=== PATIENT | male | born 1955 | race Caucasian/White ===

== ENCOUNTER 2023-01-03 06:44 | Outpatient (OUT) | payer MEDICARE, OTHER, SELFPAY ==
[2023-01-03 07:14] LABS: Basophils Percent Auto 0.4 % (0.2-2.0); Eosinophils Absolute Auto 0.2 10^3/uL (0.0-0.7); Eosinophils Percent Auto 2.5 % (0.9-7.0); Hematocrit 42.1 % (42.0-54.0); Hemoglobin 14.2 g/dL (14.0-18.0); Immature Granulocytes Abs Auto 0.03 10^3/uL (0.00-0.03); Immature Granulocytes Pct Auto 0.4 % (0.0-0.5); Lymphocytes Absolute Auto 2.2 10^3/uL (1.2-3.8); Lymphocytes Percent Auto 31.9 % (20.5-60.0); Mean Corpuscular HGB Conc 33.7 g/dL (29.9-35.2); Mean Corpuscular Hemoglobin 32.6 pg (25.9-34.0); Mean Corpuscular Volume 96.8 fL (80.0-94.0); Mean Platelet Volume 9.8 fL (9.5-13.5); Monocytes Absolute Auto 0.5 10^3/uL (0.3-0.8); Monocytes Percent Auto 6.9 % (1.7-12.0); Neutrophils Percent Auto 57.9 % (43.0-75.0); Platelet Count 189 10^3/uL (150-450); Red Blood Count 4.35 10^6/uL (4.70-6.10); Red Cell Distribution Width 12.9 % (11.0-15.0); White Blood Count 6.8 10^3/uL (4.0-11.0)
[2023-01-03 08:07] LABS: Estimated Average Glucose 105 mg/dL; Glycohemoglobin A1C 5.3 % (4.5-6.2)
[2023-01-03 08:17] LABS: Alanine Aminotransferase 24 U/L (16-63); Albumin Globulin Ratio 1.1; Albumin Level 3.6 g/dL (3.4-5.0); Alkaline Phosphatase 52 U/L (46-116); Anion Gap 13.4; Aspartate Amino Transferase 17 U/L (15-37); BUN Creatinine Ratio 15.2; Bilirubin Total 0.6 mg/dL (0.2-1.0); Calcium 8.6 mg/dL (8.5-10.1); Carbon Dioxide 26.3 mmol/L (21.0-32.0); Chloride 100 mmol/L (98-107); Chol HDL Ratio 4.8; Cholesterol 209 mg/dL (<=200); Estimated GFR (African America >60 (>=60); Estimated GFR (Non-African Ame >60 (>=60); Free T3 2.67 pg/mL (2.18-3.98); Globulin 3.2 g/dL; Glucose 101 mg/dL (74-106); HDL Cholesterol 44 mg/dL (40-60); Potassium 3.7 mmol/L (3.5-5.1); Sodium 136 mmol/L (136-145); Thyroid Stimulating Hormone 1.158 uIU/mL (0.358-3.740); Total Protein 6.8 g/dL (6.4-8.2); Triglycerides 129 mg/dL (<=150); Uric Acid 4.9 mg/dL (3.5-7.2); VLDL CHOLESTEROL 25.8 mg/dL
[2023-01-03 08:25] LABS: Prostate Specific Antigen Dx 0.53 ng/mL (<=4.00)
[2023-01-03 15:24] LABS: Occult Blood Positive
[2023-01-04 11:19] LABS: Insulin 12.9 uIU/mL (2.6-24.9)
== END 2023-01-03 06:45 | disposition home or self-care (01) ==
LOC: LAB 06:44
PROVIDERS: PCP Nurse Practitioner Family; Visit Provider Nurse Practitioner Family
DX: Z00.00 Encounter for general adult medical examination without abnormal findings (principal); E78.5 Hyperlipidemia, unspecified; R73.09 Other abnormal glucose; Z12.5 Encounter for screening for malignant neoplasm of prostate; Z12.12 Encounter for screening for malignant neoplasm of rectum
CPT/HCPCS: 36415; 80053; 80061; 83036; 83525; 84153; 84436; 84443; 84481; 84550; 85025; G0328

== ENCOUNTER 2023-02-08 13:46 | Outpatient (OUT) | payer MEDICARE, OTHER, SELFPAY | END 2023-02-08 13:47 | disposition home or self-care (01) | LOC: PST 13:52 | PROVIDERS: PCP Nurse Practitioner Family; Visit Provider Surgery | DX: Z01.818 Encounter for other preprocedural examination (principal); R19.5 Other fecal abnormalities ==

== ENCOUNTER 2023-02-15 07:12 | Day surgery (SDC) | payer MEDICARE, OTHER, SELFPAY ==
--- NOTE | 2023-02-15 07:10 | P.GSPRC_ITS ---
Date of procedure: 02/15/23 Indications for Procedure: Hemoccult-positive stool Pre-op diagnosis: Hemoccult positive stool Post-op diagnosis: other (superficial gastritis without hemorrhage; diverticulosis descending and sigmoid colon;5 millimeter colon polyp mid ascending colon) Procedure: EGD with biopsy antrum Colonoscopyhot snare polyp mid ascending colon 5 mm Findings: diverticulosis Gastritis without hemorrhage Ascending colon polyp unspecified 5 mm may or may not have been retrieved Anesthesia: [facility] [place] Surgeon: Semaj Adames Procedure Summary: PROCEDURE: The patient was taken to the Endoscopy Suite, placed in the left lateral recumbent position, given IV sedation as above. Olympus EGD scope was advanced under direct visualization into the pharynx esophagus stomach through the pylorus into the 1st 2nd 3rd and 4th portions of the duodenum which were completely normal. The scope was returned to the stomach retroflexed on itself looking the GE junction which was normal. No polyps tumors or ulcers were seen but he did have superficial gastritis without hemorrhage and biopsies were taken in the antrum to rule out H. pylori. The scope was withdrawn to the esophagus which was completely normal including the GE junction. A rectal digital exam was performed. The sphincter tone was found to be normal. No rectal masses were appreciated. The Olympus video colonoscope was advanced under direct visualization to the rectum, sigmoid colon, descending colon, transverse colon and ascending colon to the ileocecal valve. The underside of the valve was seen. the cecal lumen was visualized.The scope was slowly withdrawn with air being desufflated as it was withdrawn. No gross tumors were seen. theree was a small 5 mm polyp in the mid ascending colon which was snared but unsure if it was retrieved or not. It appeared benign. If it was retrieved it was sent to pathology. He had numerous diverticuli in the sigmoid and descending colon. No other pathology was found. The scope was removed from the rectum. Prostate was smooth slightly enlarged without nodules. The patient tolerated the procedure well and went to the Recovery Area in satisfactory condition. I recommend he should follow high-fiber diet for the rest of his life and have surveillance colonoscopy in five years due to the polyp. Will await biopsies for ruling out gastritis or H. pylori.bowel preparation was excellent. Estimated blood loss (mL): 1 Specimens: antral biopsy Colon polyp was retrieved ascending colon Complications: No Pathology: other (antral biopsies and colon polyp if sent) Condition: stable Disposition: PACU
[2023-02-15 07:25] VITALS: BP 122/64; PULSE 66; RESP 16; TEMP 35.9; O2SAT 99; BMI 21.9
[2023-02-15] MEDS: LACTATED RINGER'S SOLUTION 1,000 ML 50 ML IV (07:30)
[2023-02-15 09:22] VITALS: BP 124/76; PULSE 64; RESP 14; TEMP 36.4; O2SAT 99
[2023-02-15 09:37] VITALS: BP 123/74; PULSE 64; RESP 16; O2SAT 97
[2023-02-15 09:50] VITALS: BP 118/73; PULSE 64; RESP 16; O2SAT 98
[2023-02-16 15:31] LABS: H Pylori Tissue, Urease Negative
== END 2023-02-15 09:57 | disposition home or self-care (01) ==
PROVIDERS: PCP Nurse Practitioner Family; Visit Provider Surgery
PROC: (CPT 43239; principal; 2023-02-15 08:10)
DX: R19.5 Other fecal abnormalities (principal); D12.2 Benign neoplasm of ascending colon; K29.30 Chronic superficial gastritis without bleeding; F41.9 Anxiety disorder, unspecified; F32.A Depression, unspecified; E78.5 Hyperlipidemia, unspecified; Z87.891 Personal history of nicotine dependence; K57.30 Diverticulosis of large intestine without perforation or abscess without bleeding
CPT/HCPCS: 43239; 45385; 87077; 88305; 88342; 99999; J2704

== ENCOUNTER 2023-04-13 07:55 | Outpatient (OUT) | payer MEDICARE, OTHER, SELFPAY ==
--- NOTE | 2023-04-13 08:15 | CT_ITS ---
[address] [address] Patient Name: ARMANDO BROOKS MRN: [id number] date: 1955 Sex: M Assigned Patient Location: CT Current Patient Location: Accession/Order Number: [id number] Exam Date: 04/13/2023 08:06 Report Date: 04/14/2023 07:42 At the request of: DON KATZ Procedure: CT lung screening low-dose EXAMINATION: CT lung screening low-dose HISTORY: Former Smoker Z87.891, Multiple Pulmonary Nodules R91.8 COMPARISON: CT LUNG CANCER SCREENING 04/12/2022 TECHNIQUE: Axial, Coronal, and Sagittal images were created without the administration of IV contrast material. Dose reduction techniques were achieved by using automated exposure control and/or adjustment of mA and/or kV according to patient size and/or use of iterative reconstruction technique. FINDINGS: LUNGS: Stable biapical pleural scarring. Minimal emphysematous changes. No suspicious nodules or acute infiltrates. PLEURA: No mass, effusion, or pneumothorax. VASCULATURE: No abnormality. AUDREY: No mass or pathologic adenopathy. MEDIASTINUM: No mass or pathologic adenopathy. CARDIAC: No enlargement, pericardial thickening, or significant calcification. AORTA: No aneurysm or dissection. CHEST WALL: No mass or axillary adenopathy BONES: No bone lesion or fracture. LIMITED ABDOMEN: No suspicious findings. Limited images of the upper abdomen. OTHER: Negative. CT/CT lung screening low-dose IMPRESSION: 1. Lung-RADS Category 1 Negative. No nodules and definitely benign nodules. Continue annual screening with LDCT in 12 months. Electronically authenticated by: BRAVO KHAN Date: 04/14/2023 07:42
== END 2023-04-13 07:56 | disposition home or self-care (01) ==
LOC: CT 07:55
PROVIDERS: PCP Nurse Practitioner Family; Visit Provider Nurse Practitioner Family
DX: R91.8 Other nonspecific abnormal finding of lung field (principal); Z87.891 Personal history of nicotine dependence
CPT/HCPCS: 71271

== ENCOUNTER 2023-06-28 11:01 | Outpatient (OUT) | payer MEDICARE, OTHER, SELFPAY ==
--- NOTE | 2023-06-28 11:03 | ECG_ITS ---
[facility] [place] Test Date: 2023-06-28 Pat Name: ARMANDO BROOKS Department: Room: - Gender: Male [employer]: : 1955 Requested By: EHSAN LUNA Order Number: [id number] Reading MD: KAREN ALFONSO Measurements Intervals [place] Rate: 48 P: 52 MI: 200 QRS: -47 QRSD: 80 T: 78 QT: 447 QTc: 402 Interpretive Statements SINUS BRADYCARDIA LEFT ANTERIOR FASCICULAR BLOCK [QRS AXIS <= -45, QR IN I, RS IN II] No previous ECG available for comparison Electronically Signed On 06-28-2023 22:25:46 EST by KAREN ALFONSO
--- OUTSIDE RECORDS SUMMARY | 2023-06-28 11:07 | XMS_ITS | CCD ---
Author Name Unknown Address [address] [facility] [address] [place] [address] Organization [facility] Care Team Providers Care Certified Physician'S Assistant Name Role Phone DON KATZ Primary Care Physician Kurt Cooper Unavailable DON KATZ Admitting Unavailable DON KATZ Attending Unavailable OSMANI, DR KURT Hairston Consulting Unavailable STERLING, DON Primary Care Unavailable STERLING, DON Consulting Unavailable ODELL, DR DAVIS Consulting Unavailable ODELL, DR DAVIS Admitting Unavailable ODELL, DR DAVIS Attending Unavailable STERLING, DON Primary Care Unavailable ERIN, DR BRAVO Ford Consulting Unavailable STERLING, DON Admitting Unavailable STERLING, DON Attending Unavailable STERLING, DON Consulting Unavailable STERLING, DON Primary Care Unavailable STERLING, DON Admitting Unavailable STERLING, DON Attending Unavailable STERLING, DON Primary Care Unavailable TWILA FALLON Admitting Unavailable TWILA FALLON Attending Unavailable TWILA FALLON Consulting Unavailable STERLING, DON Primary Care Unavailable RHYS THAO Consulting Unavailable STERLING, DON Admitting Unavailable STERLING, DON Attending Unavailable STERLING, DON Primary Care Unavailable Semaj LUNA Attending Unavailable DON KATZ S Referring Unavailable Medications Current Medications Medication Drug Class(es) Dates Sig (Normalized) Sig (Original) ALPRAZolam 0.5 mg oral tablet (6 sources) Benzodiazepine Start: 01-29-2021 take 1 tablet by mouth once daily alprazolam 0.5 mg Tab 0.5 mg = 1 tab(s), Oral, Daily, Refills(s) 0 Start Date: 01/29/21 Status: Ordered amylase [id number] unt / lipase 61737 unt / protease [id number] unt delayed release oral capsule (4 sources) take 1 capsule by mouth three to four times daily Zenpep [id number] UNIT 1 CAPSULE Orally 3-4 TIMES A DAY Active chlordiazePOXIDE hydrochloride 5 mg / clidinium bromide 2.5 mg oral capsule (3 sources) Anticholinergic, Benzodiazepine Start: 10-28-2021 take 1 capsule by mouth every eight hours Librax 5-2.5 MG 1 CAPSULE Orally Three times a day for 30 day(s) Oct, Active escitalopram 20 mg oral tablet (6 sources) Serotonin Reuptake Inhibitor Start: 11-26-2020 take 1 mg by mouth once daily escitalopram 20 mg Tab mg tab(s), Oral, Daily, Refills(s) 0 Start Date: 11/26/20 Status: Ordered 12 hr hyoscyamine sulfate 0.375 mg extended release oral tablet (2 sources) Start: 11-09-2021 take 1 tablet by mouth every twelve hours Hyoscyamine Sulfate ER 0.375 MG 1 tablet Orally every 12 hrs for 30 days Oct, Active lovastatin 20 mg oral tablet (6 sources) HMG-CoA Reductase Inhibitor Start: 11-26-2020 take 1 mg by mouth once daily lovastatin 20 mg Tab mg tab(s), Oral, Daily, Refills(s) 0 Start Date: 11/26/20 Status: Ordered meloxicam 15 mg oral tablet (2 sources) Nonsteroidal Anti-inflammatory Drug Start: 11-26-2020 take 1 mg by mouth once daily meloxicam 15 mg oral tablet mg tab(s), Oral, Daily, Refills(s) 0 Start Date: 11/26/20 Status: Ordered omeprazole 40 mg delayed release oral capsule (5 sources) Proton Pump Inhibitor Start: 01-29-2021 take 1 capsule by mouth once daily omeprazole 40 mg Cap-DR 40 mg = 1 cap(s), Oral, Daily, Refills(s) 0 Start Date: 01/29/21 Status: Ordered omeprazole 40 mg Cap-DR (1 source) Start: 01-29-2021 take 1 capsule by mouth once daily omeprazole 40 mg Cap-DR 40 mg = 1 cap(s), Oral, Daily, Refills(s) 0 Start Date: 01/29/21 Status: Ordered pantoprazole 40 mg delayed release oral tablet (3 sources) Proton Pump Inhibitor Start: 10-28-2021 take 1 tablet by mouth every twenty-four hours Pantoprazole Sodium 40 MG 1 tablet Orally Once a day for 30 days Oct, Active sucralfate 1000 mg oral tablet (4 sources) Aluminum Complex Start: 10-13-2021 take 1 tablet by mouth every eight hours Sucralfate 1 GM 1 TABLET Orally THREE TIMES A DAY for 30 day(s) Oct, Active traZODone hydrochloride 50 mg oral tablet (6 sources) Serotonin Reuptake Inhibitor Start: 11-26-2020 take 1 mg by mouth twice daily traZODONE 50 mg Tab mg tab(s), Oral, BID, Refills(s) 0 Start Date: 11/26/20 Status: Ordered take [facility] every twenty-four hours traZODone HCl 50 MG 1 tablet at bedtime as needed Orally Once a day Active 24 hr venlafaxine 75 mg extended release oral capsule (2 sources) Serotonin and Norepinephrine Reuptake Inhibitor Start: 01-29-2021 take 1 capsule by mouth once daily venlafaxine 75 mg Cap-ER 75 mg = 1 cap(s), Oral, Daily, Refills(s) 0 Start Date: 01/29/21 Status: Ordered Start: 01-29-2021 take 1 capsule by mo [facility] once daily venlafaxine 75 mg Cap-ER 75 mg = 1 cap(s), Oral, Daily, Refills(s) 0 Start Date: 01/29/21 Status: Ordered Problems Active Problems Problem Classification Problem Date Documented Da te Episodic/Chronic Abdominal pain (3 sources) Epigastric pain; Translations: [Upper abdominal pain, unspecified] Onset: 10-13-2021 Resolved: 10-13-2021 01-29-2021 Episodic Anxiety disorders (2 sources) Mixed anxiety and depressive disorder 11-26-2020 Chronic Diabetes mellitus without complication (1 source) Type 2 diabetes mellitus without complications; Translations: [TYPE 2 DM WITHOUT COMPLICATIONS] Onset: 01-10-2022 Chronic Disorders of lipid metabolism (6 sources) Hyperlipidemia; Translations: [Hyperlipidemia, unspecified] Onset: 01-08-2022 11-26-2020 Chronic Gastritis and duodenitis (2 sources) Chronic superficial gastritis 02-25-2021 Chronic Other gastrointestinal disorders (4 sources) Irritable bowel syndrome with diarrhea; Translations: [Irritable bowel syndrome with diarrhea] Chronic Other gastrointestinal disorders (1 source) Irritable bowel syndrome with diarrhea Onset: 10-13-2021 Resolved: 10-13-2021 Chronic Other gastrointestinal disorders (2 sources) Disorder of intestine; Translations: [Other specified diseases of intestine] Onset: 10-07-2021 Episodic Other gastrointestinal disorders (2 sources) Borborygmi 01-29-2021 Episodic Other nutritional; endocrine; and metabolic disorders (2 sources) Decrease in appetite 01-28-2021 Episodic Other nutritional; endocrine; and metabolic disorders (2 sources) Loss of appetite 01-29-2021 Episodic Other skin disorders (2 sources) Epidermoid cyst of skin of neck 11-26-2020 Episodic Other skin disorders (2 sources) Infection of sebaceous cyst 2020 Episodic Other skin disorders (2 sources) Night sweats 01-29-2021 Episodic Pancreatic disorders (not diabetes) (3 sources) Disorder of pancreas; Translations: [Other specified diseases of pancreas] Onset: 10-07-2021 Resolved: 10-13-2021 Episodic Residual codes; unclassified (2 sources) Early satiety 01-29-2021 Episodic Residual codes; unclassified (2 sources) Insomnia 11-26-2020 Episodic Screening and history of mental health and substance abuse codes (5 sources) Personal history of nicotine dependence; Translations: [PERSONAL HISTORY OF NICOTINE DEPEND] Onset: 10-18-2021 Episodic Spondylosis; intervertebral disc disorders; other back problems (5 sources) Spondylosis without myelopathy or radiculopathy, cervical region; Translations: [Spondylosis without myelopathy or radiculopathy, thoracic region] Onset: 07-29-2021 Chronic Unclassified (2 sources) Body mass index 20-24 - normal 01-29-2021 Past or Other Problems Problem Classification Problem Date Documented Da te Episodic/Chronic E Codes: Other specified and classifiable (1 source) Caught, crushed, jammed, or pinched between moving objects, initial encounter; Translations: [CAUGHT CRUSH/PINCH BTWN MOV OBJ INT] Onset: 10-18-2021 Episodic Malaise and fatigue (1 source) Other fatigue; Translations: [OTHER FATIGUE] Onset: 01-10-2022 Episodic Other aftercare (1 source) Other nursing home (current) drug therapy; Translations: [OTH SENIOR CARE CURRENT DRUG THERAPY] Onset: 10-18-2021 Episodic Other connective tissue disease (3 sources) Pain in right finger(s); Translations: [PAIN IN RIGHT FINGERS] Onset: 10-10-2021 Episodic Other connective tissue disease (1 source) Abnormal posture; Translations: [ABNORMAL POSTURE] Onset: 08-03-2021 Episodic Spondylosis; intervertebral disc disorders; other back problems (5 sources) Cervicalgia; Translations: [CERVICALGIA] Onset: 07-26-2021 Episodic Sprains and strains (1 source) Unspecified sprain of right middle finger, initial encounter; Translations: [UNS SPRAIN RT MIDDLE FINGER INITIAL] Onset: 10-18-2021 Episodic Results Test Name Value Interpretation Reference Range Facility Consent for Procedure/Surger yon 06-22-2023 Consent for Procedure/Surgery [id number] Normal [facility] Ambulatory Visit Summaryon 0 06-20-2023 Ambulatory Visit Summary ARMANDO ZHU Liliana :1955 Visit Date:06/20/2023 Ambulatory Visit Instructions Your Care Team Attending Physician - Semaj LUNA MD Primary Care Physician - DON KATZ CNP Referring Physician - DON KATZ CNP This Is Your Medications List Contact prescribing physician if questions or concerns alprazolam (alprazolam 0.5 mg Tab) escitalopram (escitalopram 20 mg Tab) hyoscyamine (Levsin 0.125 mg SL Tab) lovastatin (lovastatin 40 mg Tab) trazodone (traZODONE 50 mg Tab) Procedures Performed EGD - Esophagogastroduodenoscopy (02/17/2021), Colonoscopy (11/12/2019), Tonsillectomy and adenoidectomy. Discharge Vitals Heart Rate (Peripheral) 60 Respiratory Rate 16 Blood Pressure 100/66 Height 177.8 cm Height 70 in Weight 70.7 kg Weight 155.54 lb BMI 22.36 Medications What How Much When Instructions Unchanged alprazolam (alprazolam 0.5 mg Tab) 1 Tablets By Mouth Every day Contact prescribing physician if questions or concerns Unchanged escitalopram (escitalopram 20 mg Tab) By Mouth Every day Contact prescribing physician if questions or concerns Unchanged hyoscyamine (Levsin 0.125 mg SL Tab) 1 Tablets By Mouth 2 times a day Contact prescribing physician if questions or concerns Unchanged lovastatin (lovastatin 40 mg Tab) 1 Tablets By Mouth Every day Contact prescribing physician if questions or concerns Unchanged trazodone (traZODONE 50 mg Tab) By Mouth 2 times a day Contact prescribing physician if questions or concerns Allergies No Known Allergies Problems Ongoing - Any problem that you are currently receiving treatment for. BMI 22.0-22.9, adult Borborygmus Depression with anxiety Diverticular disease of colon Early satiety Emphysema lung Epidermoid cyst of neck Epigastric pain Gastritis Hyperlipidemia Infected sebaceous cyst Insomnia Irritable bowel syndrome with diarrhea Multiple nodules of lung Night sweats Historical - Any problem that you are no longer receiving treatment for. Decreased appetite Loss of appetite for more than 2 weeks Patient Survey You may receive a survey via text or e-mail asking about your office visit. Please share your experience with us by completing your survey. We appreciate your feedback and thank you for choosing us for your care. Normal [facility] Facesheeton 06-20-2023 Facesheet [id number] Normal [facility] Physician Referralon 024 Physician Referral [id number] Normal [facility] CT LUNG CANCER SCREENINGon 06-13-2021 CT LUNG CANCER SCREENING EXAMINATION: CT LUNG CANCER SCREENING HISTORY: Nicotine dependence COMPARISON: CT chest 03/26/2021 TECHNIQUE: Axial, Coronal, and Sagittal images were created without the administration of IV contrast material. Dose reduction techniques were achieved by using automated exposure control and/or adjustment of mA and/or kV according to patient size and/or use of iterative reconstruction technique. FINDINGS: LUNGS: Mild emphysematous changes and stable 5 mm nodule versus scarring within left lung base adjacent diaphragm. PLEURA: Biapical pleural scarring. No pleural effusion or pneumothorax. VASCULATURE: No abnormality. AUDREY: No mass or pathologic adenopathy. MEDIASTINUM: No mass or pathologic adenopathy. CARDIAC: No enlargement, pericardial thickening, or significant calcification. AORTA: No aneurysm or dissection. CHEST WALL: No mass or axillary adenopathy BONES: No bone lesion or fracture. LIMITED ABDOMEN: No suspicious findings. Limited images of the upper abdomen. OTHER: Negative. IMPRESSION: 1. Lung-RADS Category 1 Negative. No nodules and definitely benign nodules. Continue annual screening with LDCT in 12 months. 2. Stable mild emphysematous changes and biapical pleural scarring. Electronically authenticated by: BRAVO KHAN Date: 2022-04-13 06:42 Normal [facility] INSULINon 01-10-2022 Insulin 15.8 uIU/mL Normal 2.6-24.9 [facility] Comment on above: Performed By: #### I NSULIN #### [facility] [address] [address] [address] Yarelis Peñaloza CBC AUTO DIFFon 01-08-2022 BASO # 0.0 103/ul Normal 0.0-0.1 [facility] Comment on above: Performed By: #### C BC ####[facility] [address] [address]DrSotero Peñaloza Basophils/100 WBC (Bld) 0.5 % Normal 0.2-2.0 [facility] Comment on above: Performed By: #### C BC ####[facility] [address] [address]Dr. Yarelis Peñaloza EO # 0.1 103/ul Normal 0.0-0.7 [facility] Comment on above: Performed By: #### C BC ####[facility] [address] [address]Dr. Yarelis Peñaloza Eosinophils/100 WBC (Bld) 1.0 % Normal 0.9-7.0 [facility] Comment on above: Performed By: #### C BC ####[facility] [address] [address]DrSotero Peñaloza Erythrocyte distribution width (RBC) [Ratio] 11.9 % Normal 11.0-15.0 [facility] Comment on above: Performed By: #### C BC ####[facility] [address] [address]DrSotero Peñaloza Hematocrit (Bld) [Volume fraction] 42.5 % Normal 42.0-54.0 [facility] Comment on above: Performed By: #### C BC ####[facility] [address] [address]Dr. Yarelis Peñaloza Hemoglobin (Bld) [Mass/Vol] 14.5 g/dL Normal 14.0-18.0 [facility] Comment on above: Performed By: #### C BC ####[facility] [address] [address]Dr. Yarelis Peñaloza IG # 0.04 10e3/ul Critically high 0.00-0.03 [facility] Comment on above: Performed By: #### C BC ####[facility] [address] [address]Dr. Yarelis Peñaloza IG % 0.5 % Normal 0.0-0.5 [facility] Comment on above: Performed By: #### C BC ####[facility] [address] [place], [place] [address]DrSotero Peñaloza LYMPH # 1.8 103/ul Normal 1.2-3.8 [facility] Comment on above: Performed By: #### C BC ####[facility] [address] [place], [place] [address]Dr. Yarelis Peñaloza Lymphocytes/100 WBC (Bld) 20.7 % Normal 20.5-60.0 [facility] Comment on above: Performed By: #### C BC ####[facility] [address] [address]DrSotero Peñaloza MANUAL DIFF REQ NO Normal [facility] Comment on above: Performed By: #### C BC ####[facility] [address] [place], [place] [address]DrSotero Peñaloza MCH (RBC) [Entitic mass] 32.5 pg Normal 25.9-34.0 [facility] Comment on above: Performed By: #### C BC ####[facility] [address] [place], [place] [address]DrSotero Peñaloza MCHC (RBC) [Mass/Vol] 34.1 g/dL Normal 29.9-35.2 [facility] Comment on above: Performed By: #### C BC ####[facility] [address] [place], [place] [address]DrSotero Santoyo Peñaloza MCV (RBC) [Entitic vol] 95.3 fL Critically high 80.0-94.0 [facility] Comment on above: Performed By: #### C BC ####[facility] [address] [address]Dr. Yarelis Peñaloza MONO # 0.6 103/ul Normal 0.3-0.8 [facility] Comment on above: Performed By: #### C BC ####[facility] [address] [place], [place] [address]Dr. Yarelis Jh Monocytes/100 WBC (Bld) 7.1 % Normal 1.7-12.0 [facility] Comment on above: Performed By: #### C BC ####[facility] [address] [place], [place] [address]Dr. Yarelis Peñaloza NEUT # 6.1 103/ul Normal 1.4-6.5 [facility] Comment on above: Performed By: #### C BC ####[facility] [address] [place], [place] [address]Dr. Yarelis Jh Neutrophils/100 WBC (Bld) 70.2 % Normal 43.0-75.0 [facility] Comment on above: Performed By: #### C BC ####[facility] [address] [place], [place] [address]Dr. Yarelis Peñaloza Platelet mean volume (Bld) [Entitic vol] 9.8 fL Normal 9.5-13.5 [facility] Comment on above: Performed By: #### C BC ####[facility] [address] [place], [place] [address]Dr. Yarelis Jh PLT 241 103/ul Normal 150-450 [facility] Comment on above: Performed By: #### C BC ####[facility] [address] [place], [place] [address]DrSotero Yarelis Jh RBC 4.46 106/ul Critically low 4.70-6.10 [facility] Comment on above: Performed By: #### C BC ####[facility] [address] [place], [place] [address]Dr. Yarelis Peñaloza WBC 8.7 103/ul Normal 4.0-11.0 [facility] Comment on above: Performed By: #### C BC ####[facility] [address] [place], [place] [address]DxDr. Yarelis Peñaloza GLYCOHEMOGLOBIN A1Con 2021 ADA RECOMMENDATION SEE BELOW Normal [facility] Comment on above: Result Comment: ADA RECOMMENDED LIMIT 4.0 - 6.0 ADA THERAPEUTIC TARGET < 7.0 ACTION SUGGESTED > 7.0 Performed By: #### A 1C #### [facility] [address] [address] [address] Yarelis Peñaloza Glucose [Mass/Vol] 108 mg/dL Normal [facility] Comment on above: Performed By: #### A 1C #### [facility] [address] [address] [address] Yarelis Peñaloza HbA1c (Bld) [Mass fraction] 5.4 % Normal 4.5-6.2 [facility] Comment on above: Performed By: #### A 1C #### [facility] [address] [address] [address] Yarelis Peñaloza LIPID PROFILEon 01-08-2022 CHOL-HDL RATIO NORM SEE BELOW Normal [facility] Comment on above: Result Comment: 3.3 - 4.4 LOW RISK 4.4 - 7.1 AVERAGE RISK 7.1 - 11.0 MODERATE RISK >11.0 HIGH RISK Performed By: #### L IPID, CMP, URIC #### [facility] [address] [address] [address] Yarelis Peñaloza Cholesterol [Mass/Vol] 174 mg/dL Normal <=200 [facility] Comment on above: Performed By: #### L IPID, CMP, URIC #### [facility] [address] [address] [address] Yarelis Peñaloza Cholesterol in HDL [Mass/Vol] 38 mg/dL Critically low 40-60 [facility] Comment on above: Performed By: #### L IPID, CMP, URIC #### [facility] [address] [address] [address] Yarelis Peñaloza Cholesterol in LDL [Mass/Vol] 111.4 mg/dL Normal [facility] Comment on above: Performed By: #### L IPID, CMP, URIC #### [facility] [address] [place] [address] Dr. Yarelis Peñaloza Cholesterol.total/ Cholesterol in HDL [Mass ratio] 4.6 {ratio} Normal [facility] Comment on above: Performed By: #### L IPID, CMP, URIC #### [facility] [address] [address] [address] Yarelis Peñaloza HDL NORMAL > or = 60 mg/dl - LO W CARDIOVASCULAR RISK <40 mg/dl - HIGH CARDIOVASCULAR RISK Normal [facility] Comment on above: Performed By: #### L IPID, CMP, URIC #### [facility] [address] [place] [address] Dr. Yarelis Peñaloza LDL CALC NORMAL SEE BELOW Normal [facility] Comment on above: Result Comment: <100 mg/dl OPTIMAL 100 - 129 mg/dl NEAR OR ABOVE OPTIMAL 130 - 159 mg/dl BORDERLINE HIGH 160 - 189 mg/dl HIGH >190 mg/dl VERY HIGH Performed By: #### L IPID, CMP, URIC #### [facility] [address] [address] [address] Yarelis Peñaloza Triglyceride [Mass/Vol] 123 mg/dL Normal <=150 [facility] Comment on above: Performed By: #### L IPID, CMP, URIC #### [facility] [address] [place] [address] Dr. Yarelis Peñaloza VLDL CALC 24.6 mg/dL Normal [facility] Comment on above: Performed By: #### L IPID, CMP, URIC #### [facility] [address] [place] [address] Dr. Yarelis Peñaloza PROF 14(COMP METB)on 022 Albumin [Mass/Vol] 3.8 g/dL Normal 3.4-5.0 [facility] Comment on above: Performed By: #### L IPID, CMP, URIC #### [facility] [address] [place] [address] Dr. Yarelis Peñaloza Albumin/Globulin [Mass ratio] 1.2 {ratio} Normal [facility] Comment on above: Performed By: #### L IPID, CMP, URIC #### [facility] [address] [address] [address] Yarelis Peñaloza ALP [Catalytic activity/Vol] 67 U/L Normal 46-116 [facility] Comment on above: Performed By: #### L IPID, CMP, URIC #### [facility] [address] [place] [address] Dr. Yarelis Peñaloza ALT [Catalytic activity/Vol] 14 U/L Critically low 16-63 [facility] Comment on above: Performed By: #### L IPID, CMP, URIC #### [facility] [address] [place] [address] Dr. Yarelis Peñaloza Anion gap [Moles/Vol] 12.7 mmol/L Normal [facility] Comment on above: Performed By: #### L IPID, CMP, URIC #### [facility] [address] [place] [address] Dr. Yarelis Peñaloza AST [Catalytic activity/Vol] 11 U/L Critically low 15-37 [facility] Comment on above: Performed By: #### L IPID, CMP, URIC #### [facility] [address] [place] [address] Dr. Yarelis Peñaloza Bilirubin [Mass/Vol] 0.7 mg/dL Normal 0.2-1.0 [facility] Comment on above: Performed By: #### L IPID, CMP, URIC #### [facility] [address] [place] [address] Dr. Yarelis Peñaloza Calcium [Mass/Vol] 8.6 mg/dL Normal 8.5-10.1 [facility] Comment on above: Performed By: #### L IPID, CMP, URIC #### [facility] [address] [place] [address] Dr. Yarelis Peñaloza Chloride [Moles/Vol] 103 mmol/L Normal 98-107 [facility] Comment on above: Performed By: #### L IPID, CMP, URIC #### [facility] [address] [place] [address] Dr. Yarelis Peñaloza CO2 [Moles/Vol] 26.9 mmol/L Normal 21.0-32.0 [facility] Comment on above: Performed By: #### L IPID, CMP, URIC #### [facility] [address] [address] [address] Yarelis Peñaloza Creatinine [Mass/Vol] 0.97 mg/dL Normal 0.70-1.30 [facility] Comment on above: Performed By: #### L IPID, CMP, URIC #### [facility] [address] [address] [address] Yarelis Peñaloza EGFR-AF WALLISIAN >60 Normal >=60 [facility] Comment on above: Performed By: #### L IPID, CMP, URIC #### [facility] [address] [address] [address] Yarelis Peñaloza EGFR-NON AF WALLISIAN >60 Normal >=60 [facility] Comment on above: Performed By: #### L IPID, CMP, URIC #### [facility] [address] [address] [address] Yarelis Peñaloza Globulin (S) [Mass/Vol] 3.2 g/dL Normal [facility] Comment on above: Performed By: #### L IPID, CMP, URIC #### [facility] [address] [place] [address] Dr. Yarelis Peñaloza Glucose [Mass/Vol] 102 mg/dL Normal 74-106 [facility] Comment on above: Performed By: #### L IPID, CMP, URIC #### [facility] [address] [address] [address] Yarelis Peñaloza Potassium [Moles/Vol] 3.6 mmol/L Normal 3.5-5.1 [facility] Comment on above: Performed By: #### L IPID, CMP, URIC #### [facility] [address] [address] [address] Yarelis Peñaloza Protein [Mass/Vol] 7.0 g/dL Normal 6.4-8.2 [facility] Comment on above: Performed By: #### L IPID, CMP, URIC #### [facility] [address] [address] [address] Yarelis Peñaloza Sodium [Moles/Vol] 139 mmol/L Normal 136-145 [facility] Comment on above: Performed By: #### L IPID, CMP, URIC #### [facility] [address] [address] [address] Yarelis Peñaloza Urea nitrogen [Mass/Vol] 17.0 mg/dL Normal 7.0-18.0 [facility] Comment on above: Performed By: #### L IPID, CMP, URIC #### [facility] [address] [address] [address] Yarelis Peñaloza Urea nitrogen/Creatinin e [Mass ratio] 17.5 mg/mg Normal [facility] Comment on above: Performed By: #### L IPID, CMP, URIC #### [facility] [address] [place] [address] Dr. Yarelis Peñaloza URIC ACID SERUMon 01-08-2022 Urate [Mass/Vol] 4.8 mg/dL Normal 3.5-7.2 [facility] Comment on above: Performed By: #### L IPID, CMP, URIC #### [facility] [address] [address] [address] Yarelis Peñaloza [place] hepatobiliary w pharmon 0 10-21-2021 [place] hepatobiliary w pharm [facility] [place] [address] Nuclear Medicine Report Signed Patient: Armando Zhu MR#: [id number] 4 : 1955 Acct:[id number] Age/Sex: 65 / M ADM Date: 10/21/21 Loc: [place] Room: Type: [facility] Attending Dr: Kurt Cooper DO Ordering Provider: Kurt Cooper Jr, DO Date of Service: 10/21/21 NM/NM hepatobiliary w pharm: Upper abdominal pain Copies to: DO Marlo Hollis Jr, II, MD Pamela Sue Cramer, [employer] [place] hepatobiliary w pharm 10/21/2021 8:45 AM SIGN AND SYMPTOMS: Nausea, vomiting, bloating, abdominal pain PROTOCOL: Following IV administration of Tc-99m mebrofenin 1 hour of dynamic imaging of gallbladder and liver. Following the visualization of the gall bladder one static right lateral image was obtained. Following IV administration of CCK, 30 minutes of dynamic imaging obtained. RADIOPHARMACEUTICAL: 6.5 mCi of intravenous technetium 99m MDP COMPARISON: None. FINDINGS: Normal hepatic transit time. Prompt excretion into the small bowel. Prompt excretion into the gallbladder. Gallbladder ejection fraction is calculated at 58.8%. NM/NM hepatobiliary w pharm IMPRESSION: No evidence of acute cholecystitis. There is a normal gallbladder ejection fraction. Impression dictated by: Marlo Payton M.D.10/21/2021 2:05 PM Dictation Location: [place] [address] Transcribed By: [facility] 10/21/211404 Dictated By: Marlo Payton II, MD 10/21/211401 Signed By: 10/21/21 140 [facility] XR HAND RT MIN 3Von 10-11-19 XR HAND RT MIN 3V EXAM: XR HAND RT MIN 3V DATE: 10/10/2021 12:54 PM EDT INDICATION: Swelling COMPARISON: None. TECHNIQUE: 3 views right hand FINDINGS: No acute fracture. Normal osseous alignment. Mild soft tissue swelling of the dorsal hand. No retained radiopaque foreign body. IMPRESSION: 1. No acute osseous abnormality. 2. Mild soft tissue swelling of the hand. Electronically authenticated by: RHYS THAO Date: 2021-10-10 13:44 Normal [facility] XR CSPINE MIN 4 VIEWSon 07-13 XR CSPINE MIN 4 VIEWS EXAMINATION: XR CSPINE MIN 4 VIEWS, XR TSPINE 3 VIEWS HISTORY: Neck pain COMPARISON: No relevant comparison available. FINDINGS: BONES: Normal alignment of the cervical and thoracic spine on the lateral projections. 9 degrees of thoracic dextrocurvature measured from T1 to T11. Moderate degenerative changes C5-C6. Mild degenerative changes throughout the remainder of the spine DISC SPACES: Moderate disc space narrowing C5-C6 PARASPINOUS: Negative. No paraspinous abnormality is seen. OTHER: Negative. IMPRESSION: Moderate degenerative changes C5-C6 Dextrocurvature of the thoracic spine Electronically authenticated by: KURT KEEN Date: 2021-07-26 14:30 Normal [facility] Vital Signs Date Time Vital Sign Value Performing Clinician Dina william 10-13-2021 14:30-0400 Body height 177.8 cm Kurt Cooper Other [employer] Other 10-13-2021 14:30-0400 Body mass index (BMI) [Ratio] 24.1 kg/m2 Kurt Cooper Other [employer] Other 10-13-2021 14:30-0400 Body weight 76.2 kg Kurt Cooper Other [employer] Other 10-13-2021 14:30-0400 Diastolic blood pressure 74 mm[Hg] Kurt Cooper Other [employer] Other 10-13-2021 14:30-0400 Systolic blood pressure 136 mm[Hg] Kurt Cooper Other [employer] Other 10-07-2021 13:26-0400 Diastolic blood pressure 67 mm[Hg] [place]Exactly [facility] 10-07-2021 13:26-0400 Systolic blood pressure 113 mm[Hg] [place]Exactly [facility] Encounters Encounter Date Encounter Type Care Provider Facility Start: 06-20-2023 End: 06-21-2023 ambulatory Semaj LUNA Facility:[facility] Start: 04-12-2022 End: 04-13-[address] SUSAN BAIN Facility: Start: 01-08-2022 End: 01-09-2022 ambulatory DON KATZ Facility:[facility] Start: 12-29-2021 End: 12-29-2021 Patient encounter procedure Thing5 [facility] Start: 12-01-2021 End: 12-01-2021 ambulatory Kurt Cooper Other [employer] Other Start: 12-01-2021 Telephone encounter Kurt Cooper [facility] Start: 11-09-2021 End: 11-09-2021 ambulatory Kurt Cooper Other [employer] Other Start: 11-09-2021 Telephone encounter Kurt Cooper [facility] Start: 10-28-2021 End: 10-28-2021 ambulatory Kurt Cooper Other [facility] Other Start: 10-28-2021 Telephone encounter Kurt Cooper [facility] Start: 10-13-2021 End: 10-13-2021 ambulatory Kurt Cooper Other [employer] Other Start: 10-13-2021 Office outpatient ne w 45 minutes Kurt Cooper [facility] Start: 10-10-2021 End: 10-10-2021 ambulatory TWILA FALLON Facility:[facility] Start: 10-07-2021 End: 10-07-2021 Patient encounter procedure Hue ALMONTE [facility] Start: 10-06-2021 ambulatory DON KATZ Facility: [facility] Start: 07-29-2021 End: 08-18-2021 ambulatory DON KATZ Facility:[facility] Start: 07-26-2021 End: 07-27-2021 ambulatory DON KATZ Facility:[facility] Procedures Date Procedure Procedure Detail Performing Clinician Start: 01-08-2022 PSA screening DON DAVID Comment on above: Performed By: #### P [facility] #### [facility] [address] [place] [address] Dr. Yarelis Peñaloza Start: 02-17-2021 Esophagogastroduodenoscopy Hue Asencio Start: 11-12-2019 Colonoscopy Hue Asencio Tonsillectomy and adenoidectomy Hue ALMONTE Immunizations Immunization Date Immunization Notes Care Provider Fa efrainty 03-15-2021 influenza virus vaccine, unspecified formulation Hue ALMONTE [facility] Payers Date Payer Category Payer Medicare [id number] 2023 Unknown [id number] 1957 Self-pay 1959 Unknown [id number] 2. [id number] 1957 Unknown [id number] 2.16.84 [id number] 1957 Unknown [id number] 2.16.84 [id number] 1957 Unknown [id number] 2.16.84 [id number] 1957 Unknown [id number] 2.16.84 [id number] 1957 Unknown [id number] 2.16.84 [id number] 1957 Unknown [id number] 2.16.84 [id number] 1957 Unknown [id number] 2.16.8 [id number] Social History Date Type Detail Facility Start: 10-07-2021 Tobacco smoking status Ex-smoker (fi nding) [facility] Tobacco smoking status Never [facility] Sex Assigned At Male [facility] Clinical Note 06-20-2023 Note Date & Type Note Facility 06-20-2023 Note Chief Complaint consultation for left inguinal hernia HPI Staff 67 year old male presents on consultation from Pennie Kazt for left inguinal hernia. Reports he noted bulge March 2023. Denies not believe this has changed in size since first noted. He is able to reduce bulge without difficulty. Bulge has never been red. Denies nausea or vomiting. Verbalized he struggles with difficulty moving bowels and pain near area of bulge if he does not take daily fiber supplement. No imaging completed. History of Present Illness 67 yo male with h/o hyperlipidemia, depression with anxiety, referred for Left inguinal hernia; patient noted left groin bulge in March, slight increase in size since then, occasional discomfort; no skin changes, no N/V or bowel changes; reduces spontaneously when he lies down; no previous abd operations; no asa or NSAID use; no tobacco use. Review of Systems PHQ Score Initial Depression Screen Score: 0 SCORE ROS - Provider Constitutional: no fever, no sweats, no weight loss. Eyes: no glasses, no blurred vision, no visual loss. ENMT: no dentures, no hoarseness, no swallowing difficulties, no hearing loss, no ear infection(s), no nose bleeds. Cardiovascular: normal blood pressure, no chest pain, regular heartbeat, no heart murmur. Respiratory: no shortness of breath, no cough, no asthma, no wheezing. Gastrointestinal: no nausea, no vomiting, no diarrhea, no constipation, no blood in stool, no change in bowel habits, no abdominal pain, no hepatitis. Genitourinary: no kidney stones, no urine infection, no dysuria. Musculoskeletal: no pain, no weakness. Skin: no changing moles, no rash, no skin lumps. Neurologic: no seizures, no epilepsy, no headache. Psychiatric: no emotional or psychiatric problem. Heme/Lymph: no bleeding problems, no anemia, no blood clots, no transfusions. Allergy/Immunologic: no swollen lymph nodes/glands, no IV drug abuse. Other: Additional ROS info: Except as noted in the above Review of Systems and in the History of Present Illness, all other systems have been reviewed and are negative or noncontributory. Physical Exam Vitals & Measurements HR: 60(Peripheral) RR: 16 BP: 100/66 HT: 70 in HT: 177.8 cm WT: 70.7 kg WT: 155.54 lb BMI: 22.36 HEENT: normal conjunctiva, sclera clear, no scleral icterus, EOM intact, PERRLA, oral mucosa moist without lesions. Neck: trachea midline, no mass, symmetric, no thyromegaly or nodules, no adenopathy Respiratory: lungs CTA, respirations non labored. Cardiovascular: regular rate and rhythm, no murmur, no pedal edema or varicosities. Gastrointestinal: soft, non distended, no tenderness, no masses, reducible left inguinal hernia, no skin changes, diastasis recti no, no hepatosplenomegaly; normal bs Lymphatic: no cervical adenopathy, no supraclavicular adenopathy, no inguinal adenopathy. Musculoskeletal: normal gait, digits and nails without infection, nodes, cyanosis, clubbing. Skin: no rashes, no lesions, no ulcers, no subcutaneous nodules, induration. Psychiatric/Neuro: oriented to time, place, person, judgement normal, affect appropriate for age, insight intact, no focal deficits. Tests: , review of old records completed , Discussed surgical options, risks, and possible complications with patient. Assessment/Plan 1. Reducible left inguinal hernia (K40.90: Unilateral inguinal hernia, without obstruction or gangrene, not specified as recurrent) plan left inguinal herniorrhaphy with mesh insertion, informed consent obtained. signs/symptoms of incarceration/strangulation of hernia explained in detail, and patient understands that he should seek prompt medical evaluation if they were to occur. Ancef 2 gms IV prior to OR TAP block per anesthesia SCDs Follow-up No qualifying data available Problem List/Past Medical History Ongoing BMI 22.0-22.9, adult Borborygmus Depression with anxiety Diverticular disease of colon Early satiety Emphysema lung Epidermoid cyst of neck Epigastric pain Gastritis Hyperlipidemia Infected sebaceous cyst Insomnia Irritable bowel syndrome with diarrhea Multiple nodules of lung Night sweats Reducible left inguinal hernia Historical Decreased appetite Loss of appetite for more than 2 weeks Procedure/Surgical History EGD - Esophagogastroduodenoscopy (02/17/2021), Colonoscopy (11/12/2019), Tonsillectomy and adenoidectomy. Medications alprazolam 0.5 mg Tab, 0.5 mg= 1 tab(s), Oral, Daily escitalopram 20 mg Tab, Oral, Daily Levsin 0.125 mg SL Tab, 0.125 mg= 1 tab(s), Oral, BID lovastatin 40 mg Tab, 40 mg= 1 tab(s), Oral, Daily traZODONE 50 mg Tab, Oral, BID Allergies No Known Allergies Social History Alcohol - Denies Alcohol Use, 06/20/2023 Substance Abuse - Denies Substance Abuse, 06/20/2023 Tobacco Former smoker, quit more than 30 days ago Tobacco Use:. Never Smokeless Tobacco Use:. Cigarettes, 0.5 per day. Started age 18.0 Years. Stopped age 57 Years. [facility] (more content not included)... [facility] Comment on above: Result Comment: Elec tronically Signed By: JEREMY PATEL, Semaj Ford\cherise\Date and Time Signed: 06/20/23 19:14 EST Evaluation note 10-13-2021 Note Date & Type Note Facility 10-13-2021 Evaluation note Encounter Date Diagnosis Assessment Notes Oct, Exocrine pancreatic insufficiency (ICD-10 - K86.81) [facility]TAIN [facility] RECORDS FROM [facility] Oct, Upper abdominal pain (ICD-10 - R10.10) Oct, Irritable bowel syndrome with diarrhea (ICD-10 - K58.0) Oct, Other STOP OMEPRAZOLE [employer] Other Hospital Discharge instructions 07-08-2021 Note Date & Type Note Facility 07-08-2021 Hospital Discharg e instructions Follow Up Care 07/08/2021 15:18:35 With:GAGE PATEL, PATRICIO Swann, [facility] Address: [facility] [address] [place] [address]- When:4 weeks [facility] Evaluation + Plan note 05-21-2021 Laboratory Note Date & Type Note Facility 05-21-2021 Evaluation + Plan note Future Scheduled TestsPancreatic Elastase, Fecal 05/21/21Vitamin D 25 Hydroxy 07/08/21 [facility] Evaluation + Plan note Laboratory Note Date & Type Note Facility Evaluation + Plan note Future Appointments Appointment Date:12/29/2021 08:30:00 AM Scheduled Provider:Hue ALMONTE MD [facility] Appointment Type:[facility] Follow Up Future Scheduled TestsPancreatic Elastase, Fecal 05/21/21Vitamin D 25 Hydroxy 07/08/21 [facility] Evaluation note Note Date & Type Note Facility Evaluation note No Information [facility] [employer] Other History general Narrative - Reported Note Date & Type Note Facility History general Narrative - Reported Type Medical History stating Medical History GERD Medical History anxiety/depression Surgical History tonsillectomy Surgical History finger surgery-wood removed [facility] [employer] Other Hospital course Narrative Note Date & Type Note Facility Hospital course Narrative No data available for this section [facility] Hospital Discharge instructions Note Date & Type Note Facility Hospital Discharge instructions No data available for this section [facility] Progress note Note Date & Type Note Facility Progress note No data available for this section [facility] Summary Purpose Family History No Family History Records FoundNo Family History Records FoundNo Family History Records Found Advance Directives No Advanced Directives Records FoundNo Advanced Directives Records FoundNo Advanced Directives Records Found Additional Source Comments (unrecognized sect ion and content) No Status Records FoundNo Status Records FoundNo Status Records Found INFORMATION SOURCE (unrecogn ized section and content) DATE CREATED AUTHOR 10/24/2021 [facility] DATE CREATED AUTHOR AUTHOR'S ORGANIZ ATION 04/16/2022 [facility] DATE CREATED AUTHOR AUTHOR'S ORGANIZ ATION 06/23/2023 [facility] REASON FOR VISIT (unrecogniz ed section and content) [employer] denialPATIENT HERE AT THE REQUEST OF DR BAIN FOR EXOCRINE PANCREATIC INSUFFICIENCYClinical Acute IllnessREFILL Care Team (unrecognized sect ion and content) Personnel Name: DON KATZ CNP Address: [address] [place] [address] FOR RECORDS PERTAINING TO PATIENTS WHO ARE OR HAVE BEEN ENROLLED IN A CHEMICAL DEPENDENCY/SUBSTANCEABUSE PROGRAM, SOME INFORMATION MAY BE OMITTED. This clinical summary was aggregated from multiple sources. Caution should be exercised in using it in the provision of clinical care. This summary normalizes information from multiple sources, and as a consequence, information in this document may materially change the coding, format and clinical context of patient data. In addition, data may be omitted in some cases. CLINICAL DECISIONS SHOULD BE BASED ON THE PRIMARY CLINICAL RECORDS. [facility] [employer] [facility]. provides no warranty or guarantee of the accuracy or completeness of information in this document.
== END 2023-06-28 11:02 | disposition home or self-care (01) ==
LOC: PST 11:01
PROVIDERS: PCP Nurse Practitioner Family; Visit Provider Surgery
DX: Z01.810 Encounter for preprocedural cardiovascular examination (principal); K40.90 Unilateral inguinal hernia, without obstruction or gangrene, not specified as recurrent
CPT/HCPCS: 93005

== ENCOUNTER 2023-07-03 07:49 | Outpatient (OUT) | payer MEDICARE, OTHER, SELFPAY ==
--- OUTSIDE RECORDS SUMMARY | 2023-07-03 07:52 | XMS_ITS | CCD ---
Author Name Unknown Address [address] [place] [address] Organization [facility] Care Team Providers Care Mule Spinner Name Role Phone DON KATZ Primary Care Physician [phone] Kurt Cooper Unavailable DON KATZ Admitting Unavailable [...] Primary Care Unavailable Semaj LUNA Attending Unavailable STERLING, DAKOTAH OCHOA S Referring Unavailable Medications Current Medications Medication Drug Class(es) Dates Sig (Normalized) Sig (Original) ALPRAZolam 0.5 mg oral tablet (6 sources) Benzodiazepine Start: 01-29-2021 take 1 tablet by mouth once daily alprazolam 0.5 mg Tab 0.5 mg = 1 tab(s), Oral, Daily, Refills(s) 0 Start Date: 01/29/21 Status: Ordered amylase 312793 unt / lipase 31273 unt / protease 336158 unt delayed release oral capsule (4 sources) take 1 capsule by mouth three to four times daily Zenpep [id number] UNIT 1 CAPSULE Orally 3-4 TIMES A [...] 11/26/20 Status: [facility]four [facility] traZODone HCl 50 MG [...] Start: 01-29-2021 take 1 capsule by mo [facility] once daily venlafaxine 75 mg Cap-ER 75 [...] 01-10-2022 Episodic Other aftercare (1 source) Other intermediate manager (current) drug therapy; Translations: [OTH ASSISTED CURRENT DRUG THERAPY] Onset: 10-18-2021 Episodic Other [...] Test Name Value Interpretation Reference Range Facility ECG 12-Leadon 06-29-2023 ECG 12-Lead [id number]#1.00TIFF Normal [facility] ECG 12-Leadon 06-28-2023 ECG 12-Lead [id number]#1.00TIFF Normal [facility] Consent for Procedure/Surger yon 06-22-2023 Consent for Procedure/Surgery [id number]#1.00TIFF Normal [facility] Ambulatory Visit Summaryon 0 06-20-2023 Ambulatory Visit [...] for choosing us for your care. Normal [facility] Facesheeton 06-20-2023 Facesheet [id number]#1.00TIFF [facility] Physician Referralon 024 Physician Referral [id number]#1.00TIFF Normal [facility] CT LUNG CANCER SCREENINGon 06-13-2021 CT LUNG [...] BRAVO KHAN Date: 2022-04-13 06:42 Normal [facility] INSULINon 01-10-2022 Insulin 15.8 uIU/mL Normal 2.6-24.9 [facility] Comment on above: Performed By: #### I NSULIN #### [facility] [address] [place], [place] [address] Dr. Yarelis Peñaloza CBC AUTO DIFFon 01-08-2022 BASO # 0.0 103/ul Normal 0.0-0.1 [facility] Comment on above: Performed By: #### C BC ####[facility] [address] [place] [id number] Peñaloza Basophils/100 WBC (Bld) 0.5 % Normal 0.2-2.0 [facility] Comment on above: Performed By: #### C BC ####[facility] [address] [place] [id number] Peñaloza EO # 0.1 103/ul Normal 0.0-0.7 [facility] Comment on above: Performed By: #### C BC ####[facility] [address] [place], [place] [address]IwSotero Peñaloza Eosinophils/100 WBC (Bld) 1.0 % Normal 0.9-7.0 [facility] Comment on above: Performed By: #### C BC ####[facility] [address] [place] [id number] Peñaloza Erythrocyte distribution width (RBC) [Ratio] 11.9 % Normal 11.0-15.0 [facility] Comment on above: Performed By: #### C BC ####[facility] [address] [place] [address]Dr. Yarelis Peñaloza Hematocrit (Bld) [Volume fraction] 42.5 % Normal 42.0-54.0 [facility] Comment on above: Performed By: #### C BC ####[facility] [address] [place] [address]Dr. Staceyandrew Peñaloza Hemoglobin (Bld) [Mass/Vol] 14.5 g/dL Normal 14.0-18.0 [facility] Comment on above: Performed By: #### C BC ####[facility] [address] [place], [place] [address]Dr. Yarelis Peñaloza IG # 0.04 10e3/ul Critically high 0.00-0.03 [facility] Comment on above: Performed By: #### C BC ####[facility] [address] [place], [place] [address]Dr. Yarelis Peñaloza IG % 0.5 % Normal 0.0-0.5 [facility] Comment on above: Performed By: #### C BC ####[facility] [address] [place], [place] [address]Dr. Yarelis Peñaloza LYMPH # 1.8 103/ul Normal 1.2-3.8 [facility] Comment on above: Performed By: #### C BC ####[facility] [address] [place], [place] [address]DrSotero Peñaloza Lymphocytes/100 WBC (Bld) 20.7 % Normal 20.5-60.0 [facility] Comment on above: Performed By: #### C BC ####[facility] [address] [place], [place] [address]DrSotero Peñaloza MANUAL DIFF REQ NO Normal [facility] Comment on above: Performed By: #### C BC ####[facility] [address] [place], [place] [address]DrSotero Peñaloza MCH (RBC) [Entitic mass] 32.5 pg Normal 25.9-34.0 [facility] Comment on above: Performed By: #### C BC ####[facility] [address] [place] [id number]. Yarelis Jh MCHC (RBC) [Mass/Vol] 34.1 g/dL Normal 29.9-35.2 [facility] Comment on above: Performed By: #### C BC ####[facility] [address] [place] [id number]. Staceyandrew Peñaloza MCV (RBC) [Entitic vol] 95.3 fL Critically high 80.0-94.0 [facility] Comment on above: Performed By: #### C BC ####[facility] [address] [place], [place] [address]Dr. Yarelis Peñaloza MONO # 0.6 103/ul Normal 0.3-0.8 [facility] Comment on above: Performed By: #### C BC ####[facility] [address] [place], [place] [address]Dr. Yarelis Peñaloza Monocytes/100 WBC (Bld) 7.1 % Normal 1.7-12.0 [facility] Comment on above: Performed By: #### C BC ####[facility] [address] [place], [place] [address]Dr. Yarelis Jh NEUT # 6.1 103/ul Normal 1.4-6.5 [facility] Comment on above: Performed By: #### C BC ####[facility] [address] [place], [place] [address]Dr. Yarelsi Peñaloza Neutrophils/100 WBC (Bld) 70.2 % Normal 43.0-75.0 [facility] Comment on above: Performed By: #### C BC ####[facility] [address] [place], [place] [address]Dr. Yarelis Peñaloza Platelet mean volume (Bld) [Entitic vol] 9.8 fL Normal 9.5-13.5 [facility] Comment on above: Performed By: #### C BC ####[facility] [address] [place], [place] [address]Dr. Yarelis Peñaloza PLT 241 103/ul Normal 150-450 [facility] Comment on above: Performed By: #### C BC ####[facility] [address] [place], [place] [address]AlSotero Peñaloza RBC 4.46 106/ul Critically low 4.70-6.10 [facility] Comment on above: Performed By: #### C BC ####[facility] [address] [place], [place] [address]OzSotero Peñaloza WBC 8.7 103/ul Normal 4.0-11.0 [facility] Comment on above: Performed By: #### C BC ####[facility] [address] [place], [place] [address]AwSotero Peñaloza GLYCOHEMOGLOBIN A1Con 2021 ADA RECOMMENDATION SEE BELOW Normal [facility] Comment on above: Result Comment: ADA RECOMMENDED LIMIT 4.0 - 6.0 ADA THERAPEUTIC TARGET < 7.0 ACTION SUGGESTED > 7.0 Performed By: #### A 1C #### [facility] [address] [place] [address] [address] Yarelis Peñaloza Glucose [Mass/Vol] 108 mg/dL Normal [facility] Comment on above: Performed By: #### A 1C #### [facility] [address] [place] [address] [address] Yarelis Peñaloza HbA1c (Bld) [Mass fraction] 5.4 % Normal 4.5-6.2 [facility] Comment on above: Performed By: #### A 1C #### [facility] [address] [place] [address] [address] Yarelis Peñaloza LIPID PROFILEon 01-08-2022 CHOL-HDL RATIO NORM SEE BELOW Normal [facility] Comment on above: Result Comment: 3.3 - 4.4 LOW RISK 4.4 - 7.1 AVERAGE RISK 7.1 - 11.0 MODERATE RISK >11.0 HIGH RISK Performed By: #### L IPID, CMP, URIC #### [facility] [address] [place] [address] [address] Yarelis Peñaloza Cholesterol [Mass/Vol] 174 mg/dL Normal <=200 [facility] Comment on above: Performed By: #### L IPID, CMP, URIC #### [facility] [address] [place] [address] [address] Yarelis Peñaloza Cholesterol in HDL [Mass/Vol] 38 mg/dL Critically low 40-60 [facility] Comment on above: Performed By: #### L IPID, CMP, URIC #### [facility] [address] [place] [address] [address] Yarelis Peñaloza Cholesterol in LDL [Mass/Vol] 111.4 mg/dL Normal [facility] Comment on above: Performed By: #### L IPID, CMP, URIC #### [facility] [address] [place] [address] [address] Yarelis Peñaloza Cholesterol.total/ Cholesterol in HDL [Mass ratio] 4.6 {ratio} Normal [facility] Comment on above: Performed By: #### L IPID, CMP, URIC #### [facility] [address] [place] [address] [address] Yarelis Peñaloza HDL NORMAL > or = 60 mg/dl - LO W CARDIOVASCULAR RISK <40 mg/dl - HIGH CARDIOVASCULAR RISK Normal [facility] Comment on above: Performed By: #### L IPID, CMP, URIC #### [facility] [address] [place] [address] [address] Yarelis Peñaloza LDL CALC NORMAL SEE BELOW Normal [facility] Comment on above: Result Comment: <100 mg/dl OPTIMAL 100 - 129 mg/dl NEAR OR ABOVE OPTIMAL 130 - 159 mg/dl BORDERLINE HIGH 160 - 189 mg/dl HIGH >190 mg/dl VERY HIGH Performed By: #### L IPID, CMP, URIC #### [facility] [address] [place] [address] [address] Yarelis Peñaloza Triglyceride [Mass/Vol] 123 mg/dL Normal <=150 [facility] Comment on above: Performed By: #### L IPID, CMP, URIC #### [facility] [address] [address] [address] Yarelis Peñaloza VLDL CALC 24.6 mg/dL Normal [facility] Comment on above: Performed By: #### L IPID, CMP, URIC #### [facility] [address] [address] [address] Yarelis Peñaloza PROF 14(COMP METB)on 022 Albumin [Mass/Vol] 3.8 g/dL Normal 3.4-5.0 [facility] Comment on above: Performed By: #### L IPID, CMP, URIC #### [facility] [address] [address] [address] Yarelis Peñaloza Albumin/Globulin [Mass ratio] 1.2 {ratio} Normal [facility] Comment on above: Performed By: #### L IPID, CMP, URIC #### [facility] [address] [place] [address] [address] Yarelis Peñaloza ALP [Catalytic activity/Vol] 67 U/L Normal 46-116 [facility] Comment on above: Performed By: #### L IPID, CMP, URIC #### [facility] [address] [address] [address] Yarelis Peñaloza ALT [Catalytic activity/Vol] 14 U/L Critically low 16-63 [facility] Comment on above: Performed By: #### L IPID, CMP, URIC #### [facility] [address] [address] [address] Yarelis Peñaloza Anion gap [Moles/Vol] 12.7 mmol/L Normal [facility] Comment on above: Performed By: #### L IPID, CMP, URIC #### [facility] [address] [address] [address] Yarelis Peñaloza AST [Catalytic activity/Vol] 11 U/L Critically low 15-37 [facility] Comment on above: Performed By: #### L IPID, CMP, URIC #### [facility] [address] [address] [address] Yarelis Peñaloza Bilirubin [Mass/Vol] 0.7 mg/dL Normal 0.2-1.0 [facility] Comment on above: Performed By: #### L IPID, CMP, URIC #### [facility] [address] [place] [address] [address] Yarelis Peñaloza Calcium [Mass/Vol] 8.6 mg/dL Normal 8.5-10.1 [facility] Comment on above: Performed By: #### L IPID, CMP, URIC #### [facility] [address] [address] [address] Yarelis Peñaloza Chloride [Moles/Vol] 103 mmol/L Normal 98-107 [facility] Comment on above: Performed By: #### L IPID, CMP, URIC #### [facility] [address] [place] [address] [address] Yarelis Peñaloza CO2 [Moles/Vol] 26.9 mmol/L Normal 21.0-32.0 [facility] Comment on above: Performed By: #### L IPID, CMP, URIC #### [facility] [address] [place] [address] [address] Yarelis Peñaloza Creatinine [Mass/Vol] 0.97 mg/dL Normal 0.70-1.30 [facility] Comment on above: Performed By: #### L IPID, CMP, URIC #### [facility] [address] [place] [address] Dr. Yarelis Peñaloza EGFR-AF GIBRALTARIAN >60 Normal >=60 [facility] Comment on above: Performed By: #### L IPID, CMP, URIC #### [facility] [address] [place] [address] Dr. Yarelis Peñaloza EGFR-NON AF GIBRALTARIAN >60 Normal >=60 [facility] Comment on above: Performed By: #### L IPID, CMP, URIC #### [facility] [address] [place] [address] [address] Yarelis Peñaloza Globulin (S) [Mass/Vol] 3.2 g/dL Normal [facility] Comment on above: Performed By: #### L IPID, CMP, URIC #### [facility] [address] [place] [address] [address] Yarelis Peñaloza Glucose [Mass/Vol] 102 mg/dL Normal 74-106 [facility] Comment on above: Performed By: #### L IPID, CMP, URIC #### [facility] [address] [place] [address] Dr. Yarelis Peñaloza Potassium [Moles/Vol] 3.6 mmol/L Normal 3.5-5.1 [facility] Comment on above: Performed By: #### L IPID, CMP, URIC #### [facility] [address] [place] [address] [address] Yarelis Peñaloza Protein [Mass/Vol] 7.0 g/dL Normal 6.4-8.2 [facility] Comment on above: Performed By: #### L IPID, CMP, URIC #### [facility] [address] [place] [address] [address] Yarelis Peñaloza Sodium [Moles/Vol] 139 mmol/L Normal 136-145 [facility] Comment on above: Performed By: #### L IPID, CMP, URIC #### [facility] [address] [place] [address] Dr. Yarelis Peñaloza Urea nitrogen [Mass/Vol] 17.0 mg/dL Normal 7.0-18.0 [facility] Comment on above: Performed By: #### L IPID, CMP, URIC #### [facility] [address] [place] [address] Dr. Yarelis Peñaloza Urea nitrogen/Creatinin e [Mass ratio] 17.5 mg/mg Normal [facility] Comment on above: Performed By: #### L IPID, CMP, URIC #### [facility] [address] [place] [address] Dr. Yarelis Peñaloza URIC ACID SERUMon 01-08-2022 Urate [Mass/Vol] 4.8 mg/dL Normal 3.5-7.2 [facility] Comment on above: Performed By: #### L IPID, CMP, URIC #### [facility] [address] [place] [address] Dr. Yarelis Peñaloza [place] hepatobiliary w pharmon 0 10-21-2021 [place] [address] Nuclear Medicine Report Signed Patient: Armando Zhu MR#: [id number] 4 : 1955 Acct:[id number] Age/Sex: 65 / M ADM Date: 10/21/21 Loc: [place] Room: Type: [facility] Attending Dr: Kurt Cooper DO Ordering Provider: Kurt Cooper Jr, DO Date of Service: 10/21/21 NM/NM hepatobiliary w pharm: Upper abdominal pain Copies to: DO Marlo Hollis Jr, II, MD Pamela Sue Cramer, [facility] hepatobiliary w pharm 10/21/2021 8:45 AM SIGN [...] Marlo Payton M.D.10/21/2021 2:05 PM Dictation Location: [place] [address] Transcribed By: [facility] 10/21/21 140 Dictated By: Marlo Payton II, MD 10/21/211401 Signed By: 10/21/21 140 [facility] XR HAND RT MIN 3Von 10-11-19 XR [...] by: RHYS THAO Date: 2021-10-10 13:44 Normal [facility] XR CSPINE MIN 4 VIEWSon 07-13 [...] by: KURT KEEN Date: 2021-07-26 14:30 Normal [facility] Vital Signs Date Time Vital Sign Value Performing Clinician Dina william 10-13-2021 14:30-0400 Body height 177.8 cm Kurt Cooper Other adjust Other 10-13-2021 14:30-0400 Body mass index (BMI) [Ratio] 24.1 kg/m2 Kurt Cooper Other adjust Other 10-13-2021 14:30-0400 Body weight 76.2 kg Kurt Cooper Other adjust Other 10-13-2021 14:30-0400 Diastolic blood pressure 74 mm[Hg] Kurt Cooper Other adjust Other 10-13-2021 14:30-0400 Systolic blood pressure 136 mm[Hg] Kurt Cooper Other adjust Other 10-07-2021 13:26-0400 Diastolic blood pressure 67 mm[Hg] Merku [facility] 10-07-2021 13:26-0400 Systolic blood pressure 113 mm[Hg] Merku [facility] Encounters Encounter Date Encounter Type Care Provider Facility Start: 06-20-2023 End: 06-21-2023 ambulatory Semaj LUNA Facility:[facility] Start: 04-12-2022 End: 04-13-[address] SUSAN BAIN Facility:[facility] Start: 01-08-2022 End: 01-09-2022 ambulatory DON KATZ Facility:[facility] Start: 12-29-2021 End: 12-29-2021 Patient encounter procedure Swann SALAM [facility] Start: 12-01-2021 End: 12-01-2021 ambulatory Kurt Cooper Other adjust Other Start: 12-01-2021 Telephone encounter Kurt Cooper [facility] Start: 11-09-2021 End: 11-09-2021 ambulatory Kurt Cooper Other adjust Other Start: 11-09-2021 Telephone encounter Kurt Cooper [facility] Start: 10-28-2021 End: 10-28-2021 ambulatory Kurt Cooper Other adjust Other Start: 10-28-2021 Telephone encounter Kurt Cooper [facility] Start: 10-13-2021 End: 10-13-2021 ambulatory Kurt Kenneth Other adjust Other Start: 10-13-2021 Office outpatient ne w 45 minutes Kurt Cooper [facility] Start: 10-10-2021 End: 10-10-2021 ambulatory TWILA FALLON Facility:[facility] Start: 10-07-2021 End: 10-07-2021 Patient encounter procedure Swann SALAM [facility] Start: 10-06-2021 ambulatory DON KATZ Facility: [facility] Start: 07-29-2021 End: 08-18-2021 ambulatory DON KATZ Facility:[facility] Start: 07-26-2021 End: 07-27-2021 ambulatory DON KATZ Facility:[facility] Procedures Date Procedure Procedure Detail Performing Clinician Start: 01-08-2022 PSA screening DON DAVID Comment on above: Performed By: #### P [facility] #### [facility] [address] [place] [address] Dr. Yarelis Peñaloza Start: 02-17-2021 Esophagogastroduodenoscopy Hue ALMONTE Start: 11-12-2019 Colonoscopy Swanneli Camilo Tonsillectomy and adenoidectomy Hue HERNANDEZAM Immunizations Immunization Date Immunization Notes Care Provider Fa cility 03-15-2021 influenza virus vaccine, unspecified formulation Swanneli ALMONTE [facility] Payers Date Payer Category Payer Medicare [id number] 2023 Unknown [id number] 1957 Self-pay 1957 Unknown [id number] 2. [id number] 1955 Unknown [id number] 2.16.84 [id number] 1955 Unknown [id number] 2.16.84 [id number] 1955 Unknown [id number] 2.16.84 [id number] 1957 Unknown [id number] 2.16.84 [id number] 1955 Unknown [id number] 2.16.84 [id number] 1955 Unknown [id number] 2.16.84 [id number] 1955 Unknown [id number] 2.16.8 [id number] Social History Date Type Detail Facility Start: 10-07-2021 Tobacco smoking status Ex-smoker (leonora ndjared) [facility] Tobacco smoking status Never Mitzi [facility] Sex Assigned At Male [facility] Clinical Note 06-20-2023 Note Date & Type Note Facility 06-20-2023 Note Chief Complaint consultation for left inguinal hernia HPI Staff 67 year old male presents on consultation from Pennie Katz for left inguinal hernia. Reports he noted [...] age 18.0 Years. Stopped age 57 Years[address] [facility] (more content not included)... [facility] Comment on above: Result Comment: Elec tronically Signed By: JEREMY PATEL, Semaj Ford\cherise\Date and Time Signed: 06/20/23 19:14 EST Evaluation note 10-13-2021 Note Date & Type Note Facility 10-13-2021 Evaluation note Encounter Date Diagnosis Assessment Notes Oct, Exocrine pancreatic insufficiency (ICD-10 - K86.81) OBTAIN ALL RECORDS FROM [facility] Oct, Upper abdominal pain (ICD-10 - R10.10) Oct, Irritable bowel syndrome with diarrhea (ICD-10 - K58.0) Oct, Other STOP OMEPRAZOLE adjust Other Hospital Discharge instructions 07-08-2021 Note Date & Type Note Facility 07-08-2021 Hospital Discharg e instructions Follow Up Care 07/08/2021 15:18:35 With:GAGE PATEL, PATRICIO Swann, [facility] Address: [facility] [place] [address]- When:4 weeks [facility] Evaluation + Plan note 05-21-2021 Laboratory Note Date & Type Note Facility 05-21-2021 Evaluation + Plan note Future Scheduled TestsPancreatic Elastase, Fecal 05/21/21Vitamin D 25 Hydroxy 07/08/21 [facility] Evaluation + Plan note Laboratory Note Date & Type Note Facility Evaluation + Plan note Future Appointments Appointment Date:12/29/2021 08:30:00 AM Scheduled Provider:Hue ALMONTE MD Location:[facility] Appointment Type:[facility] Follow Up Future Scheduled TestsPancreatic Elastase, Fecal 05/21/21Vitamin D 25 Hydroxy 07/08/21 [facility] Evaluation note Note Date & Type Note Facility Evaluation note No Information [facility] [employer] Other History general Narrative - Reported Note Date & Type Note Facility History general Narrative - Reported Type Medical History stating Medical History GERD Medical History anxiety/depression Surgical History tonsillectomy Surgical History finger surgery-wood removed [facility] [employer] Other Hospital course Narrative Note Date & Type Note Facility Hospital course Narrative No data available for this section [facility] Hospital Discharge instructions Note Date & Type Note Facility Hospital Discharge instructions No data available for this section [facility] Progress note Note Date & Type Note Facility Progress note No data available for this section [facility] Summary Purpose Family History No [...] and content) DATE CREATED AUTHOR 10/24/2021 [facility] DATE CREATED AUTHOR AUTHOR'S ORGANIZ ATION 04/16/2022 [facility] DATE CREATED AUTHOR AUTHOR'S ORGANIZ ATION 06/30/2023 [facility] REASON FOR VISIT (unrecogniz ed section and content) [employer] denialPATIENT HERE AT THE REQUEST OF DR BAIN FOR EXOCRINE PANCREATIC INSUFFICIENCYClinical Acute IllnessREFUNIVERSITY [facility] Care Team (unrecognized sect ion and content) Personnel Name: STERLING CLAIRE DON Divine Address[facility] [address] [facility] [place], [address] FOR RECORDS PERTAINING TO PATIENTS WHO ARE [...] BE BASED ON THE PRIMARY CLINICAL RECORDS. [employer] provides no warranty or guarantee of the accuracy or completeness of information in this document.
--- NOTE | 2023-07-03 08:17 | CA_ITS ---
[facility] Test Date: 2023-07-13 Pat Name: ARMANDO BROOKS Department: Room: - Gender: Male [employer]: : 1955 Requested By: ODN KATZ Order Number: [id number] Reading MD: KAREN ALFONSO Interpretive Statements Predominant rhythm is sinus with average rate of 56 bpm Tachycardia - max rate of 172 bpm (PSVT) - 5 episodes of PSVT w/ longest duration of 12 beats Bradycardia - min rate of 38 bpm, occurring during sleep - longest episode of 1h 33min 9sec with rates between 45-50 bpm Ventricular ectopy - 13 PVC 1 Blocked PAC Patient triggered eevents:none Impression: Predominant rhythm is sinus with average rate of 56 bpm Fastest rate of 172 bpm (PSVT) and slowest rate of 38 bpm 13 PVC 1 blocked PAC No atrial fibrillation No blocks or pauses Electronically Signed On 07-14-2023 6:57:07 EST by KAREN ALFONSO
== END 2023-07-03 07:50 | disposition home or self-care (01) ==
LOC: CARD 07:49
PROVIDERS: PCP Nurse Practitioner Family; Visit Provider Nurse Practitioner Family
DX: R94.31 Abnormal electrocardiogram [ECG] [EKG] (principal)
CPT/HCPCS: 93242

== ENCOUNTER 2023-07-06 08:08 | Outpatient (OUT) | payer MEDICARE, OTHER, SELFPAY ==
--- OUTSIDE RECORDS SUMMARY | 2023-07-06 08:11 | XMS_ITS | CCD ---
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 Phone DON KATZ Primary Care [...] Unavailable Semaj LUNA Attending Unavailable STERLING, DAKOTAH OCHAO S Referring Unavailable Medications Current Medications Medication Drug Class(es) Dates Sig (Normalized) Sig (Original) ALPRAZolam 0.5 mg oral tablet (6 sources) Benzodiazepine Start: 01-29-2021 take 1 tablet by mouth once daily alprazolam 0.5 mg Tab 0.5 mg = 1 tab(s), Oral, Daily, Refills(s) 0 Start Date: 01/29/21 Status: Ordered amylase 523882 unt / lipase 13336 unt / protease 295794 unt delayed release oral capsule (4 sources) take 1 capsule by mouth three to four times daily Zenpep [id number] UNIT 1 CAPSULE Orally 3-4 TIMES A [...] 11/26/20 Status: [facility]-four [facility] traZODone HCl [...] Start: 01-29-2021 take 1 capsule by mo [facility] once daily venlafaxine 75 mg Cap-ER 75 [...] 01-10-2022 Episodic Other aftercare (1 source) 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 Normal [facility] Facesheeton 06-20-2023 Facesheet [id number]#1.00TIFF [facility] Physician Referralon 024 Physician Referral [id number]#1.00TIFF Normal [facility] CT LUNG CANCER SCREENINGon 06-13-2021 CT [...] BRAVO KHAN Date: 2022-04-13 06:42 Normal [facility] INSULINon 01-10-2022 Insulin 15.8 uIU/mL Normal 2.6-24.9 [facility] Comment on above: Performed By: #### I NSULIN #### [facility] Laboratory [address] [place], [place] [address] Dr. Yarelis Peñaloza CBC AUTO DIFFon 01-08-2022 BASO # 0.0 103/ul Normal 0.0-0.1 [facility] Comment on above: Performed By: #### C BC ####[facility] [address] [place] [address]DrSotero Peñaloza Basophils/100 WBC (Bld) 0.5 % Normal 0.2-2.0 [facility] Comment on above: Performed By: #### C BC ####[facility] [address] [place] [address]DrSotero Peñaloza EO # 0.1 103/ul Normal 0.0-0.7 [facility] Comment on above: Performed By: #### C BC ####[facility] [address] [place], [place] [address]DqSotero Peñaloza Eosinophils/100 WBC (Bld) 1.0 % Normal 0.9-7.0 [facility] Comment on above: Performed By: #### C BC ####[facility] [address] [place] [id number] Peñaloza Erythrocyte distribution width (RBC) [Ratio] 11.9 % Normal 11.0-15.0 [facility] Comment on above: Performed By: #### C BC ####[facility] [address] [place] [address]Dr. Yarelis Peñaloza Hematocrit (Bld) [Volume fraction] 42.5 % Normal 42.0-54.0 [facility] Comment on above: Performed By: #### C BC ####[facility] [address] [place] [address]Dr. Staceyandrew Peñaloza Hemoglobin (Bld) [Mass/Vol] 14.5 g/dL Normal 14.0-18.0 [facility] Comment on above: Performed By: #### C BC ####[facility] [address] [place], [place] [address]Dr. Yarelis Peñaloza IG # 0.04 10e3/ul Critically high 0.00-0.03 [facility] Comment on above: Performed By: #### C BC ####[facility] [address] [place], [place] [address]Dr. Yarelis Peñaloza IG % 0.5 % Normal 0.0-0.5 [facility] Comment on above: Performed By: #### C BC ####[facility] [address] [place], [place] [address]Dr. Yarelis Peñaloza LYMPH # 1.8 103/ul Normal 1.2-3.8 [facility] Comment on above: Performed By: #### C BC ####[facility] [address] [place], [place] [address]DrSotero Peñaloza Lymphocytes/100 WBC (Bld) 20.7 % Normal 20.5-60.0 [facility] Comment on above: Performed By: #### C BC ####[facility] [address] [place], [place] [address]DrSotero Peñaloza MANUAL DIFF REQ NO Normal [facility] Comment on above: Performed By: #### C BC ####[facility] [address] [place], [place] [address]DrStoero Peñaloza MCH (RBC) [Entitic mass] 32.5 pg Normal 25.9-34.0 [facility] Comment on above: Performed By: #### C BC ####[facility] [address] [place] [address]Dr. Yarelis Jh MCHC (RBC) [Mass/Vol] 34.1 g/dL Normal 29.9-35.2 [facility] Comment on above: Performed By: #### C BC ####[facility] [address] [place] [address]Dr. Staceyandrew Peñaloza MCV (RBC) [Entitic vol] 95.3 fL Critically high 80.0-94.0 [facility] Comment on above: Performed By: #### C BC ####[facility] [address] [place], [place] [address]Dr. Yarelis Peñaloza MONO # 0.6 103/ul Normal 0.3-0.8 [facility] Comment on above: Performed By: #### C BC ####[facility] [address] [place], [place] [address]Dr. Yarelis Peñaloza Monocytes/100 WBC (Bld) 7.1 % Normal 1.7-12.0 [facility] Comment on above: Performed By: #### C BC ####[facility] [address] [place], [place] [address]Dr. Yarelis Jh NEUT # 6.1 103/ul Normal 1.4-6.5 [facility] Comment on above: Performed By: #### C BC ####[facility] [address] [place], [place] [address]Dr. Yarelis Peñaloza Neutrophils/100 WBC (Bld) 70.2 % Normal 43.0-75.0 [facility] Comment on above: Performed By: #### C BC ####[facility] [address] [place], [place] [address]Dr. Yarelis Peñaloza Platelet mean volume (Bld) [Entitic vol] 9.8 fL Normal 9.5-13.5 [facility] Comment on above: Performed By: #### C BC ####[facility] [address] [place], [place] [address]Dr. Yarelis Peñaloza PLT 241 103/ul Normal 150-450 [facility] Comment on above: Performed By: #### C BC ####[facility] [address] [place], [place] [address]DpSotero Peñaloza RBC 4.46 106/ul Critically low 4.70-6.10 [facility] Comment on above: Performed By: #### C BC ####[facility] [address] [place], [place] [address]WnSotero Peñaloza WBC 8.7 103/ul Normal 4.0-11.0 [facility] Comment on above: Performed By: #### C BC ####[facility] [address] [place], [place] [address]DrSotero Peñaloza GLYCOHEMOGLOBIN A1Con 2021 ADA RECOMMENDATION SEE BELOW Normal [facility] Comment on above: Result Comment: ADA RECOMMENDED LIMIT 4.0 - 6.0 ADA THERAPEUTIC TARGET < 7.0 ACTION SUGGESTED > 7.0 Performed By: #### A 1C #### [facility] [address] [place] [address] [address] Yarelis Peñaloza Glucose [Mass/Vol] 108 mg/dL Normal [facility] Comment on above: Performed By: #### A 1C #### [facility] [address] [place] [address] [address] Yarelis Peñaloza HbA1c (Bld) [Mass fraction] 5.4 % Normal 4.5-6.2 [facility] Comment on above: Performed By: #### A 1C #### [facility] [address] [place] [address] [address] Yarelis Peñaloza LIPID PROFILEon 01-08-2022 CHOL-HDL RATIO NORM SEE BELOW Normal [facility] Comment on above: Result Comment: 3.3 - 4.4 LOW RISK 4.4 - 7.1 AVERAGE RISK 7.1 - 11.0 MODERATE RISK >11.0 HIGH RISK Performed By: #### L IPID, CMP, URIC #### [facility] [address] [place] [address] [address] Yarelis Peñaloza Cholesterol [Mass/Vol] 174 mg/dL Normal <=200 [facility] Comment on above: Performed By: #### L IPID, CMP, URIC #### [facility] [address] [place] [address] [address] Yarelis Peñaloza Cholesterol in HDL [Mass/Vol] 38 mg/dL Critically low 40-60 [facility] Comment on above: Performed By: #### L IPID, CMP, URIC #### [facility] [address] [place] [address] [address] Yarelis Peñaloza Cholesterol in LDL [Mass/Vol] 111.4 mg/dL Normal [facility] Comment on above: Performed By: #### L IPID, CMP, URIC #### [facility] [address] [address] [address] Yarelis Peñaloza Cholesterol.total/ Cholesterol in HDL [Mass ratio] 4.6 {ratio} Normal [facility] Comment on above: Performed By: #### L IPID, CMP, URIC #### [facility] [address] [address] [address] Yarelis Peñaloza HDL NORMAL > or = 60 mg/dl - LO W CARDIOVASCULAR RISK <40 mg/dl - HIGH CARDIOVASCULAR RISK Normal [facility] Comment on above: Performed By: #### L IPID, CMP, URIC #### [facility] [address] [address] [address] Yarelis Peñaloza LDL CALC NORMAL SEE BELOW Normal [facility] Comment on above: Result Comment: <100 mg/dl OPTIMAL 100 - 129 mg/dl NEAR OR ABOVE OPTIMAL 130 - 159 mg/dl BORDERLINE HIGH 160 - 189 mg/dl HIGH >190 mg/dl VERY HIGH Performed By: #### L IPID, CMP, URIC #### [facility] [address] [address] [address] Yarelis Peñaloza Triglyceride [Mass/Vol] 123 mg/dL Normal <=150 [facility] Comment on above: Performed By: #### L IPID, CMP, URIC #### [facility] [address] [address] [address] Yarelis Peñaloza VLDL CALC 24.6 mg/dL Normal [facility] Comment on above: Performed By: #### L IPID, CMP, URIC #### [facility] [address] [address] [address] Yarelis Peñaloza PROF 14(COMP METB)on 022 Albumin [Mass/Vol] 3.8 g/dL Normal 3.4-5.0 [facility] Comment on above: Performed By: #### L IPID, CMP, URIC #### [facility] [address] [address] [address] Yarelis Peñaloza Albumin/Globulin [Mass ratio] 1.2 {ratio} Normal [facility] Comment on above: Performed By: #### L IPID, CMP, URIC #### [facility] [address] [address] [address] Yarelis Peñaloza ALP [Catalytic activity/Vol] 67 U/L Normal 46-116 [facility] Comment on above: Performed By: #### L IPID, CMP, URIC #### [facility] [address] [address] [address] Yarelis Peñaloza ALT [Catalytic activity/Vol] 14 U/L Critically low 16-63 [facility] Comment on above: Performed By: #### L IPID, CMP, URIC #### [facility] [address] [address] [address] Yarelis Peñaloza Anion gap [Moles/Vol] 12.7 mmol/L Normal [facility] Comment on above: Performed By: #### L IPID, CMP, URIC #### [facility] [address] [address] [address] Yarelis Peñaloza AST [Catalytic activity/Vol] 11 U/L Critically low 15-37 [facility] Comment on above: Performed By: #### L IPID, CMP, URIC #### [facility] [address] [address] [address] Yarelis Peñaloza Bilirubin [Mass/Vol] 0.7 mg/dL Normal 0.2-1.0 [facility] Comment on above: Performed By: #### L IPID, CMP, URIC #### [facility] [address] [address] [address] Yarelis Peñaloza Calcium [Mass/Vol] 8.6 mg/dL Normal 8.5-10.1 [facility] Comment on above: Performed By: #### L IPID, CMP, URIC #### [facility] [address] [place] [address] [address] Yarelis Peñaloza Chloride [Moles/Vol] 103 mmol/L Normal 98-107 [facility] Comment on above: Performed By: #### L IPID, CMP, URIC #### [facility] [address] [address] [address] Yarelis Peñaloza CO2 [Moles/Vol] 26.9 mmol/L Normal 21.0-32.0 [facility] Comment on above: Performed By: #### L IPID, CMP, URIC #### [facility] [address] [address] [address] Yarelis Peñaloza Creatinine [Mass/Vol] 0.97 mg/dL Normal 0.70-1.30 [facility] Comment on above: Performed By: #### L IPID, CMP, URIC #### [facility] [address] [place] [address] Dr. Yarelis Peñaloza EGFR-AF TOGOLESE >60 Normal >=60 [facility] Comment on above: Performed By: #### L IPID, CMP, URIC #### [facility] [address] [place] [address] Dr. Yarelis Peñaloza EGFR-NON AF TOGOLESE >60 Normal >=60 [facility] Comment on above: Performed By: #### L IPID, CMP, URIC #### [facility] [address] [address] [address] Yarelis Peñaloza Globulin (S) [Mass/Vol] 3.2 g/dL Normal [facility] Comment on above: Performed By: #### L IPID, CMP, URIC #### [facility] [address] [address] [address] Yarelis Peñaloza Glucose [Mass/Vol] 102 mg/dL Normal 74-106 [facility] Comment on above: Performed By: #### L IPID, CMP, URIC #### [facility] [address] [place] [address] Dr. Yarelis Peñaloza Potassium [Moles/Vol] 3.6 mmol/L Normal 3.5-5.1 [facility] Comment on above: Performed By: #### L IPID, CMP, URIC #### [facility] [address] [place] [address] [address] Yarelis Peñaloza Protein [Mass/Vol] 7.0 g/dL Normal 6.4-8.2 [facility] Comment on above: Performed By: #### L IPID, CMP, URIC #### [facility] [address] [address] [address] Yarelis Peñaloza Sodium [Moles/Vol] 139 mmol/L Normal 136-145 [facility] Comment on above: Performed By: #### L IPID, CMP, URIC #### [facility] [address] [place] [address] Dr. Yarelis Peñaloza Urea nitrogen [Mass/Vol] 17.0 mg/dL Normal 7.0-18.0 [facility] Comment on above: Performed By: #### L IPID, CMP, URIC #### [facility] [address] [place] [address] Dr. Yarelis Peñaloza Urea nitrogen/Creatinin e [Mass ratio] 17.5 mg/mg Normal [facility] Comment on above: Performed By: #### L IPID, CMP, URIC #### [facility] [address] [place] [address] Dr. Yarelis Peñaloza URIC ACID SERUMon 01-08-2022 Urate [Mass/Vol] 4.8 mg/dL Normal 3.5-7.2 [facility] Comment on above: Performed By: #### L IPID, CMP, URIC #### [facility] [address] [place] [address] Dr. Yarelis Peñaloza [place] hepatobiliary w pharmon 0 10-21-2021 [place] [address] Nuclear Medicine Report Signed Patient: Armando Zhu MR#: [id number] 4 : 1955 Acct:[id number] Age/Sex: 65 / M ADM Date: 10/21/21 Loc: [place] Room: Type: [facility] Attending Dr: Kurt Cooper DO Ordering Provider: Kurt Cooper Jr, DO Date of Service: 10/21/21 [place] hepatobiliary w pharm: Upper abdominal pain Copies to: DO Marlo Hollis Jr, II, MD Pamela Sue Cramer, [facility] hepatobiliary w pharm 10/21/2021 8:45 AM [...] Marlo Payton M.D.10/21/2021 2:05 PM Dictation Location: [place] [address] Transcribed By: [facility] 10/21/21 140 Dictated By: Marlo Payton II, MD 10/21/211401 Signed By: 10/21/21 140 [facility] XR HAND RT MIN 3Von 10-11-19 [...] by: RHYS THAO Date: 2021-10-10 13:44 Normal [facility] XR CSPINE MIN 4 VIEWSon 07-13 [...] by: KURT KEEN Date: 2021-07-26 14:30 Normal [facility] Vital Signs Date Time Vital Sign Value Performing Clinician Dina william 10-13-2021 14:30-0400 Body height 177.8 cm Kurt Cooper Other [employer] Other 10-13-2021 14:30-0400 Body mass index (BMI) [Ratio] 24.1 kg/m2 Kurt Cooper Other [employer] Other 10-13-2021 14:30-0400 Body weight 76.2 kg Kurt Cooper Other [employer] Other 10-13-2021 14:30-0400 Diastolic blood pressure 74 mm[Hg] Kurt Cooper Other [employer] Other 10-13-2021 14:30-0400 Systolic blood pressure 136 mm[Hg] Kurt Cooper Other [employer] Other 10-07-2021 13:26-0400 Diastolic blood pressure 67 mm[Hg] [employer] [facility] 10-07-2021 13:26-0400 Systolic blood pressure 113 mm[Hg] [employer] [facility] Encounters Encounter Date Encounter Type Care Provider Facility Start: 06-20-2023 End: 06-21-2023 ambulatory Semaj LUNA Facility:[facility] Start: 04-12-2022 End: 04-13-[address] SUSAN BAIN Facility:[facility] Start: 01-08-2022 End: 01-09-2022 ambulatory DON KATZ Facility:[facility] Start: 12-29-2021 End: 12-29-2021 Patient encounter procedure Swann SALAM [facility] Start: 12-01-2021 End: 12-01-2021 ambulatory Kurt Cooper Other [employer] Other Start: 12-01-2021 Telephone encounter Kurt Cooper [facility] Start: 11-09-2021 End: 11-09-2021 ambulatory Kurt Cooper Other [employer] Other Start: 11-09-2021 Telephone encounter Kurt Cooper [facility] Start: 10-28-2021 End: 10-28-2021 ambulatory Kurt Cooper Other [employer] Other Start: 10-28-2021 Telephone encounter Kurt Cooper [facility] Start: 10-13-2021 End: 10-13-2021 ambulatory Kurt Kenneth Other [employer] Other Start: 10-13-2021 Office outpatient ne w 45 minutes Kurt Cooper [facility] Start: 10-10-2021 End: 10-10-2021 ambulatory TWILA FALLON Facility:[facility] Start: 10-07-2021 End: 10-07-2021 Patient encounter procedure Swann SALAM [facility] Start: 10-06-2021 ambulatory DON KATZ Facility: [facility] Start: 07-29-2021 End: 08-18-2021 ambulatory DON KATZ Facility:[facility] Start: 07-26-2021 End: 07-27-2021 ambulatory DON KATZ Facility:[facility] Procedures Date Procedure Procedure Detail Performing Clinician Start: 01-08-2022 PSA screening DON DAVID Comment on above: Performed By: #### [facility] #### [facility] [address] [place] [address] Dr. Yarelis Peñaloza Start: 02-17-2021 Esophagogastroduodenoscopy Hue ALMONTE Start: 11-12-2019 Colonoscopy Swannlei Camilo Tonsillectomy and adenoidectomy Hue HERNANDEZAM Immunizations Immunization Date Immunization Notes Care Provider Fa cility 03-15-2021 influenza virus vaccine, unspecified formulation Swanneli ALMONTE [facility] Payers Date Payer Category Payer Medicare [id number] 2023 Unknown [id number] 1957 Self-pay 1957 Unknown [id number] 2. [id number] 1955 Unknown [id number] 2.16.84 [id number] 1955 Unknown [id number] 2.16.84 [id number] 1955 Unknown [id number] 2.16.84 [id number] 1955 Unknown [id number] 2.16.84 [id number] 1955 Unknown [id number] 2.16.84 [id number] 1955 Unknown [id number] 2.16.84 [id number] 1955 Unknown [id number] 2.16.8 [id number] Social History Date Type Detail Facility Start: 10-07-2021 Tobacco smoking status Ex-smoker (leonora ndjared) [facility] Tobacco smoking status Never Mitzi [facility] Assigned At [facility] Clinical Note 06-20-2023 Note [...] age 18.0 Years. Stopped age 57 Years. [facility] (more content not included)... 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 [place] [address]- When:4 weeks [facility] Evaluation + Plan note 05-21-2021 Laboratory Note Date & Type Note Facility 05-21-2021 Evaluation + Plan note Future Scheduled TestsPancreatic Elastase, Fecal 05/21/21Vitamin D 25 Hydroxy 07/08/21 [facility] Evaluation + Plan note Laboratory Note Date & Type Note Facility Evaluation + Plan note Future Appointments Appointment Date:12/29/2021 08:30:00 AM Scheduled Provider:Hue ALMONTE MD Location:[facility] [place] [facility] Appointment Type:[facility] Follow Up Future Scheduled TestsPancreatic Elastase, Fecal 05/21/21Vitamin D 25 Hydroxy 07/08/21 [facility] Evaluation note Note Date & Type Note Facility Evaluation note No Information [facility] [employer] [facility] Other History general Narrative - Reported Note Date & Type Note Facility History general Narrative - Reported Type Medical History stating Medical History GERD Medical History anxiety/depression Surgical History tonsillectomy Surgical History finger surgery-wood removed [facility] [email or web address] Other Hospital course Narrative Note Date & Type Note Facility Hospital course Narrative No data available for this section [facility] Hospital Discharge instructions Note Date & Type Note Facility Hospital Discharge instructions No data available for this section [facility] Progress note Note Date & Type Note Facility Progress note No data available for this section [facility] Summary Purpose Family History [...] and content) DATE CREATED AUTHOR 10/24/2021 [facility] DATE CREATED AUTHOR AUTHOR'S ORGANIZ ATION 04/16/2022 [facility] DATE CREATED AUTHOR AUTHOR'S ORGANIZ ATION 06/30/2023 [facility] REASON FOR VISIT (unrecogniz ed section and content) [employer] denialPATIENT HERE AT THE REQUEST OF DR BAIN FOR EXOCRINE PANCREATIC INSUFFICIENCYClinical Acute IllnessREFBLUFFTON H[facility] Care Team (unrecognized sect ion and content) Personnel Name: STERLING CLAIRE DON Divine Address: [address] [place], [address] FOR RECORDS PERTAINING TO PATIENTS WHO [...] BE BASED ON THE PRIMARY CLINICAL RECORDS. [employer] provides no warranty or guarantee of the accuracy or completeness of information in this document.
--- NOTE | 2023-07-06 09:09 | CA_ITS ---
Patient Name: ARMANDO BROOKS MR#: [id number] : 1955 Exam Date: 07/06/2023 Ordering Doctor: DON KATZ CNP ECHOCARDIOGRAM REPORT PROCEDURE: CA ECHO DOPPLER COMPLETE INDICATIONS: Abnormal EKG COMPARISON: None. DESCRIPTION: COMPLETE ECHOCARDIOGRAM Real-time transthoracic echocardiography with 2D, M-mode, spectral and color flow Doppler performed. QUALITY: Technical quality was good. LEFT VENTRICLE: Normal chamber size. Normal left ventricular wall thickness. Global left ventricular systolic function is normal. LV EF: Visual estimation of left ventricular ejection fraction is 60-65% DIASTOLIC: Normal diastolic function. ATRIAL SEPTUM: LEFT ATRIUM: Normal chamber size. RIGHT ATRIUM: Mild dilatation. RIGHT VENTRICLE: Normal chamber size. Normal right ventricular systolic function. TRICUSPID VALVE: Normal mobility and thickness. No stenosis with mild regurgitation. No evidence of pulmonary hypertension. RVSP 25 mmHg MITRAL VALVE: Normal mobility and thickness. No evidence of mitral valve stenosis. There is no mitral annular calcification. Trivial mitral regurgitation. AORTIC VALVE: Normal trileaflet appearance. No visible sclerosis. Normal leaflet mobility. No evidence of aortic valve stenosis. No aortic regurgitation. AORTIC ROOT: Mildly dilated, measuring 3.7 cm. Mild dilatation of the ascending aorta measuring 3.8 cm. PULMONIC VALVE: Normal thickness and mobility. No stenosis. PERICARDIUM: No evidence of pericardial effusion. IVC: Collapses with inspirations. Mild dilatation measuring 2.3 cm. PLEURA: CONCLUSION: 1. Normal left ventricular systolic function. LVEF is estimated at 60 to 65%. 2. Normal right ventricular size and systolic function. 3. Mild right atrial dilatation. 4. No significant valvular dysfunction. 5. Normal right-sided pressures. 6. Normal diastolic function. 7. Mildly dilated aortic root [3.7 cm], and ascending aorta [3.8 cm]. Adult Echocardiography Procedure Report Left Ventricle LVEDD (3.7 - 5.6 cm): 3.95 cm LVESD (2.2 - 4.0 cm): 2.94 cm LVIVS thickness (0.6 - 1.2 cm): 0.96 cm LVPW thickness (0.5 - 1.0 cm): 0.92 cm e': 0.15 m/s E - e': 4.68 LVOT Max Gradient: 2.07 mm[Hg] LVOT Area (cm2): 0.72 m/s Peak Velocity (LVOT): 0.72 m/s Mean Velocity (LVOT): 0.48 m/s LVOT Diameter 2.32 cm Left Ventricular Ejection Fraction: 60-65 % Left Atrium LA Volume Index (2D A2C): 27.65 ml/m2 Left Atrium Systolic Dimension: 3.27 cm Mitral Valve MV E to A Ratio: 1.02 Mitral Valve A-Wave Peak Velocity: 0.69 m/s Mitral Valve E-Wave Peak Velocity: 0.70 m/s Right Ventricle RV Internal Diastolic Dimension: 3.24 cm Aorta AO Root Diam: 3.70 cm Ascending Ao Diam: 3.79 cm Aortic Valve AoV Area (Peak Jase): 3.40 cm2, 3.40 cm2 AoV Area (VTI): 3.40 cm2, 3.40 cm2 Peak Velocity(Antegrade Flow): 0.90 m/s Peak Gradient(Antegrade Flow): 3.21 mm[Hg] Mean Velocity(Antegrade Flow): 0.63 m/s Mean Gradient(Antegrade Flow): 1.83 mm[Hg] Velocity Time Integral: 22.85 cm Tricuspid Valve Peak Velocity (Regurgitant Flow): 1.95 m/s, 1.65 m/s, 2.07 m/s Pulmonic Valve Mean Gradient: 0.66 mm[Hg] Mean Velocity: 0.37 m/s Peak Velocity: 0.56 m/s, 0.68 m/s Peak Gradient: 1.24 mm[Hg], 1.83 mm[Hg] Right Atrium Right Atrium Systolic Pressure: 63.87 ml, 63.87 ml Dictated by: Bull Calvin M.D. on 07/06/2023 at 13:11 Approved by: Bull Calvin M.D. on 07/06/2023 at 13:15
== END 2023-07-06 08:09 | disposition home or self-care (01) ==
LOC: CARD 08:08
PROVIDERS: PCP Nurse Practitioner Family; Visit Provider Nurse Practitioner Family
DX: R94.31 Abnormal electrocardiogram [ECG] [EKG] (principal)
CPT/HCPCS: 93306

== ENCOUNTER 2023-09-06 08:33 | Outpatient (OUT) | payer MEDICARE, OTHER, SELFPAY ==
--- OUTSIDE RECORDS SUMMARY | 2023-09-06 08:48 | XMS_ITS | CCD ---
Author Organization [employer] Care Team Providers Care Vest Front Presser Name Role Phone MARILYN KATZ Primary Care Physician Kurt Cooper Unavailable MARILYN KATZ Admitting Unavailable MARILYN KATZ Attending Unavailable OSMANI, DR KURT Hairston Consulting Unavailable STERLING, MARILYN Primary Care Unavailable MARILYN KATZ Consulting Unavailable ODELL, DR DAVIS Consulting Unavailable ODELL, DR DAVIS Admitting Unavailable ODELL, DR DAVIS Attending Unavailable STERLING, MARILYN Primary Care Unavailable ERIN, DR BRAVO Ford Consulting Unavailable STERLING, MARILYN Admitting Unavailable STERLING, MARILYN Attending Unavailable STERLING, MARILYN Consulting Unavailable STERLING, MARILYN Primary Care Unavailable STERLING, MARILYN Admitting Unavailable STERLING, MARILYN Attending Unavailable STERLING, MARILYN Primary Care Unavailable TWILA FALLON Admitting Unavailable TWILA FALLON Attending Unavailable TWILA FALLON Consulting Unavailable STERLING, MARILYN Primary Care Unavailable RHYS THAO Consulting Unavailable STERLING, MARILYN Admitting Unavailable STERLING, MARILYN Attending Unavailable STERLING, MARILYN Primary Care Unavailable EMMANUEL PAULA Attending Unavailable Semaj SUAREZ Attending Unavailable MARILYN KATZ S Referring Unavailable Semaj SUAREZ Attending Unavailable Medications Current Medications Medication Drug Class(es) Dates Sig (Normalized) Sig (Original) ALPRAZolam 0.5 mg oral tablet (7 sources) Benzodiazepine Start: 01-29-2021 take 1 tablet by mouth once daily alprazolam 0.5 mg Tab 0.5 mg = 1 tab(s), Oral, Daily, Refills(s) 0 Start Date: 01/29/21 Status: Ordered amylase [id number] unt / lipase 96500 unt / protease [id number] unt delayed release oral capsule (4 sources) take 1 capsule by mouth three to four times daily Zenpep [id number] UNIT 1 CAPSULE Orally 3-4 TIMES A DAY Active chlordiazePOXIDE hydrochloride 5 mg / clidinium bromide 2.5 mg oral capsule (3 sources) Anticholinergic, Benzodiazepine Start: 10-28-2021 take 1 capsule by mouth every eight hours Librax 5-2.5 MG 1 CAPSULE Orally Three times a day for 30 day(s) Oct, Active escitalopram 20 mg oral tablet (7 sources) Serotonin Reuptake Inhibitor Start: 11-26-2020 take 1 mg by mouth once daily escitalopram 20 mg Tab mg tab(s), Oral, Daily, Refills(s) 0 Start Date: 11/26/20 Status: Ordered hyoscyamine sulfate 0.125 mg oral tablet (3 sources) Start: 05-31-2023 take 1 tablet by mouth twice daily Levsin 0.125 mg SL Tab 0.125 mg = 1 tab(s), Oral, BID, Refills(s) 0 Start Date: 05/31/23 Status: Ordered Start: 11-09-2021 take 1 tablet by edson th every twelve hours Hyoscyamine Sulfate ER 0.375 MG 1 tablet Orally every 12 hrs for 30 days Oct, Active lovastatin 40 mg oral tablet (7 sources) HMG-CoA Reductase Inhibitor Start: 05-31-2023 take 1 tablet by mouth once daily lovastatin 40 mg Tab 40 mg = 1 tab(s), Oral, Daily, Refills(s) 0 Start Date: 05/31/23 Status: Ordered Start: 11-26-2020 take 1 mg by mouth [...] Active traZODone hydrochloride 50 mg oral tablet (7 sources) Serotonin Reuptake Inhibitor Start: 11-26-2020 take 1 mg by mouth twice daily traZODONE 50 mg Tab mg tab(s), Oral, BID, Refills(s) 0 Start Date: 11/26/20 Status: Ordered take 1 tablet by [facility] every twenty-four hours traZODone HCl 50 MG [...] Start: 01-29-2021 take 1 capsule by mo [facility] once daily venlafaxine 75 mg Cap-ER 75 mg = 1 cap(s), Oral, Daily, Refills(s) 0 Start Date: 01/29/21 Status: Ordered Problems Active Problems Problem Classification Problem Date Documented Da te Episodic/Chronic Abdominal hernia (2 sources) Inguinal hernia; Translations: [Unilateral inguinal hernia, without obstruction or gangrene, not specified as recurrent] Onset: 09-05-2023 Episodic Abdominal pain (4 sources) Epigastric pain; Translations: [Upper abdominal pain, unspecified] Onset: 10-13-2021 Resolved: 10-13-2021 01-29-2021 Episodic Anxiety disorders (3 sources) Mixed anxiety and depressive disorder 11-26-2020 Chronic Chronic obstructive pulmonary disease and bronchiectasis (1 source) Pulmonary emphysema 05-31-2023 Chronic Diabetes mellitus without complication (1 source) Type 2 diabetes mellitus without complications; Translations: [TYPE 2 DM WITHOUT COMPLICATIONS] Onset: 01-10-2022 Chronic Disorders of lipid metabolism (7 sources) Hyperlipidemia; Translations: [Hyperlipidemia, unspecified] Onset: 01-08-2022 11-26-2020 Chronic Diverticulosis and diverticulitis (1 source) Diverticular disease of colon 05-31-2023 Chronic Gastritis and duodenitis (3 sources) Chronic superficial gastritis 02-25-2021 Chronic Other gastrointestinal disorders (5 sources) Irritable bowel syndrome with diarrhea; Translations: [Irritable bowel syndrome with diarrhea] 05-31-2023 Chronic Other gastrointestinal disorders (1 source) Irritable bowel syndrome with diarrhea Onset: 10-13-2021 Resolved: 10-13-2021 Chronic Other gastrointestinal disorders (2 sources) Disorder of intestine; Translations: [Other specified diseases of intestine] Onset: 10-07-2021 Episodic Other gastrointestinal disorders (3 sources) Borborygmi 01-29-2021 Episodic Other lower respiratory disease (1 source) Multiple nodules of lung 05-31-2023 Episodic Other nutritional; endocrine; and metabolic disorders (3 sources) Decrease in appetite 01-28-2021 Episodic Other nutritional; endocrine; and metabolic disorders (3 sources) Loss of appetite 01-29-2021 Episodic Other skin disorders (3 sources) Epidermoid cyst of skin of neck 11-26-2020 Episodic Other skin disorders (3 sources) Infection of sebaceous cyst 2020 Episodic Other skin disorders (3 sources) Night sweats 01-29-2021 Episodic Pancreatic disorders (not diabetes) (3 sources) Disorder of pancreas; Translations: [Other specified diseases of pancreas] Onset: 10-07-2021 Resolved: 10-13-2021 Episodic Residual codes; unclassified (3 sources) Early satiety 01-29-2021 Episodic Residual codes; unclassified (3 sources) Insomnia 11-26-2020 Episodic Screening and history [...] 01-10-2022 Episodic Other aftercare (1 source) Other care home (current) drug therapy; Translations: [OTH INTERMEDIATE CURRENT DRUG THERAPY] Onset: 10-18-2021 Episodic Other [...] Test Name Value Interpretation Reference Range Facility Consultation Noteon 08-01-19 Consultation Note [id number]#1.00TIFF Normal [facility] Office Visiton 07-21-2023 Follow-up visit [id number] Jerome Zhu 1955 M Date Provider Department Center 07/21/2023 3848-EMMANUEL PAULA Family History Problem Relation Age of Onset Other Father Family Status - Relation Status Age at Father Level of Service:60298 AR OFFICE/OUTPATIENT NEW MODERATE MDM 45 MINUTES Normal [facility] ECG 12-Leadon 06-29-2023 ECG 12-Lead [id number]#1.00TIFF Normal [facility] ECG 12-Leadon 06-28-2023 ECG 12-Lead [id number]#1.00TIFF Normal [facility] Consent for Procedure/Surger yon 06-22-2023 Consent for Procedure/Surgery [id number]#1.00TIFF Normal [facility] Ambulatory Visit Summaryon 0 06-20-2023 Ambulatory Visit Summary ARMANDO ZHU :1955 Visit Date:06/20/2023 Ambulatory Visit Instructions Your Care Team Attending Physician - JEREMY PATEL, Semaj Ford Primary Care Physician - MARILYN KATZ CNP Referring Physician - MARILYN KATZ CNP This Is Your Medications List [...] for choosing us for your care. Normal [facility] Facesheeton 06-20-2023 Facesheet [id number]#1.00TIFF Normal [facility] Physician Referralon 024 Physician Referral [id number]#1.00TIFF Normal [facility] CT LUNG CANCER SCREENINGon 06-13-2021 CT LUNG [...] by: BRAVO KHAN Date: 2022-04-13 06:42 Normal [facility] INSULINon 01-10-2022 Insulin 15.8 uIU/mL Normal 2.6-24.9 [facility] Comment on above: Performed By: #### I NSULIN #### [facility] [address] [address] [address] Yarelis Peñaloza CBC AUTO DIFFon 01-08-2022 BASO # 0.0 103/ul Normal 0.0-0.1 [facility] Comment on above: Performed By: #### C BC ####[facility] [address] [place] [address] [address]DrSotero Peñaloza Basophils/100 WBC (Bld) 0.5 % Normal 0.2-2.0 [facility] Comment on above: Performed By: #### C BC ####[facility] [address] [place] [address]DrSotero Peñaloza EO # 0.1 103/ul Normal 0.0-0.7 [facility] Comment on above: Performed By: #### C BC ####[facility] [address] [place] [address]DrSotero Peñaloza Eosinophils/100 WBC (Bld) 1.0 % Normal 0.9-7.0 [facility] Comment on above: Performed By: #### C BC ####[facility] [address] [address]DrSotero Peñaloza Erythrocyte distribution width (RBC) [Ratio] 11.9 % Normal 11.0-15.0 [facility] Comment on above: Performed By: #### C BC ####[facility] [address] [place] [address]DrSotero Peñaloza Hematocrit (Bld) [Volume fraction] 42.5 % Normal 42.0-54.0 [facility] Comment on above: Performed By: #### C BC ####[facility] [address] [address]DrSotero Peñaloza Hemoglobin (Bld) [Mass/Vol] 14.5 g/dL Normal 14.0-18.0 [facility] Comment on above: Performed By: #### C BC ####[facility] [address] [id number]. Yarelis Peñaloza IG # 0.04 10e3/ul Critically high 0.00-0.[address] [facility] Comment on above: Performed By: #### C BC ####[facility] [address] [place] [id number]. Yarelis Peñaloza IG % 0.5 % Normal 0.0-0.5 [facility] Comment on above: Performed By: #### C BC ####[facility] [address] [address]Dr. Yarelis Peñaloza LYMPH # 1.8 103/ul Normal 1.2-3.8 [facility] Comment on above: Performed By: #### C BC ####[facility] [address] [place] [address]Dr. Yarelis Peñaloza Lymphocytes/100 WBC (Bld) 20.7 % Normal 20.5-60.0 [facility] Comment on above: Performed By: #### C BC ####[facility] [address] [address]Dr. Staceyandrew Peñaloza MANUAL DIFF REQ NO Normal [facility] Comment on above: Performed By: #### C BC ####[facility] [address] [address]Dr. Yarelis Jh MCH (RBC) [Entitic mass] 32.5 pg Normal 25.9-34.0 [facility] Comment on above: Performed By: #### C BC ####[facility] [address] [address]Dr. Yarelis Jh MCHC (RBC) [Mass/Vol] 34.1 g/dL Normal 29.9-35.2 [facility] Comment on above: Performed By: #### C BC ####[facility] [address] [address]Dr. Yarelis Jh MCV (RBC) [Entitic vol] 95.3 fL Critically high 80.0-94.0 [facility] Comment on above: Performed By: #### C BC ####[facility] [address] [id number]. Yarelis Peñaloza MONO # 0.6 103/ul Normal 0.3-0.8 [facility] Comment on above: Performed By: #### C BC ####[facility] [address] [address] [id number]. Yarelis Peñaloza Monocytes/100 WBC (Bld) 7.1 % Normal 1.7-12.0 [facility] Comment on above: Performed By: #### C BC ####[facility] [address] [id number]. Yarelis Peñaloza NEUT # 6.1 103/ul Normal 1.4-6.5 [facility] Comment on above: Performed By: #### C BC ####[facility] [address] [id number]. Yarelis Peñaloza Neutrophils/100 WBC (Bld) 70.2 % Normal 43.0-75.0 [facility] Comment on above: Performed By: #### C BC ####[facility] [address] [id number]. Yarelis Peñaloza Platelet mean volume (Bld) [Entitic vol] 9.8 fL Normal 9.5-13.5 [facility] Comment on above: Performed By: #### C BC ####[facility] [address] [id number]. Yarelis Peñaloza PLT 241 103/ul Normal 150-450 [facility] Comment on above: Performed By: #### C BC ####[facility] [address] [id number]. Yarelis Peñaloza RBC 4.46 106/ul Critically low 4.70-6.10 [facility] Comment on above: Performed By: #### C BC ####[facility] [address] [id number]. Yarelis Peñaloza WBC 8.7 103/ul Normal 4.0-11.0 [facility] Comment on above: Performed By: #### C BC ####[facility] [address] [id number]. Yarelis Peñaloza GLYCOHEMOGLOBIN A1Con 2021 ADA RECOMMENDATION SEE BELOW Normal [facility] Comment on above: Result Comment: ADA RECOMMENDED LIMIT 4.0 - 6.0 ADA THERAPEUTIC TARGET < 7.0 ACTION SUGGESTED > 7.0 Performed By: #### A 1C #### [facility] [address] [address] [address] Yarelis Peñaloza Glucose [Mass/Vol] 108 mg/dL Normal [facility] Comment on above: Performed By: #### A 1C #### [facility] [address] [address] [address] Yarelis Peñaloza HbA1c (Bld) [Mass fraction] 5.4 % Normal 4.5-6.2 [facility] Comment on above: Performed By: #### A 1C #### [facility] [address] [place] [address] Dr. Yarelis Peñaloza LIPID PROFILEon 01-08-2022 CHOL-HDL RATIO NORM SEE BELOW Normal [facility] Comment on above: Result Comment: 3.3 - 4.4 LOW RISK 4.4 - 7.1 AVERAGE RISK 7.1 - 11.0 MODERATE RISK >11.0 HIGH RISK Performed By: #### L IPID, CMP, URIC #### [facility] [address] [place] [address] Dr. Yarelis Peñaloza Cholesterol [Mass/Vol] 174 mg/dL Normal <=200 [facility] Comment on above: Performed By: #### L IPID, CMP, URIC #### [facility] [address] [address] [address] Yarelis Peñaloza Cholesterol in HDL [Mass/Vol] 38 mg/dL Critically low 40-60 [facility] Comment on above: Performed By: #### L IPID, CMP, URIC #### [facility] [address] [address] [address] Yarelis Peñaloza Cholesterol in LDL [Mass/Vol] 111.4 mg/dL Normal [facility] Comment on above: Performed By: #### L IPID, CMP, URIC #### [facility] [address] [place] [address] Dr. Yarelis Peñaloza Cholesterol.total/ Cholesterol in HDL [Mass ratio] 4.6 {ratio} Normal [facility] Comment on above: Performed By: #### L IPID, CMP, URIC #### [facility] [address] [place] [address] Dr. Yarelis Peñaloza HDL NORMAL > or = 60 mg/dl - LO W CARDIOVASCULAR RISK <40 mg/dl - HIGH CARDIOVASCULAR RISK Normal [facility] Comment on above: Performed By: #### L IPID, CMP, URIC #### [facility] [address] [place] [address] Dr. Yarelis Peñaloza LDL CALC NORMAL SEE BELOW Normal [facility] Comment on above: Result Comment: <100 mg/dl OPTIMAL 100 - 129 mg/dl NEAR OR ABOVE OPTIMAL 130 - 159 mg/dl BORDERLINE HIGH 160 - 189 mg/dl HIGH >190 mg/dl VERY HIGH Performed By: #### L IPID, CMP, URIC #### [facility] [address] [place] [address] Dr. Yarelis Peñaloza Triglyceride [Mass/Vol] 123 mg/dL Normal <=150 [facility] Comment on above: Performed By: #### L IPID, CMP, URIC #### [facility] [address] [place] [address] Dr. Yarelis Peñaloza VLDL CALC 24.6 mg/dL Normal [facility] Comment on above: Performed By: #### L IPID, CMP, URIC #### [facility] [address] [place] [address] Dr. Yarelis Peñaloza PROF 14(COMP METB)on 022 Albumin [Mass/Vol] 3.8 g/dL Normal 3.4-5.[address] [facility] Comment on above: Performed By: #### L IPID, CMP, URIC #### [facility] [address] [place] [address] Dr. Yarelis Peñaloza Albumin/Globulin [Mass ratio] 1.2 {ratio} Normal [facility] Comment on above: Performed By: #### L IPID, CMP, URIC #### [facility] [address] [place] [address] Dr. Yarelis Peñaloza ALP [Catalytic activity/Vol] 67 U/L Normal 46-116 [facility] Comment on above: Performed By: #### L IPID, CMP, URIC #### [facility] [address] [address] [address] Yarelis Peñaloza ALT [Catalytic activity/Vol] 14 U/L Critically low 16-63 [facility] Comment on above: Performed By: #### L IPID, CMP, URIC #### [facility] [address] [address] [address] Yarelis Peñaloza Anion gap [Moles/Vol] 12.7 mmol/L Normal [facility] Comment on above: Performed By: #### L IPID, CMP, URIC #### [facility] [address] [place] [address] Dr. Yarelis Peñaloza AST [Catalytic activity/Vol] 11 U/L Critically low 15-37 [facility] Comment on above: Performed By: #### L IPID, CMP, URIC #### [facility] [address] [place] [address] Dr. Yarelis Peñaloza Bilirubin [Mass/Vol] 0.7 mg/dL Normal 0.2-1.0 [facility] Comment on above: Performed By: #### L IPID, CMP, URIC #### [facility] [address] [place] [address] Dr. Yarelis Peñaloza Calcium [Mass/Vol] 8.6 mg/dL Normal 8.5-10.[address] [facility] Comment on above: Performed By: #### L IPID, CMP, URIC #### [facility] [address] [place] [address] Dr. Yarelis Peñaloza Chloride [Moles/Vol] 103 mmol/L Normal 98-107 [facility] Comment on above: Performed By: #### L IPID, CMP, URIC #### [facility] [address] [place] [address] Dr. Yarelis Peñaloza CO2 [Moles/Vol] 26.9 mmol/L Normal 21.0-32.0 [facility] Comment on above: Performed By: #### L IPID, CMP, URIC #### [facility] [address] [address] [address] Yarelis Peñaloza Creatinine [Mass/Vol] 0.97 mg/dL Normal 0.70-1.30 [facility] Comment on above: Performed By: #### L IPID, CMP, URIC #### [facility] [address] [address] [address] Yarelis Peñaloza EGFR-AF TAJIK >60 Normal >=60 [facility] Comment on above: Performed By: #### L IPID, CMP, URIC #### [facility] [address] [address] [address] Yarelis Peñaloza EGFR-NON AF TAJIK >60 Normal >=60 [facility] Comment on above: Performed By: #### L IPID, CMP, URIC #### [facility] [address] [address] [address] Yarelis Peñaloza Globulin (S) [Mass/Vol] 3.2 g/dL Normal [facility] Comment on above: Performed By: #### L IPID, CMP, URIC #### [facility] [address] [address] [address] Yarelis Peñaloza Glucose [Mass/Vol] 102 mg/dL Normal 74-[address] [facility] Comment on above: Performed By: #### L IPID, CMP, URIC #### [facility] [address] [address] [address] Yarelis Peñaloza Potassium [Moles/Vol] 3.6 mmol/L Normal 3.5-5.1 [facility] Comment on above: Performed By: #### L IPID, CMP, URIC #### [facility] [address] [address] [address] Yarelis Peñaloza Protein [Mass/Vol] 7.0 g/dL Normal 6.4-8.2 [facility] Comment on above: Performed By: #### L IPID, CMP, URIC #### [facility] [address] [address] [address] Yarelis Peñaloza Sodium [Moles/Vol] 139 mmol/L Normal 136-145 [facility] Comment on above: Performed By: #### L IPID, CMP, URIC #### [facility] [address] [address] [address] Yarelis Peñaloza Urea nitrogen [Mass/Vol] 17.0 mg/dL Normal 7.0-18.0 [facility] Comment on above: Performed By: #### L IPID, CMP, URIC #### [facility] [address] [address] [address] Yarelis Peñaloza Urea nitrogen/Creatinin e [Mass ratio] 17.5 mg/mg Normal [facility] Comment on above: Performed By: #### L IPID, CMP, URIC #### [facility] [address] [address] [address] Yarelis Peñaloza URIC ACID SERUMon 01-08-2022 Urate [Mass/Vol] 4.8 mg/dL Normal 3.5-7.2 [facility] Comment on above: Performed By: #### L IPID, CMP, URIC #### [facility] [address] [address] [address] Yarelis Peñaloza [place] hepatobiliary w pharmon 0 10-21-2021 [place] hepatobiliary w pharm [facility] [place] [address] Nuclear Medicine Report Signed Patient: Armando Zhu MR#: [id number] 4 : 1955 Acct:[id number] Age/Sex: 65 / M ADM Date: 10/21/21 Loc: [place] Room: Type: [facility] Attending Dr: Kurt Cooper DO Ordering Provider: Kurt Cooper Jr, DO Date of Service: 10/21/21 [place] hepatobiliary w pharm: Upper abdominal pain Copies to: DO Marlo Hollis Jr, II, MD Pamela Sue Cramer, DAKOT[place] hepatobiliary w pharm 10/21/2021 8:45 AM SIGN [...] Marlo Payton M.D.10/21/2021 2:05 PM Dictation Location: [place] [address] Transcribed By: NORMAN 10/21/21 140 Dictated By: Marlo Payton II, MD 10/21/211401 Signed By: 10/21/21 140 [facility] XR HAND RT MIN 3Von 10-11-19 [...] by: RHYS THAO Date: 2021-10-10 13:44 Normal [facility] XR CSPINE MIN 4 VIEWSon 07-13 XR [...] by: KURT KEEN Date: 2021-07-26 14:30 Normal [facility] Vital Signs Date Time Vital Sign Value Performing Clinician Facility 09-05-2023 13:50-0400 Blood Pressure Location Semaj SUAREZ [facility] 09-05-2023 13:50-0400 Diastolic blood pressure 66 mm[Hg] Semaj NILL [facility] 09-05-2023 13:50-0400 Heart rate 60 /min Semaj NILL [facility] 09-05-2023 13:50-0400 Respiratory rate 16 /min Semaj NILL [facility] 09-05-2023 13:50-0400 Systolic blood pressure 118 mm[Hg] Semaj NILL [facility] 10-13-2021 14:30-0400 Body height 177.8 cm Kurt Cooper Other [employer] [facility] [employer] Other 10-13-2021 14:30-0400 Body mass index (BMI) [Ratio] 24.1 kg/m2 Kurt Cooper Other [employer] Other 10-13-2021 14:30-0400 Body weight 76.2 kg Kurt Kenneth Other [employer] Other 10-13-2021 14:30-0400 Diastolic blood pressure 74 mm[Hg] Kurt Dagobertobhavna Other [employer] Other 10-13-2021 14:30-0400 Systolic blood pressure 136 mm[Hg] Kurt Kenneth Other [employer] Other 10-07-2021 13:26-0400 Diastolic blood pressure 67 mm[Hg] Swann SALAM [facility] 10-07-2021 13:26-0400 Systolic blood pressure 113 mm[Hg] Swann SALAM [facility] Encounters Encounter Date Encounter Type Care Provider Facility Start: 09-05-2023 ambulatory Semaj GLORIALynsey Facility : [place] Start: 09-05-2023 End: 09-05-2023 Patient encounter procedure Semaj SUAREZ [facility] [place] Start: 07-21-2023 End: 07-21-2023 ambulatory EMMANUEL [facility] Start: 06-20-2023 End: 06-21-2023 ambulatory MARILYN KATZ Facility: [place] Start: 04-12-2022 End: 04-13-[address] SUSAN BAIN Facility: Start: 01-08-2022 End: 01-09-2022 ambulatory MARILYN KATZ Facility: Start: 12-29-2021 End: 12-29-2021 Patient encounter procedure Hue ALMONTE [facility] Start: 12-01-2021 End: 12-01-2021 ambulatory Kurt Cooper Other [place] Other Start: 12-01-2021 Telephone encounter Kurt Cooper [facility] Start: 11-09-2021 End: 11-09-2021 ambulatory Kurt Cooper Other [facility] Other Start: 11-09-2021 Telephone encounter Kurt Cooper [facility] Start: 10-28-2021 End: 10-28-2021 ambulatory Kurt Arenaskes Other [facility] Other Start: 10-28-2021 Telephone encounter Kurt Arenaskes [facility] Start: 10-13-2021 End: 10-13-2021 ambulatory Kurt Hykes Other [facility] Other Start: 10-13-2021 Office outpatient ne w 45 minutes Kurt Cooper [facility] Start: 10-10-2021 End: 10-10-2021 ambulatory TWILA VASYL Facility:[facility] Start: 10-07-2021 End: 10-07-2021 Patient encounter procedure Hue ALMONTE [facility] Start: 10-06-2021 ambulatory MARILYNJAILYN GARCIAMER Facility: [facility] Start: 07-29-2021 End: 08-18-2021 ambulatory MARILYN KATZ Facility:[facility] Start: 07-26-2021 End: 07-27-2021 ambulatory MARILYNJAILYN KATZ Facility:[facility] Procedures Date Procedure Procedure Detail Performing Clinician Start: 01-08-2022 PSA screening MARILYN DAVID Comment on above: Performed By: #### P [facility] #### [facility] [address] [place] [address] Dr. Yarelis Peñaloza Start: 02-17-2021 Esophagogastroduodenoscopy Swann GAGE Start: 11-12-2019 Colonoscopy Hue Camilo Tonsillectomy and adenoidectomy Swann EvergigAM Immunizations Immunization Date Immunization Notes Care Provider [facility] 04-24-2023 influenza virus vaccine, unspecified formulation Semaj SUAREZ [facility] 02-07-2022 SARS-CoV-2 (COVID-19 ) [id number] Semaj SUAREZ [facility] 09-27-2021 SARS-CoV-2 mRNA (xnniundeklm-fzgj-lhuyo se) vaccine Semaj SUAREZ [facility] 03-15-2021 influenza virus vaccine, unspecified formulation Hue ALMONTE [facility] 03-09-2021 SARS-CoV-2 (COVID-19 ) mRNA BNT-162b2 vax Semaj NILL [facility] Comment on above: Result Comment: 2023: [id number] 08-18-2020 SARS-CoV-2 (COVID-19 ) mRNA BNT-162b2 dhavalx Semaj NILL [facility] 07-27-2020 SARS-CoV-2 (COVID-19 ) mRNA BNT-162b2 vax Semaj NILL [facility] Payers Date Payer Category Payer Unknown [id number] 2022 Unknown [id number] 2022 Medicare [id number] 1959 Self-pay 1959 Unknown [id number]. [id number] 1957 Unknown [id number] 2.16.84 [id number] 1957 Unknown [id number] 2.16.84 [id number] 1957 Unknown [id number] 2.16.84 [id number] 1957 Unknown [id number] 2.16.84 [id number] 1957 Unknown [id number] 2.16.84 [id number] 1957 Unknown [id number] 2.16.84 [id number] 1957 Unknown [id number] 2.16.8 [id number] 1957 Unknown [id number] 2.16.8 [id number] Social History Date Type Detail Facility Start: 10-07-2021 End: 09-05-2023 Tobacco smoking status Ex-smoker (finding) [facility] Tobacco smoking status Never Mitzi [facility] Sex Assigned At Male [facility] Functional Status Date Assessment Result Facility 09-05-2023 Functional Status N/A [facility] [place] Clinical Notes 05-21-2021 to 07-21-2023 Note Date & Type Note Facility 07-21-2023 Note Cardiology Clinic No te Chief Complaint: Perioperative risk stratification HPI: Armando Zhu is a 67 y.o. male With a past medical history including hyperlipidemia who presents to cardiology clinic for perioperative restratification prior to surgery. Patient was reportedly found to be bradycardic, and as such, a 48-hour event monitor was ordered. On his event monitor, he had brief runs of PSVT, in addition to some sinus bradycardia during sleep. He was asked to follow-up with cardiology. Patient adamantly denies any cardiac complaints or concerns. He adamantly denies any chest pain. He adamantly denies any shortness of breath. He denies any lower extremity edema, orthopnea, or paroxysmal nocturnal dyspnea. He denies any dizziness or lightheadedness. No near-syncope or syncope. Patient denies any previous history of CVA, PVD, DM, HTN, Depressed LVEF, and CAD. Patient states that he is active, and is easily able to complete >4 METS of activity without symptoms. Echo was performed and was unremarkable. Cardiology ROS: GENERAL: Denies fever, chills, night sweats, weight loss. HEENT: Denies changes in vision, photophobia, changes in hearing, epistaxis, oral bleeding. CARDIOVASCULAR: Denies chest pain, exertional dyspnea, orthopnea/PND, lower extremity edema, palpitations, lightheadedness/dizziness. RESPIRATORY: Denies SOB, coughing, wheezing GI: Denies abdominal pain, nausea/vomiting, heartburn, melena/hematochezia. RENAL: Denies dysuria, hematuria, flank pain. MSK: Denies muscle weakness/pain, arthralgias/joint pain. NEUROLOGIC: Denies LOC, weakness, numbness, headaches. SKIN: Denies abnormal rashes or bleeding. PSYCH: Denies significant anxiety, depression, sleep disturbances. Past Medical History He has a past medical history of Abnormal ECG and Hyperlipidemia. Surgical History He has a past surgical history that includes Tonsillectomy. Social History He reports that he has quit smoking. His smoking use included cigarettes. He has never used smokeless tobacco. He reports that he does not drink alcohol. No history on file for drug use. Family History Family History Problem Relation Name Age of Onset Other (pacemaker) Father Medications Current Outpatient Medications on File Prior to Visit Medication Sig Dispense Refill escitalopram (Lexapro) 20 mg tablet Take 20 mg by mouth in the morning. hyoscyamine ER (Levbid) 0.375 mg 12 hr tablet Take 0.375 mg by mouth every 12 (twelve) hours if needed. lovastatin (Mevacor) 40 mg tablet TAKE 1 TABLET BY MOUTH EVERY DAY WITH EVENING MEAL traZODone (Desyrel) 50 mg tablet TAKE 1 TABLET BY MOUTH EVERY DAY AT BEDTIME NEEDED No current facility-administered medications on file prior to visit. Allergies Patient has no known allergies. Physical Exam VITAL SIGNS: BP 94/58 (BP Location: Left arm, Patient Position: Sitting) Pulse 63 Ht 1.778 m (5' 10 ) Wt 68.9 kg (152 lb) SpO2 97% BMI 21.81 kg/m??? Constitutional: Well developed, Well nourished, No acute distress, Non-toxic appearance. HENT: Normocephalic, Atraumatic, Bilateral external ears have normal appearance, Nose appears normal, nares are patent. Eyes: PERRLA, EOMI, Conjunctiva normal, No discharge. Neck: Normal range of motion, No tenderness, Supple, No stridor. No cervical lymphadenopathy noted. Cardiovascular: Normal heart rate, Normal rhythm, No murmurs, No rubs, No gallops. Thorax & Lungs: Normal breath sounds, No respiratory distress, No wheezing, No chest tenderness to palpation. Abdomen: Bowel sounds normal, Soft, Nontender, No masses, No pulsatile masses. Skin: Warm, Dry, No erythema, No rash. Back: No tenderness, No CVA tenderness. Extremities: Intact distal pulses, No edema, No tenderness, No cyanosis, No clubbing. Musculoskeletal: Grossly normal strength in extremities Neurologic: Alert & oriented x 3, no gross focal neurological deficits Psychiatric: Affect normal, Judgment normal, Mood normal. EKG results: No results found for this or any previous visit (from the past 4464 hour(s)). Echo results: No echocardiogram results found for the past 12 months Radiology: No image results found. Impression: -Periop risk stratification -Asymptomatic sinus bradycardia -Non sustained PSVT -Abnormal EKG with LAFB Plan: -Patient adamantly denies any complaints or concerns. Given his sinus bradycardia during sleep, would recommend outpatient sleep study. -Patient adamantly denies any chest pain or shortness of breath. No signs/symptoms of decompensated heart failure or ACS. Patient reports being able to complete greater than 4 METS of activity without any cardiac symptoms. Echo reviewed and is low risk. Patient is moderate risk for surgery. May proceed without additional cardiac testing at this time. Would recommend avoiding AV laura blockade agents. -Optimize medical management -Aggressive risk factor modification (more content not included)... [facility] 07-21-2023 Note New patient here to establish care. Ref from Marilyn Katz CNP for clearance prior to hernia surgery with Dr. Suarez. He had EKG for pre-op testing and HR was low, so he wore Holter monitor for 3 days. Had echo a few weeks ago. He denies chest pain, SOB, and palpitations. Says his lightheadedness is very seldom and occurs upon standing too quickly. Review of Systems Musculoskeletal: Positive for arthritis, back pain and joint pain. All other systems reviewed and are negative. [facility] 06-20-2023 Note Chief Complaint consultation for left [...] age 18.0 Years. Stopped age 57 Years. [facility] (more content not included)... [facility] Comment on above: Result Comment: Elec tronically Signed By: JEREMY PATEL, Semaj Contreras\Date and Time Signed: 06/20/23 19:14 EST 10-13-2021 Evaluation note Encounter Date Diagnosis Assessment Notes Oct, Exocrine pancreatic insufficiency (ICD-10 - K86.81) OBTAIN ALL RECORDS FROM [facility] Oct, Upper abdominal pain (ICD-10 - R10.10) Oct, Irritable bowel syndrome with diarrhea (ICD-10 - K58.0) Oct, Other STOP OMEPRAZOLE [facility] Other 02-24-2022 Hospital Discharge instructions Follow Up Care 07/08/2021 15:18:35 With:GAGE PATEL, PATRICIO [place], [facility] Address: [facility] [address] [place] [address] [place] [address]- When:4 weeks [facility] [id number] Evaluation + Plan note Future Scheduled Tests Laboratory* Pancreatic Elastase, Fecal 05/21/21 * Vitamin D 25 Hydroxy 07/08/21 [facility] Evaluation + Plan note Future Appointments Appointment Date:12/29/2021 08:30:00 AM Scheduled Provider:Hue ALMONTE MD Location:[facility] Appointment Type:[facility] Follow Up Future Scheduled Tests Laboratory* Pancreatic Elastase, Fecal 05/21/21 * Vitamin D 25 Hydroxy 07/08/21 [facility] Evaluation noteNo [employer] Other History general Narrative - Reported* Type Description Date Medical History stating Medical History GERD Medical History anxiety/depression Surgical History tonsillectomy Surgical History finger surgery-wood removed [facility] Other Hospital course Narrative No data available for this section [facility] Hospital Discharge instructions No data available for this section [facility] Progress note No data available for this section [facility] Summary Purpose Family History No Family History Records FoundNo Family History Records FoundNo Family History Records FoundNo Family History Records Found No data available for this section Advance Directives No Advanced Directives Records FoundNo Advanced Directives Records FoundNo Advanced Directives Records FoundNo Advanced Directives Records Found Additional Source Comments (unrecognized sect ion and content) No Status Records FoundNo Status Records FoundNo Status Records FoundNo Status Records Found INFORMATION SOURCE (unrecogn ized section and content) DATE CREATED AUTHOR 10/24/2021 [facility] DATE CREATED AUTHOR AUTHOR'S ORGANIZ ATION [facility]/2022 [facility] DATE CREATED AUTHOR AUTHOR'S ORGANIZ ATION 07/22/2023 [facility] DATE CREATED AUTHOR AUTHOR'S ORGANIZ ATION 09/03/2023 [facility] REASON FOR VISIT (unrecogniz ed section and content) [employer] denialPATIENT HERE AT THE REQUEST OF DR BAIN FOR EXOCRINE PANCREATIC INSUFFICIENCYClinical Acute IllnessREFILL Care Team (unrecognized sect ion and content) Personnel Name: MARILYN KATZ CNP Address: [address] [place] [address] Personnel Name: MARILYN KATZ CNP Address: Address: [address] [place] [address] FOR RECORDS PERTAINING TO PATIENTS WHO ARE [...] BE BASED ON THE PRIMARY CLINICAL RECORDS. [employer] provides no warranty or guarantee of the accuracy or completeness of information in this document.
== END 2023-09-06 08:34 | disposition home or self-care (01) ==
LOC: PST 08:34
PROVIDERS: PCP Nurse Practitioner Family; Visit Provider Surgery
DX: Z01.818 Encounter for other preprocedural examination (principal); K40.90 Unilateral inguinal hernia, without obstruction or gangrene, not specified as recurrent

== ENCOUNTER 2023-09-20 08:04 | Day surgery (SDC) | payer MEDICARE, OTHER, SELFPAY ==
[2023-06-28 11:24] VITALS: BP 97/55; PULSE 49; RESP 14; TEMP 36.2; O2SAT 98; BMI 22.2
[2023-09-20] VITALS (10 sets, daily range): BP systolic 90–152; BP diastolic 53–83; PULSE 51–74; TEMP 36.2–36.3; O2SAT 96–99
--- NOTE | 2023-09-20 | OP_ITS ---
OPERATION DATE: 09/20/2023 PREOPERATIVE DIAGNOSIS: Left inguinal hernia. POSTOPERATIVE DIAGNOSIS: Direct left inguinal hernia. PROCEDURE: Left direct inguinal herniorrhaphy with Bard mesh insertion. SURGEON: Semaj Suarez M.D. ANESTHESIA: General endotracheal as well as left sided TAP block. ESTIMATED BLOOD LOSS: Less than 5 mL. INDICATIONS AND CONSENT: Patient is a 67-year-old male with who presents for enlarging, symptomatic, left inguinal hernia that is reducible. Indications, risks, benefits, alternatives of proceeding with left inguinal herniorrhaphy with mesh insertion were explained extensively to the patient, including the risks of bleeding, infection, scarring, pain, recurrence, need for further surgery, nerve injury, testicular injury, blood clot, pulmonary embolus, heart attack, anesthetic complications, or mesh removal were all explained in detail. All of his questions were answered. Informed consent was obtained. PROCEDURE: Patient brought to the operating room, placed in the supine position. General anesthesia was induced. He was prepped and draped in the usual sterile fashion. Prior to that, a TAP block was performed. A left groin incision was made in the area of the skin crease and carried down to through subcutaneous tissue using electrocautery and sharp dissection. Karine?s fascia was divided. The external oblique, which was attenuated, was opened along the dorsum of its fibers, down through the external inguinal ring. Cord structures were mobilized and retracted with a Moshe drain. There was noted to be no indirect sac. There was noted to be a direct hernia sac. This was freed up and reduced. The floor was imbricated with interrupted 2-0 Prolene sutures. The wound was irrigated with antibiotic saline. There was good hemostasis. The Bard 5 x 10 cm mesh was trimmed and a keyhole was created. It was placed in the floor of the inguinal canal. The arms were placed around the cord structures. It was then secured circumferentially using interrupted 3-0 Vicryl sutures. Care was taken to avoid undue tension on the cord structures. Once this was complete, the wound was irrigated once again. There was good hemostasis. The external oblique was closed with a running 3-0 Vicryl suture. 10 cc of 0.5% Marcaine was injected in the subcutaneous tissue. The Karine?s fascia was re- approximated with interrupted 3-0 Monocryl suture. The skin was then closed with a running 4-0 subcuticular Monocryl suture and skin glue. Sterile pressure dressing was applied. Sponge and needle counts were correct x2 per nursing personnel. Patient tolerated procedure well, was extubated and sent to recovery room in good condition. CC: DAKOTAH Daniel
--- OUTSIDE RECORDS SUMMARY | 2023-09-20 08:20 | XMS_ITS | CCD ---
Author Organization [facility] Care Team Providers Care Sales Merchandise Associate Name Role Phone MARILYN KATZ Primary Care Physician Kurt Cooper Unavailable MARILYN KATZ Admitting Unavailable MARILYN KATZ Attending Unavailable OSMANI, DR KURT Hairston Consulting Unavailable STERLING, MARILYN Primary Care Unavailable STERLING, MARILYN Consulting Unavailable ODELL, DR DAVIS Consulting Unavailable ODELL, DR DAVIS Admitting Unavailable YULIYAY, DR DAVIS Attending Unavailable STERLING, MARILYN Primary [...] 0 Start Date: 01/29/21 Status: Ordered amylase [id number] unt / lipase [id number] unt / protease [id number] unt delayed release oral capsule (4 sources) take 1 capsule by mouth three to four times daily Zenpep [id number] UNIT 1 CAPSULE Orally 3-4 TIMES A [...] 11/26/20 Status: Ordered take 1 tablet by [facility] every twenty-four hours traZODone HCl 50 MG [...] 01-29-2021 take 1 capsule by mo [facility] once daily venlafaxine 75 mg Cap-ER [...] 01-10-2022 Episodic Other aftercare (1 source) Other moth exterminator (current) drug therapy; Translations: [OTH CUSTODIAL CURRENT DRUG THERAPY] Onset: 10-18-2021 Episodic Other [...] Test Name Value Interpretation Reference Range Facility Ambulatory Visit Summaryon 0 09-05-2023 Ambulatory Visit Summary ARMANDO ZHU :1955 Visit Date:09/05/2023 Ambulatory Visit Instructions Your Care Team Attending Physician - JEREMY PATEL, Semaj Ford Primary Care Physician - MARILYN KATZ CNP This Is Your Medications List alprazolam (alprazolam 0.5 mg Tab) escitalopram (escitalopram 20 mg Tab) hyoscyamine (Levsin 0.125 mg SL Tab) lovastatin (lovastatin 40 mg Tab) trazodone (traZODONE 50 mg Tab) Procedures Performed EGD - Esophagogastroduodenoscopy (02/17/2021), Colonoscopy (11/12/2019), Tonsillectomy and adenoidectomy. Discharge Vitals Heart Rate (Peripheral) 60 Respiratory Rate 16 Blood Pressure 118/66 Height 177.8 cm Height 70 in Weight 70 kg Weight 154 lb BMI 22.14 Medications What How Much When Instructions Unchanged alprazolam (alprazolam 0.5 mg Tab) 1 Tablets By Mouth Every day Unchanged escitalopram (escitalopram 20 mg Tab) By Mouth Every day Unchanged hyoscyamine (Levsin 0.125 mg SL Tab) 1 Tablets By Mouth 2 times a day Unchanged lovastatin (lovastatin 40 mg Tab) 1 Tablets By Mouth Every day Unchanged trazodone (traZODONE 50 mg Tab) By Mouth 2 times a day Allergies No Known Allergies Problems Ongoing - Any problem that you are currently receiving treatment for. Borborygmus Depression with anxiety Diverticular disease of colon Early satiety Emphysema lung Epidermoid cyst of neck Epigastric pain Gastritis Hyperlipidemia Infected sebaceous cyst Insomnia Irritable bowel syndrome with diarrhea Multiple nodules of lung Night sweats Reducible left inguinal hernia Historical - Any problem that you are no longer receiving treatment for. Decreased appetite Loss of appetite for more than 2 weeks Patient Survey You may receive a survey via text or e-mail asking about your office visit. Please share your experience with us by completing your survey. We appreciate your feedback and thank you for choosing us for your care. Normal [facility] General Surgery Office/Clini c Noteon 09-05-2023 General Surgery Office/Clinic Note Chief Complaint update H&P HPI Staff Presents to update H&P for left inguinal hernia repair scheduled 09/19. Last evaluation completed 06/20. Denies changes since last evaluation. History of Present Illness 67 yo male with h/o hyperlipidemia, recently found to have episodes of bradycardia and PSVT, here for reevaluation of LIH; was scheduled in June for repair, but had abnormal EGD; subsequently had Holter monitor and ECHO, and has been cleared by Cardiology; patient denies chest pain; no change in hernia or abd pain; no change in bms; no asa or NSAID use; no tobacco use. Review of Systems PHQ Score Initial Depression Screen Score: 0 SCORE ROS - Provider Constitutional: no fever, no sweats, no weight loss. Eyes: yes glasses, no blurred vision, no visual loss. [...] & Measurements HR: 60(Peripheral) RR: 16 BP: 118/66 HT: 70 in HT: 177.8 cm WT: 70 kg WT: 154 lb BMI: 22.14 HEENT: normal conjunctiva, sclera clear, no scleral icterus, EOM intact, PERRLA, oral mucosa moist without lesions. Neck: trachea midline, no mass, symmetric, no thyromegaly or nodules, no adenopathy Respiratory: lungs CTA, respirations non labored. Cardiovascular: regular rate and rhythm, no murmur, no pedal edema or varicosities. Gastrointestinal: soft, non distended, no tenderness, no masses, small reducible left inguinal hernia, no skin changes, nontender, diastasis recti no, no hepatosplenomegaly; normal bs Lymphatic: no cervical adenopathy, supraclavicular adenopathy, no inguinal adenopathy. Musculoskeletal: normal gait, digits and nails without infection, nodes, cyanosis, clubbing. Skin: no rashes, no lesions, no ulcers, no subcutaneous nodules, induration. Psychiatric/Neuro: oriented to time, place, person, judgement normal, affect appropriate for age, insight intact, no focal deficits. Tests: labs reviewed, x-rays reviewed, review of old records completed , Discussed surgical options, risks, and possible complications with patient. Assessment/Plan 1. Reducible left inguinal hernia (K40.90: Unilateral inguinal hernia, without obstruction or gangrene, not specified as recurrent) plan left inguinal herniorrhaphy with mesh insertion; informed consent obtained. Ancef 2 gms IV prior to OR TAP block per Anesthesia SCDs Follow-up No qualifying data available Problem List/Past Medical History Ongoing Borborygmus Depression with anxiety Diverticular disease of [...] age 18.0 Years. Stopped age 57 Years. Household tobacco concerns: No., 09/05/2023 Family History Hypertension: Mother. Primary malignant neoplasm of female breast: Mother. Primary malignant neoplasm of prostate: Father. Stroke: Father. Immunizations Vaccine Date Status Comments influenza virus vaccine, inactivated 04/24/2023 Recorded SARS-CoV-2 (COVID-19) [id number].[id number] 02/07/2022 Recorded SARSCoV2 mRNA(vgqreqniw-msal-lmplzv) vac 09/27/2021 Recorded influen (more content not included)... Normal [facility] Comment on above: Result Comment: Elec tronically Signed By: JEREMY PATEL, Semaj Contreras\Date and Time Signed: 09/05/23 14:21 EDT Consultation Noteon 08-01-19 24 Consultation Note [id number]#1.00TIFF Normal [facility] Office Visiton 07-21-2023 Follow-up visit [id number] Jerome Zhu 1955 M Date Provider Department Center 07/21/2023 [facility]EMMANUEL [facility]ULA C[facility] Family History Problem Relation Age of Onset Other Father Family Status - Relation Status Age at Father Level of Service:[address] [place] OFFICE/OUTPATIENT NEW MODERATE MDM 45 MINUTES Normal [facility] ECG 12-Leadon 06-29-2023 ECG 12-Lead [id number]#1.00TIFF Normal [facility] ECG 12-Leadon 06-28-2023 ECG 12-Lead [id number]#1.00TIFF Normal [facility] Consent for Procedure/Surger yon 06-22-2023 Consent for Procedure/Surgery [id number]#1.00TIFF Normal [facility] Ambulatory Visit Summaryon 0 06-20-2023 Ambulatory Visit Summary ARMANDO ZHU :1955 Visit Date:06/20/2023 Ambulatory Visit Instructions Your Care Team Attending Physician - Semaj SUAREZ MD Primary Care Physician - MARILYN KATZ CNP [...] [facility] Facesheeton 06-20-2023 Facesheet [id number]#1.00TIFF Normal [facility] Physician Referralon 024 Physician Referral [id number]#1.00TIFF [facility] CT LUNG CANCER SCREENINGon 06-13-2021 CT LUNG [...] BRAVO KHAN Date: 2022-04-13 06:42 Normal [facility] INSULINon 01-10-2022 Insulin 15.8 uIU/mL Normal 2.6-24.9 [facility] Comment on above: Performed By: #### I NSULIN #### [facility] Laboratory [address] [address] [address] Yarelis Peñaloza CBC AUTO DIFFon 01-08-2022 BASO # 0.0 103/ul Normal 0.0-0.1 [facility] Comment on above: Performed By: #### C BC ####[facility] [address] [address]Dr. Yarelis Peñaloza Basophils/100 WBC (Bld) 0.5 % Normal 0.2-2.0 [facility] Comment on above: Performed By: #### C BC ####[facility] [address] [address]Dr. Yarelis Peñaloza EO # 0.1 103/ul Normal 0.0-0.7 [facility] Comment on above: Performed By: #### C BC ####[facility] [address] [address]Dr. Yarelis Peñaloza Eosinophils/100 WBC (Bld) 1.0 % Normal 0.9-7.0 [facility] Comment on above: Performed By: #### C BC ####[facility] [address] [address]Dr. Yarelis Peñaloza Erythrocyte distribution width (RBC) [Ratio] 11.9 % Normal 11.0-15.0 [facility] Comment on above: Performed By: #### C BC ####[facility] [address] [address]Dr. Yarelis Peñaloza Hematocrit (Bld) [Volume fraction] 42.5 % Normal 42.0-54.0 [facility] Comment on above: Performed By: #### C BC ####[facility] [address] [address]Dr. Yarelis Peñaloza Hemoglobin (Bld) [Mass/Vol] 14.5 g/dL Normal 14.0-18.0 [facility] Comment on above: Performed By: #### C BC ####[facility] [address] [place], [place] [address]Dr. Yarelis Peñaloza IG # 0.04 10e3/ul Critically high 0.00-0.03 [facility] Comment on above: Performed By: #### C BC ####[facility] [address] [place], [place] [address]Dr. Yarelis Peñaloza IG % 0.5 % Normal 0.0-0.5 [facility] Comment on above: Performed By: #### C BC ####[facility] [address] [place], [place] [address]DrSotero Peñaloza LYMPH # 1.8 103/ul Normal 1.2-3.8 [facility] Comment on above: Performed By: #### C BC ####[facility] [address] [place], [place] [address]DrSotero Peñaloza Lymphocytes/100 WBC (Bld) 20.7 % Normal 20.5-60.0 [facility] Comment on above: Performed By: #### C BC ####[facility] [address] [place], [place] [address]DrSotero Peñaloza MANUAL DIFF REQ NO Normal [facility] Comment on above: Performed By: #### C BC ####[facility] [address] [place], [place] [address]DrSotero Peñaloza MCH (RBC) [Entitic mass] 32.5 pg Normal 25.9-34.0 [facility] Comment on above: Performed By: #### C BC ####[facility] [address] [address]DrSotero Peñaloza MCHC (RBC) [Mass/Vol] 34.1 g/dL Normal 29.9-35.2 [facility] Comment on above: Performed By: #### C BC ####[facility] [address] [address]DrSotero Peñaloza MCV (RBC) [Entitic vol] 95.3 fL Critically high 80.0-94.0 [facility] Comment on above: Performed By: #### C BC ####[facility] [address] [place], [place] [address]DrSotero Peñaloza MONO # 0.6 103/ul Normal 0.3-0.8 [facility] Comment on above: Performed By: #### C BC ####[facility] [address] [place], [place] [address]DrSotero Peñaloza Monocytes/100 WBC (Bld) 7.1 % Normal 1.7-12.0 [facility] Comment on above: Performed By: #### C BC ####[facility] [address] [place], [place] [address]DrSotero Peñaloza NEUT # 6.1 103/ul Normal 1.4-6.5 [facility] Comment on above: Performed By: #### C BC ####[facility] [address] [place], [place] [address]DrSotero Peñaloza Neutrophils/100 WBC (Bld) 70.2 % Normal 43.0-75.0 [facility] Comment on above: Performed By: #### C BC ####[facility] [address] [place], [place] [address]DrSotero Peñaloza Platelet mean volume (Bld) [Entitic vol] 9.8 fL Normal 9.5-13.5 [facility] Comment on above: Performed By: #### C BC ####[facility] [address] [place], [place] [address]Dr. Yarelis Peñaloza PLT 241 103/ul Normal 150-450 [facility] Comment on above: Performed By: #### C BC ####[facility] [address] [place], [place] [address]TqSotero Peñaloza RBC 4.46 106/ul Critically low 4.70-6.10 [facility] Comment on above: Performed By: #### C BC ####[facility] [address] [place], [place] [address]LnSotero Peñaloza WBC 8.7 103/ul Normal 4.0-11.0 [facility] Comment on above: Performed By: #### C BC ####[facility] [address] [place], [place] [address]UwDr. Yarelis Peñaloza GLYCOHEMOGLOBIN A1Con 2021 ADA RECOMMENDATION SEE BELOW Normal [facility] Comment on above: Result Comment: ADA RECOMMENDED LIMIT 4.0 - 6.0 ADA THERAPEUTIC TARGET < 7.0 ACTION SUGGESTED > 7.0 Performed By: #### A 1C #### [facility] Laboratory [address] [address] [address] Yarelis Peñaloza Glucose [Mass/Vol] 108 mg/dL Normal [facility] Comment on above: Performed By: #### A 1C #### [facility] Laboratory [address] [address] [address] Yarelis Peñaloza HbA1c (Bld) [Mass fraction] 5.4 % Normal 4.5-6.2 [facility] Comment on above: Performed By: #### A 1C #### [facility] Laboratory [address] [address] [address] Yarelis Peñaloza LIPID PROFILEon 01-08-2022 CHOL-HDL RATIO NORM SEE BELOW Normal [facility] Comment on above: Result Comment: 3.3 - 4.4 LOW RISK 4.4 - 7.1 AVERAGE RISK 7.1 - 11.0 MODERATE RISK >11.0 HIGH RISK Performed By: #### L IPID, CMP, URIC #### [facility] Laboratory [address] [address] [address] Yarelis Peñaloza Cholesterol [Mass/Vol] 174 mg/dL Normal <=200 [facility] Comment on above: Performed By: #### L IPID, CMP, URIC #### [facility] Laboratory [address] [address] [address] Yarelis Peñaloza Cholesterol in HDL [Mass/Vol] 38 mg/dL Critically low 40-60 [facility] Comment on above: Performed By: #### L IPID, CMP, URIC #### [facility] Laboratory [address] [address] [address] Yarelis Peñaloza Cholesterol in LDL [Mass/Vol] 111.4 mg/dL Normal [facility] Comment on above: Performed By: #### L IPID, CMP, URIC #### [facility] Laboratory [address] [address] [address] Yarelis Peñaloza Cholesterol.total/ Cholesterol in HDL [Mass ratio] 4.6 {ratio} Normal [facility] Comment on above: Performed By: #### L IPID, CMP, URIC #### [facility] Laboratory [address] [address] [address] Yarelis Peñaloza HDL NORMAL > or = 60 mg/dl - LO W CARDIOVASCULAR RISK <40 mg/dl - HIGH CARDIOVASCULAR RISK Normal [facility] Comment on above: Performed By: #### L IPID, CMP, URIC #### [facility] Laboratory [address] [address] [address] Yarelis Peñaloza LDL CALC NORMAL SEE BELOW Normal [facility] Comment on above: Result Comment: <100 mg/dl OPTIMAL 100 - 129 mg/dl NEAR OR ABOVE OPTIMAL 130 - 159 mg/dl BORDERLINE HIGH 160 - 189 mg/dl HIGH >190 mg/dl VERY HIGH Performed By: #### L IPID, CMP, URIC #### [facility] [address] [address] [address] Yarelis Peñaloza Triglyceride [Mass/Vol] 123 mg/dL Normal <=150 [facility] Comment on above: Performed By: #### L IPID, CMP, URIC #### [facility] [address] [address] [address] Yarelis Peñaloza VLDL CALC 24.6 mg/dL Normal [facility] Comment on above: Performed By: #### L IPID, CMP, URIC #### [facility] Laboratory [address] [address] [address] Yarelis Peñaloza PROF 14(COMP METB)on 022 Albumin [Mass/Vol] 3.8 g/dL Normal 3.4-5.[address] [facility] Comment on above: Performed By: #### L IPID, CMP, URIC #### [facility] [address] [address] [address] Yarelis Peñaloza Albumin/Globulin [Mass ratio] 1.2 {ratio} Normal [facility] Comment on above: Performed By: #### L IPID, CMP, URIC #### [facility] [address] [address] [address] Yarelis Peñaloza ALP [Catalytic activity/Vol] 67 U/L Normal 46-116 [facility] Comment on above: Performed By: #### L IPID, CMP, URIC #### [facility] [address] [address] [address] Yarelis Peñaloza ALT [Catalytic activity/Vol] 14 U/L Critically low 16-63 [facility] Comment on above: Performed By: #### L IPID, CMP, URIC #### [facility] [address] [address] [address] Yarelis Peñaloza Anion gap [Moles/Vol] 12.7 mmol/L Normal [facility] Comment on above: Performed By: #### L IPID, CMP, URIC #### [facility] [address] [address] [address] Yarelis Peñaloza AST [Catalytic activity/Vol] 11 U/L Critically low 15-37 [facility] Comment on above: Performed By: #### L IPID, CMP, URIC #### [facility] [address] [address] [address] Yarelis Peñaloza Bilirubin [Mass/Vol] 0.7 mg/dL Normal 0.2-1.0 [facility] Comment on above: Performed By: #### L IPID, CMP, URIC #### [facility] Laboratory [address] [address] [address] Yarelis Peñaloza Calcium [Mass/Vol] 8.6 mg/dL Normal 8.5-10.1 [facility] Comment on above: Performed By: #### L IPID, CMP, URIC #### [facility] Laboratory [address] [place] [address] Dr. Yarelis Peñaloza Chloride [Moles/Vol] 103 mmol/L Normal 98-107 [facility] Comment on above: Performed By: #### L IPID, CMP, URIC #### [facility] Laboratory [address] [place] [address] Dr. Yarelis Peñaloza CO2 [Moles/Vol] 26.9 mmol/L Normal 21.0-32.0 [facility] Comment on above: Performed By: #### L IPID, CMP, URIC #### [facility] [address] [place] [address] Dr. Yarelis Peñaloza Creatinine [Mass/Vol] 0.97 mg/dL Normal 0.70-1.30 [facility] Comment on above: Performed By: #### L IPID, CMP, URIC #### [facility] Laboratory [address] [place] [address] Dr. Yarelis Peñaloza EGFR-AF NEPALESE >60 Normal >=60 [facility] Comment on above: Performed By: #### L IPID, CMP, URIC #### [facility] Laboratory [address] [place] [address] Dr. Yarelis Peñaloza EGFR-NON AF NEPALESE >60 Normal >=60 [facility] Comment on above: Performed By: #### L IPID, CMP, URIC #### [facility] [address] [place] [address] Dr. Yarelis Peñaloza Globulin (S) [Mass/Vol] 3.2 g/dL Normal [facility] Comment on above: Performed By: #### L IPID, CMP, URIC #### [facility] Laboratory [address] [place] [address] Dr. Yarelis Peñaloza Glucose [Mass/Vol] 102 mg/dL Normal 74-106 [facility] Comment on above: Performed By: #### L IPID, CMP, URIC #### [facility] [address] [place] [address] Dr. Yarelis Peñaloza Potassium [Moles/Vol] 3.6 mmol/L Normal 3.5-5.1 [facility] Comment on above: Performed By: #### L IPID, CMP, URIC #### [facility] Laboratory [address] [address] [address] Yarelis Peñaloza Protein [Mass/Vol] 7.0 g/dL Normal 6.4-8.2 [facility] Comment on above: Performed By: #### L IPID, CMP, URIC #### [facility] [address] [address] [address] Yarelis Peñaloza Sodium [Moles/Vol] 139 mmol/L Normal 136-145 [facility] Comment on above: Performed By: #### L IPID, CMP, URIC #### [facility] [address] [address] [address] Yarelis Peñaloza Urea nitrogen [Mass/Vol] 17.0 mg/dL Normal 7.0-18.0 [facility] Comment on above: Performed By: #### L IPID, CMP, URIC #### [facility] [address] [address] [address] Yarelis Peñaloza Urea nitrogen/Creatinin e [Mass ratio] 17.5 mg/mg Normal [facility] Comment on above: Performed By: #### L IPID, CMP, URIC #### [facility] [address] [place] [address] Dr. Yarelis Peñaloza URIC ACID SERUMon 01-08-2022 Urate [Mass/Vol] 4.8 mg/dL Normal 3.5-7.2 [facility] Comment on above: Performed By: #### L IPID, CMP, URIC #### [facility] [address] [address] [address] Yarelis Peñaloza [place] hepatobiliary w pharmon 0 10-21-2021 [place] hepatobiliary w pharm [facility] [place] [address] Nuclear Medicine Report Signed Patient: Armando Zhu MR#: [id number] 4 : 1955 Acct:[id number] Age/Sex: 65 / M ADM Date: 10/21/21 Loc: [place] Room: Type: [facility] Attending Dr: Kurt Copoer DO Ordering Provider: Kurt Cooper Jr, DO Date of Service: 10/21/21 [place] hepatobiliary w pharm: Upper abdominal pain Copies to: DO Marlo Hollis Jr, II, MD Pamela Sue Cramer, [facility] hepatobiliary w pharm 10/21/2021 8:45 AM [...] Gallbladder ejection fraction is calculated at 58.8%. [place] hepatobiliary w pharm IMPRESSION: No evidence of acute cholecystitis. There is a normal gallbladder ejection fraction. Impression dictated by: Marlo Payton M.D.10/21/2021 2:05 PM Dictation Location: [place] [address] Transcribed By: [facility] 10/21/21 140 Dictated By: Marlo Payton II, MD 10/21/211401 Signed By: 10/21/21 1405 [facility] XR HAND RT MIN 3Von 10-11-19 [...] by: RHYS THAO Date: 2021-10-10 13:44 Normal [facility] XR CSPINE MIN 4 VIEWSon 07-13 XR [...] by: KURT KEEN Date: 2021-07-26 14:30 Normal [facility] Vital Signs Date Time Vital Sign Value Performing Clinician Facility 09-05-2023 13:50-0400 Blood Pressure Location [facility] 09-05-2023 13:50-0400 Diastolic blood pressure 66 mm[Hg] [facility] 09-05-2023 13:50-0400 Heart rate 60 /min [facility] 09-05-2023 13:50-0400 Respiratory rate 16 /min [facility] 09-05-2023 13:50-0400 Systolic blood pressure 118 mm[Hg] [facility] 10-13-2021 14:30-0400 Body height 177.8 cm Kurt Cooper Other [employer] Other 10-13-2021 14:30-0400 Body mass index (BMI) [Ratio] 24.1 kg/m2 Kurt Cooper Other [employer] Other 10-13-2021 14:30-0400 Body weight 76.2 kg Kurt Cooper Other [employer] Other 10-13-2021 14:30-0400 Diastolic blood pressure 74 mm[Hg] Kurt Cooper Other [address] [facility] [employer] Other 10-13-2021 14:30-0400 Systolic blood pressure 136 mm[Hg] Kurt Cooper Other [facility] [employer] Other 10-07-2021 13:26-0400 Diastolic blood pressure 67 mm[Hg] Sawnn [employer] [facility] 10-07-2021 13:26-0400 Systolic blood pressure 113 mm[Hg] Swann SALAM [facility] Encounters Encounter Date Encounter Type Care Provider Facility Start: 09-05-2023 End: 09-06-2023 ambulatory [facility]aj [facility] Start: 09-05-2023 End: 09-05-2023 Patient encounter procedure Semaj SUAREZ [facility] [place] Start: 07-21-2023 End: [facility] Start: 06-20-2023 End: 06-21-2023 ambulatory Semaj SUAREZ Facility: [place] Start: 04-12-2022 End: 04-13-[address] SUSAN BAIN Facility:[facility] Start: 01-08-2022 End: 01-09-2022 ambulatory MARILYN KATZ Facility:[facility] Start: 12-29-2021 End: 12-29-2021 Patient encounter procedure Swann SALAM [facility] Start: 12-01-2021 End: 12-01-2021 ambulatory Kurt Cooper Other [facility] [employer] Other Start: 12-01-2021 Telephone encounter Kurt Cooper [facility] Start: 11-09-2021 End: 11-09-2021 ambulatory Kurt Cooper Other [employer] Other Start: 11-09-2021 Telephone encounter Kurt Cooper [facility] Start: 10-28-2021 End: 10-28-2021 ambulatory Kurt Cooper Other [employer] Other Start: 10-28-2021 Telephone encounter Kurt Cooper [facility] Start: 10-13-2021 End: 10-13-2021 ambulatory Kurt Cooper Other [employer] Other Start: 10-13-2021 Office outpatient ne w 45 minutes Kurt Cooper [facility] Start: 10-10-2021 End: 10-10-2021 ambulatory TWILA FALLON Facility:[facility] Start: 10-07-2021 End: 10-07-2021 Patient encounter procedure Hue ALMONTE [facility] Start: 10-06-2021 ambulatory MARILYN KATZ Facility: [facility] Start: 07-29-2021 End: 08-18-2021 ambulatory MARILYN KATZ Facility:[facility] Start: 07-26-2021 End: 07-27-2021 ambulatory MARILYN KATZ Facility:[facility] Procedures Date Procedure Procedure Detail Performing Clinician Start: 01-08-2022 PSA screening MARILYN DAVID Comment on above: Performed By: #### P [facility] #### [facility] [address] [place] [address] Dr. Yarelis Peñaloza Start: 02-17-2021 Esophagogastroduodenoscopy Hue ALMONTE Start: 11-12-2019 Colonoscopy Hue Camilo Tonsillectomy and adenoidectomy Hue ALMONTE Immunizations Immunization Date Immunization Notes Care Provider [facility] 04-24-2023 influenza virus vaccine, unspecified formulation Semaj SUAREZ [facility] 02-07-2022 SARS-CoV-2 (COVID-19 ) [id number] Semaj SUAREZ [facility] 09-27-2021 SARS-CoV-2 mRNA (inyjjspllev-xref-owfgo se) vaccine Semaj SUAREZ [facility] 03-15-2021 influenza virus vaccine, unspecified formulation Swann SALAM [facility] 03-09-2021 SARS-CoV-2 (COVID-19 ) mRNA BNT-162b2 vax Semaj SUAREZ [facility] Comment on above: Result Comment: 2023: [id number] 08-18-2020 SARS-CoV-2 (COVID-19 ) mRNA BNT-162b2 vax Semaj GLORIAL [facility] 07-27-2020 SARS-CoV-2 (COVID-19 ) mRNA BNT-162b2 vax Semaj GLORIAL [facility] Payers Date Payer Category Payer Unknown [id number] 2022 Unknown [id number] 2022 Medicare [id number] 1957 Self-pay 1957 Unknown [id number]. [id number] 1957 Unknown [id number] 2.16.84 [id number] 1957 Unknown [id number] 2.16.84 [id number] 1957 Unknown [id number] 1957 Unknown [id number] 2.16.84 [id number] 1957 Unknown [id number] 2.16.84 [id number] 1957 Unknown [id number] 2.16.84 [id number] 1957 Unknown [id number] 2.16.8 [id number] 1957 Unknown [id number] 2.16.8 [id number] Social History Date Type Detail Facility Start: 10-07-2021 End: 09-05-2023 Tobacco smoking status Ex-smoker (finding) [facility] Tobacco smoking status Never Mitzi [facility] Sex Assigned At Male [facility] Functional Status Date Assessment Result Facility 09-05-2023 Functional Status N/A [facility] Clinical Notes 05-21-2021 to 07-21-2023 Note Date [...] risk factor modification (more content not included)... [facility] 07-21-2023 Note New patient here to establish [...] All other systems reviewed and are negative. [facility] 06-20-2023 Note Chief Complaint consultation for left [...] age 18.0 Years. Stopped age 57 Years. [facility] (more content not included)... [facility] Comment on above: Result Comment: Elec tronically Signed By: JEREMY PATEL, Semaj Contreras\Date and Time Signed: 06/20/23 19:14 EST 10-13-2021 Evaluation note Encounter Date Diagnosis Assessment Notes Oct, Exocrine pancreatic insufficiency (ICD-10 - K86.81) OBTAIN ALL RECORDS FROM [facility] Oct, Upper abdominal pain (ICD-10 - R10.10) Oct, Irritable bowel syndrome with diarrhea (ICD-10 - K58.0) Oct, Other STOP OMEPRAZOLE [employer] Other 02-24-2022 Hospital Discharge instructions Follow Up Care 07/08/2021 15:18:35 With:GAGE PATEL, PATRICIO Swann, [facility] Address: [facility] [address] [place] [address] [place] [address]- When:4 weeks [facility] [id number] Evaluation + Plan note Future Scheduled Tests Laboratory* Pancreatic Elastase, Fecal 05/21/21 * Vitamin D 25 Hydroxy 07/08/21 [facility] Evaluation + Plan note Future Appointments Appointment Date:12/29/2021 08:30:00 AM Scheduled Provider:Hue ALMONTE MD Location:[facility] Appointment Type:[facility] Follow Up Future Scheduled Tests Laboratory* Pancreatic Elastase, Fecal 05/21/21 * Vitamin D 25 Hydroxy 07/08/21 [facility] Evaluation [facility]No [facility] Other History general Narrative - Reported* Type Description Date Medical History stating Medical History GERD Medical History anxiety/depression Surgical History tonsillectomy Surgical History finger surgery-wood removed [facility] [employer] Other Hospital course Narrative No data available for this section [facility] Hospital Discharge instructions No data available for this section [facility] Progress note No data available for this section [facility] Summary Purpose Family History No Family History Records FoundNo Family History Records FoundNo Family History Records Found No data available for this section No Family History Records Found Advance Directives No Advanced Directives Records FoundNo Advanced Directives Records FoundNo Advanced Directives Records FoundNo Advanced Directives Records Found Additional Source Comments (unrecognized sect ion and content) No Status Records FoundNo Status Records FoundNo Status Records FoundNo Status Records Found INFORMATION SOURCE (unrecogn ized section and content) DATE CREATED AUTHOR 10/24/2021 [facility] DATE CREATED AUTHOR AUTHOR'S ORGANIZ ATION 04/16/2022 [facility] DATE CREATED AUTHOR AUTHOR'S ORGANIZ ATION 07/22/2023 [facility] DATE CREATED AUTHOR AUTHOR'S ORGANIZ ATION 09/06/2023 [facility] REASON FOR VISIT (unrecogniz ed section and content) [employer] denialPATIENT HERE AT THE REQUEST OF DR BAIN FOR EXOCRINE PANCREATIC INSUFFICIENCYClinical Acute IllnessREFILL Care Team (unrecognized sect ion and content) Personnel Name: MARILYN KATZ CNP Address: [address] [place] [address] Personnel Name: MARILYN KATZ CNP Address: Address: [address] [place] [address] FOR RECORDS PERTAINING TO PATIENTS WHO ARE [...] BE BASED ON THE PRIMARY CLINICAL RECORDS. [facility]. provides no warranty or guarantee of the accuracy or completeness of information in this document.
[2023-09-20] MEDS: LACTATED RINGER'S SOLUTION 1,000 ML 50 ML IV (08:27)
[2023-09-20] MEDS: CEFAZOLIN SODIUM/DEXTROSE,ISO 2 GM/50 ML PIGGYBACK IV (08:48)
[2023-09-20] MEDS: BUPIVACAINE HCL 0.5% PF 50 MG/10 ML VIAL 20 ML INJ (09:15)
[2023-09-20] MEDS: BUPIVACAINE HCL 0.25% PF 25 MG/10 ML VIAL INJ (09:15)
[2023-09-20] MEDS: 0.9 % SODIUM CHLORIDE 10 ML INJ (09:30)
[2023-09-20] MEDS: CEFAZOLIN SODIUM 1,000 MG in 0.9 % SODIUM CHLORIDE 10 ML 10 MG IRR (09:31)
[2023-09-20] MEDS: BUPIVACAINE HCL 0.5% PF 50 MG/10 ML VIAL INJ (10:10)
== END 2023-09-20 11:37 | disposition home or self-care (01) ==
PROVIDERS: PCP Nurse Practitioner Family; Visit Provider Surgery
PROC: (CPT 49505; principal; 2023-09-20 09:00)
DX: K40.90 Unilateral inguinal hernia, without obstruction or gangrene, not specified as recurrent (principal); F41.8 Other specified anxiety disorders; J43.9 Emphysema, unspecified; E78.5 Hyperlipidemia, unspecified; K58.0 Irritable bowel syndrome with diarrhea; Z79.899 Other long term (current) drug therapy; Z87.891 Personal history of nicotine dependence; K57.30 Diverticulosis of large intestine without perforation or abscess without bleeding
CPT/HCPCS: 49505; 64488; C1781; J1094; J2704

== ENCOUNTER 2024-02-29 07:27 | Outpatient (OUT) | payer MEDICARE, OTHER, SELFPAY ==
--- OUTSIDE RECORDS SUMMARY | 2024-02-29 07:34 | XMS_ITS | CCD ---
Author Organization [facility] Care Team Providers Care Brush Holder Inspector Name Role Phone MARILYN KATZ Primary Care [...] Primary Care Unavailable TWILA FALLON Admitting Unavailable VASYL, TWILA Attending Unavailable TWILA FALLON Consulting Unavailable STERLING, MARILYN Primary Care Unavailable RHYS THAO Consulting Unavailable STERLING, MARILYN Admitting Unavailable STERLING, MARILYN Attending Unavailable STERLING, MARILYN Primary Care Unavailable EMMANUEL PAULA Attending Unavailable Semaj SUAREZ Attending Unavailable MARILYN KATZ S Referring Unavailable NILLSemaj Attending Unavailable NILL, Semaj Ford Attending Unavailable NILL, Semaj Ford Attending Unavailable NILLSemaj Attending Unavailable Medications Current Medications Medication Drug Class(es) Dates Sig (Normalized) Sig (Original) ALPRAZolam 0.5 mg oral tablet (9 sources) Benzodiazepine Start: 01-29-2021 take 1 tablet by mouth once daily alprazolam 0.5 mg Tab 0.5 mg = 1 tab(s), Oral, Daily, Refills(s) 0 Start Date: 01/29/21 Status: Ordered amylase [id number] unt / lipase [id number] unt / protease [id number] unt delayed release oral capsule (4 sources) take 1 capsule by mouth three to four times daily Zenpep [id number] UNIT 1 CAPSULE Orally 3-4 TIMES A DAY Active chlordiazePOXIDE hydrochloride 5 mg / clidinium bromide 2.5 mg oral capsule (3 sources) Anticholinergic, Benzodiazepine Start: 10-28-2021 take 1 capsule by mouth every eight hours Librax 5-2.5 MG 1 CAPSULE Orally Three times a day for 30 day(s) Oct, Active escitalopram 20 mg oral tablet (9 sources) Serotonin Reuptake Inhibitor Start: 11-26-2020 take 1 mg by mouth once daily escitalopram 20 mg Tab mg tab(s), Oral, Daily, Refills(s) 0 Start Date: 11/26/20 Status: Ordered hyoscyamine sulfate 0.125 mg oral tablet (5 sources) Start: 05-31-2023 take 1 tablet by mouth twice daily Levsin 0.125 mg SL Tab 0.125 mg = 1 tab(s), Oral, BID, Refills(s) 0 Start Date: 05/31/23 Status: Ordered Start: 11-09-2021 take 1 tablet by edson th every twelve hours Hyoscyamine Sulfate ER 0.375 MG 1 tablet Orally every 12 hrs for 30 days Oct, Active lovastatin 40 mg oral tablet (9 sources) HMG-CoA Reductase Inhibitor Start: 05-31-2023 take [...] Active traZODone hydrochloride 50 mg oral tablet (9 sources) Serotonin Reuptake Inhibitor Start: 11-26-2020 take 1 mg by mouth twice daily traZODONE 50 mg Tab mg tab(s), Oral, BID, Refills(s) 0 Start Date: 11/26/20 Status: Ordered take 1 tablet by deson every twenty-four hours traZODone HCl 50 MG [...] 01-29-2021 take 1 capsule by mo [facility] once daily venlafaxine 75 mg Cap-ER 75 mg = 1 cap(s), Oral, Daily, Refills(s) 0 Start Date: 01/29/21 Status: Ordered Problems Active Problems Problem Classification Problem Date Documented Da te Episodic/Chronic Abdominal hernia (6 sources) Inguinal hernia; Translations: [Unilateral inguinal hernia, without obstruction or gangrene, not specified as recurrent] Onset: 09-05-2023 Episodic Abdominal pain (6 sources) Epigastric pain; Translations: [Upper abdominal pain, unspecified] Onset: 10-13-2021 Resolved: 10-13-2021 01-29-2021 Episodic Anxiety disorders (5 sources) Mixed anxiety and depressive disorder 11-26-2020 Chronic Chronic obstructive pulmonary disease and bronchiectasis (3 sources) Pulmonary emphysema 05-31-2023 Chronic Diabetes mellitus without complication (1 source) Type 2 diabetes mellitus without complications; Translations: [TYPE 2 DM WITHOUT COMPLICATIONS] Onset: 01-10-2022 Chronic Disorders of lipid metabolism (9 sources) Hyperlipidemia; Translations: [Hyperlipidemia, unspecified] Onset: 01-08-2022 11-26-2020 Chronic Diverticulosis and diverticulitis (3 sources) Diverticular disease of colon 05-31-2023 Chronic Gastritis and duodenitis (5 sources) Chronic superficial gastritis 02-25-2021 Chronic Other gastrointestinal disorders (7 sources) Irritable bowel syndrome with diarrhea; Translations: [Irritable bowel syndrome with diarrhea] 05-31-2023 Chronic Other gastrointestinal disorders (1 source) Irritable bowel syndrome with diarrhea Onset: 10-13-2021 Resolved: 10-13-2021 Chronic Other gastrointestinal disorders (2 sources) Disorder of intestine; Translations: [Other specified diseases of intestine] Onset: 10-07-2021 Episodic Other gastrointestinal disorders (5 sources) Borborygmi 01-29-2021 Episodic Other lower respiratory disease (3 sources) Multiple nodules of lung 05-31-2023 Episodic Other nutritional; endocrine; and metabolic disorders (5 sources) Decrease in appetite 01-28-2021 Episodic Other nutritional; endocrine; and metabolic disorders (5 sources) Loss of appetite 01-29-2021 Episodic Other skin disorders (5 sources) Epidermoid cyst of skin of neck 11-26-2020 Episodic Other skin disorders (5 sources) Infection of sebaceous cyst 2020 Episodic Other skin disorders (5 sources) Night sweats 01-29-2021 Episodic Pancreatic disorders (not diabetes) (3 sources) Disorder of pancreas; Translations: [Other specified diseases of pancreas] Onset: 10-07-2021 Resolved: 10-13-2021 Episodic Residual codes; unclassified (5 sources) Early satiety 01-29-2021 Episodic Residual codes; unclassified (5 sources) Insomnia 11-26-2020 Episodic Screening and history [...] 01-10-2022 Episodic Other aftercare (1 source) 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 History of Present Illness 4 weeks s/p LIHR with mesh; doing well, mild soreness with increased activity, no swelling or drainage; small numb area below incision; back to work yesterday without problems. Review of Systems ROS - Provider Constitutional: no fever, no [...] and are negative or noncontributory. Physical Exam abd: soft, nontender, nondistended, incision without erythema or drainage; no ecchymoses or bulge; healing well. Assessment/Plan 1. Reducible left inguinal hernia (K40.90: Unilateral inguinal hernia, without obstruction or gangrene, not specified as recurrent) doing well; can resume regular activities; call with problems/questions. Follow-up With When Contact Information Semaj SUAREZ MD, SUR Only if needed [address] [place] [address]- Additional Instructions: Semaj SUAREZ MD, SUR [place] [address] [place] [address]- Additional Instructions: Problem List/Past Medical History Ongoing Borborygmus Depression with anxiety Diverticular disease of colon Early satiety Emphysema lung Epidermoid cyst of neck Epigastric pain Gastritis Hyperlipidemia Infected sebaceous cyst Insomnia Irritable bowel syndrome with diarrhea Multiple nodules of lung Night sweats Reducible left inguinal hernia Historical Decreased appetite Loss of appetite for more than 2 weeks Procedure/Surgical History Repair of left inguinal hernia (09/20/2023), EGD - Esophagogastroduodenoscopy (02/17/2021), Colonoscopy (11/12/2019), Tonsillectomy [...] virus vaccine, inactivated 04/24/2023 Recorded SARS-CoV-2 (COVID-19) mRNAMUL.ORD![id number] 02/07/2022 Recorded SARSCoV2 mRNA(byuwvhyuy-hmpw-zsjeio) vac 09/27/2021 Recorded influenza virus vaccine, inactivated 03/2021 Recorded influenza virus vaccine, inactivated 03/2021 Recorded influenza virus vaccine, inactivated 03/2021 Recorded SARS-CoV-2 (COVID-19) mRNA BNT-162b2 vax 03/09/2021 Recorded 2023-05-31: [id number] SARS-CoV-2 (COVID-19) mRNA BNT-162b2 vax 08/18/2020 Recorded SARS-CoV-2 (COVID-19) mRNA BNT-162b2 vax 07/27/2020 Recorded Normal [facility] Comment on above: Result Comment: Elec tronically Signed By: JEREMY PATEL, Semaj Ford\.br\Date and Time Signed: 10/17/23 16:17 EDT Ambulatory Visit Summaryon 0 09-27-2023 Ambulatory Visit Summary ARMANDO ZHU :1955 Visit Date:09/27/2023 Ambulatory Visit Instructions Your Diagnosis Reducible left inguinal hernia Your Care Team Attending Physician - JEREMY PATEL, Semaj Ford Primary Care Physician - MARILYN KATZ CNP This Is Your Medications List Contact prescribing physician if questions or concerns alprazolam (alprazolam 0.5 mg Tab) escitalopram (escitalopram 20 mg Tab) hyoscyamine (Levsin 0.125 mg SL Tab) lovastatin (lovastatin 40 mg Tab) trazodone (traZODONE 50 mg Tab) Procedures Performed Repair of left inguinal hernia (09/20/2023), EGD - Esophagogastroduodenoscopy (02/17/2021), Colonoscopy (11/12/2019), Tonsillectomy and adenoidectomy. What to do next Scheduled Follow-Up Appointments Monday. 2023 3:00 PM EDT With: JEREMY PATEL, Semaj Ford Where: [facility] General Surgery [facility] General Surgery Office/Clini c Noteon 09-27-2023 General Surgery Office/Clinic Note Chief Complaint post operative follow up HPI Staff 7 day post operative follow up post left inguinal hernia repair. Reports minimal discomfort, taking Ibuprofen 600mg TID. Denies bleeding, drainage or significant swelling or bruising. Bowels moving well. History of Present Illness 1 week s/p left inguinal herniorrhaphy with mesh for direct inguinal hernia; doing well, soreness controlled with ibuprofen; no N/V; no drainage from incisions; normal bms, no strenuous activities. Review of Systems PHQ Score Initial Depression [...] and are negative or noncontributory. Physical Exam abd: soft, nontender, nondistended, incision without erythema or drainage, minimal resolving ecchymosis; no significant induration. Assessment/Plan 1. Reducible left inguinal hernia (K40.90: Unilateral inguinal hernia, without obstruction or gangrene, not specified as recurrent) doing well; continue no lifting > 10 lbs for 3 weeks; f/u in 2 weeks, call sooner if problems/questions. Follow-up No qualifying data available Problem List/Past Medical History Ongoing Borborygmus Depression with anxiety Diverticular disease of colon Early satiety Emphysema lung Epidermoid cyst of neck Epigastric pain Gastritis Hyperlipidemia Infected sebaceous cyst Insomnia Irritable bowel syndrome with diarrhea Multiple nodules of lung Night sweats Reducible left inguinal hernia Historical Decreased appetite Loss of appetite for more than 2 weeks Procedure/Surgical History Repair of left inguinal hernia (09/20/2023), EGD - Esophagogastroduodenoscopy (02/17/2021), Colonoscopy (11/12/2019), Tonsillectomy [...] virus vaccine, inactivated 04/24/2023 Recorded SARS-CoV-2 (COVID-19) mRNAMUL.ORD![id number] 02/07/2022 Recorded SARSCoV2 mRNA(gxrilisor-xnlv-pruqlw) vac 09/27/2021 Recorded influenza virus vaccine, inactivated 03/2021 Recorded influenza virus vaccine, inactivated 03/2021 Recorded influenza virus vaccine, inactivated 03/2021 Recorded SARS-CoV-2 (COVID-19) mRNA BNT-162b2 vax 03/09/2021 Recorded 2023-05-31: [id number] SARS-CoV-2 (COVID-19) mRNA BNT-162b2 vax 08/18/2020 Recorded SARS-CoV-2 (COVID-19) mRNA BNT-162b2 vax 07/27/2020 Recorded Normal [facility] Comment on above: Result Comment: Elec tronically Signed By: JEREMY PATEL, Semaj Ford\.br\Date and Time Signed: 09/27/23 14:16 EDT Operative Reporton Operative Report [id number]#1.00TIFF Normal [facility] Ambulatory Visit Summaryon 0 09-05-2023 Ambulatory Visit [...] for choosing us for your care. Normal [facility] General Surgery Office/Clini c Noteon 09-05-2023 [...] virus vaccine, inactivated 04/24/2023 Recorded SARS-CoV-2 (COVID-19) mRNAMUL.ORD![id number] 02/07/2022 Recorded SARSCoV2 mRNA(nhhkbmldh-tpxl-rnfflk) vac 09/27/2021 Recorded influen (more content not included)... Normal [facility] Comment on above: Result Comment: Elec tronically Signed By: JEREMY PATEL, Semaj Contreras\Date and Time Signed: 09/05/23 14:21 EDT Consultation Noteon 08-01-19 Consultation Note [id number]#1.00TIFF Normal [facility] Office Visiton 07-21-2023 Follow-up visit [id number] Jerome Zhu 1955 M Date Provider Department Center 07/21/2023 3848-EMMANUEL PAULA SUDHEER [place] Family History Problem Relation Age of Onset Other Father Family Status - Relation Status Age at Father Level of Service:81548 [place] OFFICE/OUTPATIENT NEW MODERATE MDM 45 MINUTES Normal [facility] ECG 12-Leadon 06-29-2023 ECG 12-Lead [id number]#1.00TIFF Normal [facility] ECG 12-Leadon 06-28-2023 ECG 12-Lead [id number]#1.00TIFF Normal [facility] Consent for Procedure/Surger yon 06-22-2023 Consent for Procedure/Surgery [id number]#1.00TIFF Normal [facility] Ambulatory Visit Summaryon 0 06-20-2023 Ambulatory [...] for choosing us for your care. Normal [facility] Facesheeton 06-20-2023 Facesheet [id number]#1.00TIFF Normal [facility] Physician Referralon 024 Physician Referral [id number]#1.00TIFF Normal [facility] CT LUNG CANCER SCREENINGon 06-13-2021 CT [...] BRAVO KHAN Date: 2022-04-13 06:42 Normal [facility] INSULINon 01-10-2022 Insulin 15.8 uIU/mL Normal 2.6-24.9 [facility] Comment on above: Performed By: #### I NSULIN #### [facility] [address] [address] [address] Yarelis Peñaloza CBC AUTO DIFFon 01-08-2022 BASO # 0.0 103/ul Normal 0.0-0.1 [facility] Comment on above: Performed By: #### C BC ####[facility] [address] [address]Dr. Yarelis Peñaloza Basophils/100 WBC (Bld) 0.5 % Normal 0.2-2.0 [facility] Comment on above: Performed By: #### C BC ####[facility] [address] [address]Dr. Yarelis Peñaloza EO # 0.1 103/ul Normal 0.0-0.7 [facility] Comment on above: Performed By: #### C BC ####[facility] [address] [address]Dr. Yarelis Peñaloza Eosinophils/100 WBC (Bld) 1.0 % Normal 0.9-7.0 [facility] Comment on above: Performed By: #### C BC ####[facility] [address] [address]Dr. Yarelis Peñaloza Erythrocyte distribution width (RBC) [Ratio] 11.9 % Normal 11.0-15.0 [facility] Comment on above: Performed By: #### C BC ####[facility] [address] [address]Dr. Yarelis Peñaloza Hematocrit (Bld) [Volume fraction] 42.5 % Normal 42.0-54.0 [facility] Comment on above: Performed By: #### C BC ####[facility] [address] [address]Dr. Yarelis Peñaloza Hemoglobin (Bld) [Mass/Vol] 14.5 g/dL Normal 14.0-18.0 [facility] Comment on above: Performed By: #### C BC ####[facility] [address] [address]Dr. Yarelis Peñaloza IG # 0.04 10e3/ul Critically high 0.00-0.03 [facility] Comment on above: Performed By: #### C BC ####[facility] [address] [place], [place] [address]Dr. Yarelis Peñaloza IG % 0.5 % Normal 0.0-0.5 [facility] Comment on above: Performed By: #### C BC ####[facility] [address] [place], [place] [address]Dr. Yarelis Peñaloza LYMPH # 1.8 103/ul Normal 1.2-3.8 [facility] Comment on above: Performed By: #### C BC ####[facility] [address] [place], [place] [address]Dr. Yarelis Peñaloza Lymphocytes/100 WBC (Bld) 20.7 % Normal 20.5-60.0 [facility] Comment on above: Performed By: #### C BC ####[facility] [address] [place], [place] [address]Dr. Yarelis Peñaloza MANUAL DIFF REQ NO Normal [facility] Comment on above: Performed By: #### C BC ####[facility] [address] [place], [place] [address]Dr. Yarelis Peñaloza MCH (RBC) [Entitic mass] 32.5 pg Normal 25.9-34.0 [facility] Comment on above: Performed By: #### C BC ####[facility] [address] [place], [place] [address]Dr. Yarelis Peñaloza MCHC (RBC) [Mass/Vol] 34.1 g/dL Normal 29.9-35.2 [facility] Comment on above: Performed By: #### C BC ####[facility] [address] [place], [place] [address]Dr. Yarelis Peñaloza MCV (RBC) [Entitic vol] 95.3 fL Critically high 80.0-94.0 [facility] Comment on above: Performed By: #### C BC ####[facility] [address] [place], [place] [address]Dr. Yarelis Peñaloza MONO # 0.6 103/ul Normal 0.3-0.8 [facility] Comment on above: Performed By: #### C BC ####[facility] [address] [place], [place] [address]Dr. Yarelis Peñaloza Monocytes/100 WBC (Bld) 7.1 % Normal 1.7-12.0 [facility] Comment on above: Performed By: #### C BC ####[facility] [address] [place], [place] [address]Dr. Yarelis Peñaloza NEUT # 6.1 103/ul Normal 1.4-6.5 [facility] Comment on above: Performed By: #### C BC ####[facility] [address] [place], [place] [address]Dr. Yarelis Peñaloza Neutrophils/100 WBC (Bld) 70.2 % Normal 43.0-75.0 [facility] Comment on above: Performed By: #### C BC ####[facility] [address] [place], [place] [address]Dr. Yarelis Peñaloza Platelet mean volume (Bld) [Entitic vol] 9.8 fL Normal 9.5-13.5 [facility] Comment on above: Performed By: #### C BC ####[facility] [address] [place], [place] [address]Dr. Yarelis Peñaloza PLT 241 103/ul Normal 150-450 [facility] Comment on above: Performed By: #### C BC ####[facility] [address] [place], [place] [address]Dr. Yarelis Peñaloza RBC 4.46 106/ul Critically low 4.70-6.10 [facility] Comment on above: Performed By: #### C BC ####[facility] [address] [place], [place] [address]InDr. Yarelis Peñaloza WBC 8.7 103/ul Normal 4.0-11.0 [facility] Comment on above: Performed By: #### C BC ####[facility] [address] [place], [place] [address]FyDr. Yarelis Peñaloza GLYCOHEMOGLOBIN A1Con 2021 ADA RECOMMENDATION SEE BELOW Normal [facility] Comment on above: Result Comment: ADA RECOMMENDED LIMIT 4.0 - 6.0 ADA THERAPEUTIC TARGET < 7.0 ACTION SUGGESTED > 7.0 Performed By: #### A 1C #### [facility] [address] [address] [address] Yarelis Peñaloza Glucose [Mass/Vol] 108 mg/dL Normal [facility] Comment on above: Performed By: #### A 1C #### [facility] [address] [address] [address] Yarelis Peñaloza HbA1c (Bld) [Mass fraction] 5.4 % Normal 4.5-6.2 [facility] Comment on above: Performed By: #### A 1C #### [facility] [address] [address] [address] Yarelis Peñaloza LIPID PROFILEon 01-08-2022 CHOL-HDL RATIO NORM SEE BELOW Normal [facility] Comment on above: Result Comment: 3.3 - 4.4 LOW RISK 4.4 - 7.1 AVERAGE RISK 7.1 - 11.0 MODERATE RISK >11.0 HIGH RISK Performed By: #### L IPID, CMP, URIC #### [facility] [address] [address] [address] Yarelis Peñaloza Cholesterol [Mass/Vol] 174 mg/dL Normal <=200 [facility] Comment on above: Performed By: #### L IPID, CMP, URIC #### [facility] [address] [address] [address] Yarelis Peñaloza Cholesterol in HDL [Mass/Vol] 38 mg/dL Critically low 40-60 [facility] Comment on above: Performed By: #### L IPID, CMP, URIC #### [facility] [address] [address] [address] Yarelis Peñaloza Cholesterol in LDL [Mass/Vol] 111.4 mg/dL Normal [facility] Comment on above: Performed By: #### L IPID, CMP, URIC #### [facility] [address] [address] [address] Yarelis Peñaloza Cholesterol.total/ Cholesterol in HDL [Mass ratio] 4.6 {ratio} Normal [facility] Comment on above: Performed By: #### L IPID, CMP, URIC #### [facility] [address] [address] [address] Yarelis Peñaloza HDL NORMAL > or = 60 mg/dl - LO W CARDIOVASCULAR RISK <40 mg/dl - HIGH CARDIOVASCULAR RISK Normal [facility] Comment on above: Performed By: #### L IPID, CMP, URIC #### [facility] [address] [address] [address] Yarelis Peñaloza LDL CALC NORMAL SEE BELOW Normal [facility] Comment on above: Result Comment: <100 mg/dl OPTIMAL 100 - 129 mg/dl NEAR OR ABOVE OPTIMAL 130 - 159 mg/dl BORDERLINE HIGH 160 - 189 mg/dl HIGH >190 mg/dl VERY HIGH Performed By: #### L IPID, CMP, URIC #### [facility] [address] [address] [address] Yarelis Peñaloza Triglyceride [Mass/Vol] 123 mg/dL Normal <=150 [facility] Comment on above: Performed By: #### L IPID, CMP, URIC #### [facility] [address] [address] [address] Yarelis Peñaloza VLDL CALC 24.6 mg/dL Normal [facility] Comment on above: Performed By: #### L IPID, CMP, URIC #### [facility] [address] [address] [address] Yarelis Peñaloza PROF 14(COMP METB)on 022 Albumin [Mass/Vol] 3.8 g/dL Normal 3.4-5.0 [facility] Comment on above: Performed By: #### L IPID, CMP, URIC #### [facility] [address] [address] [address] Yarelis Peñaloza Albumin/Globulin [Mass ratio] 1.2 {ratio} Normal [facility] Comment on above: Performed By: #### L IPID, CMP, URIC #### [facility] [address] [address] [address] Yarelis Peñaloza ALP [Catalytic activity/Vol] 67 U/L Normal 46-116 [facility] Comment on above: Performed By: #### L IPID, CMP, URIC #### [facility] [address] [place] [address] Dr. Yarelis Peñaloza ALT [Catalytic activity/Vol] 14 U/L Critically low 16-63 [facility] Comment on above: Performed By: #### L IPID, CMP, URIC #### [facility] [address] [place] [address] Dr. Yarelis Peñaloza Anion gap [Moles/Vol] 12.7 mmol/L Normal [facility] Comment on above: Performed By: #### L IPID, CMP, URIC #### [facility] [address] [place] [address] Dr. Yarelis Peñaloza AST [Catalytic activity/Vol] 11 U/L Critically low 15-37 [facility] Comment on above: Performed By: #### L IPID, CMP, URIC #### [facility] [address] [place] [address] Dr. Yarelis Peñaloza Bilirubin [Mass/Vol] 0.7 mg/dL Normal 0.2-1.0 [facility] Comment on above: Performed By: #### L IPID, CMP, URIC #### [facility] [address] [place] [address] Dr. Yarelis Peñaloza Calcium [Mass/Vol] 8.6 mg/dL Normal 8.5-10.1 [facility] Comment on above: Performed By: #### L IPID, CMP, URIC #### [facility] [address] [place] [address] Dr. Yarelis Peñaloza Chloride [Moles/Vol] 103 mmol/L Normal 98-107 [facility] Comment on above: Performed By: #### L IPID, CMP, URIC #### [facility] [address] [address] [address] Yarelis Peñaloza CO2 [Moles/Vol] 26.9 mmol/L Normal 21.0-32.0 [facility] Comment on above: Performed By: #### L IPID, CMP, URIC #### [facility] [address] [address] [address] Yarelis Peñaloza Creatinine [Mass/Vol] 0.97 mg/dL Normal 0.70-1.30 [facility] Comment on above: Performed By: #### L IPID, CMP, URIC #### [facility] [address] [address] [address] Yarelis Peñaloza EGFR-AF BANGLADESHI >60 Normal >=60 [facility] Comment on above: Performed By: #### L IPID, CMP, URIC #### [facility] [address] [place] [address] Dr. Yarelis Peñaloza EGFR-NON AF BANGLADESHI >60 Normal >=60 [facility] Comment on above: Performed By: #### L IPID, CMP, URIC #### [facility] [address] [address] [address] Yarelis Peñaloza Globulin (S) [Mass/Vol] 3.2 g/dL Normal [facility] Comment on above: Performed By: #### L IPID, CMP, URIC #### [facility] [address] [address] [address] Yarelis Peñaloza Glucose [Mass/Vol] 102 mg/dL Normal 74-106 [facility] Comment on above: Performed By: #### L IPID, CMP, URIC #### [facility] [address] [address] [address] Yarelis Peñaloza Potassium [Moles/Vol] 3.6 mmol/L Normal 3.5-5.1 [facility] Comment on above: Performed By: #### L IPID, CMP, URIC #### [facility] [address] [address] [address] Yarelis Peñaloza Protein [Mass/Vol] 7.0 g/dL Normal 6.4-8.2 [facility] Comment on above: Performed By: #### L IPID, CMP, URIC #### [facility] [address] [address] [address] Yarelis Peñaloza Sodium [Moles/Vol] 139 mmol/L Normal 136-145 [facility] Comment on above: Performed By: #### L IPID, CMP, URIC #### [facility] [address] [address] [address] Yarelis Peñaloza Urea nitrogen [Mass/Vol] 17.0 mg/dL Normal 7.0-18.0 [facility] Comment on above: Performed By: #### L IPID, CMP, URIC #### [facility] [address] [address] [address] Yarelis Peñaloza Urea nitrogen/Creatinin e [Mass ratio] 17.5 mg/mg Normal [facility] Comment on above: Performed By: #### L IPID, CMP, URIC #### [facility] [address] [address] [address] Yarelis Peñaloza URIC ACID SERUMon 01-08-2022 Urate [Mass/Vol] 4.8 mg/dL Normal 3.5-7.2 [facility] Comment on above: Performed By: #### L IPID, CMP, URIC #### [facility] [address] [address] [address] Yarelis Peñaloza [place] hepatobiliary w pharmon 0 10-21-2021 [place] [address] Nuclear Medicine Report Signed Patient: Armando Zhu MR#: [id number] 4 : 1955 Acct:[id number] Age/Sex: 65 / M ADM Date: 10/21/21 Loc: [place] Room: Type: [facility] Attending Dr: Kurt Cooper DO Ordering Provider: Kurt Cooper Jr, DO Date of Service: 10/21/21 NM/NM hepatobiliary w pharm: Upper abdominal pain Copies to: Kurt Cooper Jr, DO Marlo Payton II, MD Pamela Sue Cramer, [facility] hepatobiliary w pharm 10/21/2021 8:45 AM [...] Gallbladder ejection fraction is calculated at 58.8%. CA/CA hepatobiliary w pharm IMPRESSION: No evidence of acute cholecystitis. There is a normal gallbladder ejection fraction. Impression dictated by: Marlo Payton M.D.10/21/2021 2:05 PM Dictation Location: [place] [address] Transcribed By: [facility] 10/21/21 1405 Dictated By: Marlo Payton II, MD 10/21/211401 Signed By: 10/21/21 140 [facility] XR HAND RT MIN 3Von 10-11-19 XR [...] by: RHYS THAO Date: 2021-10-10 13:44 Normal [facility] XR CSPINE MIN 4 VIEWSon 07-13 [...] by: KURT KEEN Date: 2021-07-26 14:30 Normal [facility] Vital Signs Date Time Vital Sign Value Performing Clinician Facility 09-05-2023 13:50-0400 Blood Pressure Location [employer] [facility] 09-05-2023 13:50-0400 Diastolic blood pressure 66 mm[Hg] Semaj Tapad [facility] 09-05-2023 13:50-0400 Heart rate 60 /min Semaj Tapad [facility] 09-05-2023 13:50-0400 Respiratory rate 16 /min Semaj Tapad [facility] 09-05-2023 13:50-0400 Systolic blood pressure 118 mm[Hg] Semaj Tapad [facility] 10-13-2021 14:30-0400 Body height 177.8 cm Kurt Cooper Other [employer] [facility] Other 10-13-2021 14:30-0400 Body mass index (BMI) [Ratio] 24.1 kg/m2 Kurt Cooper Other [employer] Other 10-13-2021 14:30-0400 Body weight 76.2 kg Kurt Cooper Other [employer] Other 10-13-2021 14:30-0400 Diastolic blood pressure 74 mm[Hg] Kurt Cooper Other [employer] Other 10-13-2021 14:30-0400 Systolic blood pressure 136 mm[Hg] Kurt Cooper Other [facility] Other 10-07-2021 13:26-0400 Diastolic blood pressure 67 mm[Hg] Hue HERNANDEZAM [facility] 10-07-2021 13:26-0400 Systolic blood pressure 113 mm[Hg] Hue HERNANDEZAM [facility] Encounters Encounter Date Encounter Type Care Provider Facility Start: 10-17-2023 End: 10-17-2023 ambulatory Semaj R NILL Facility: [facility] Start: 10-17-2023 End: 10-17-2023 Patient encounter procedure Semaj R NILL [facility] Start: 09-27-2023 End: 09-27-2023 ambulatory Semaj R NILL Facility: [facility] Start: 09-27-2023 End: 09-27-2023 Patient encounter procedure Semaj R NILL [facility] Start: 09-20-2023 End: 09-20-2023 ambulatory Semaj R NILL Facility:[id number] Start: 09-05-2023 End: 09-05-2023 ambulatory Semaj R NILL Facility: [facility] Start: 09-05-2023 End: 09-05-2023 Patient encounter procedure Semaj R NILL [facility] Start: 07-21-2023 End: 07-21-2023 ambulatory EMMANUEL [facility] Start: 06-20-2023 End: 06-20-2023 ambulatory MARILYN KATZ Facility: [facility] Start: 04-12-2022 End: 04-13-[address] SUSAN BAIN Facility:[facility] Start: 01-08-2022 End: 01-09-2022 ambulatory MARILYN KATZ Facility:[facility] Start: 12-29-2021 End: 12-29-2021 Patient encounter procedure Swann SALAM [facility] Start: 12-01-2021 End: 12-01-2021 ambulatory Kurt Cooper Other [employer] Other Start: 12-01-2021 Telephone encounter Kurt Cooper [facility] Start: 11-09-2021 End: 11-09-2021 ambulatory Kurt Kenneth Other [employer] Other Start: 11-09-2021 Telephone encounter Kurt Cooper [facility] Start: 10-28-2021 End: 10-28-2021 ambulatory Kurt Kenneth Other [employer] Other Start: 10-28-2021 Telephone encounter Kurt Cooper [facility] Start: 10-13-2021 End: 10-13-2021 ambulatory Kurt Cooper Other [employer] Other Start: 10-13-2021 Office outpatient ne w 45 minutes Kurt Dagobertobhavna [facility] Start: 10-10-2021 End: 10-10-2021 ambulatory TWILA FALLON Facility:[facility] Start: 10-07-2021 End: 10-07-2021 Patient encounter procedure Hue HERNANDEZAM [facility] Start: 10-06-2021 ambulatory MARILYN KATZ Facility: [facility] Start: 07-29-2021 End: 08-18-2021 ambulatory MARILYN KATZ Facility:[facility] Start: 07-26-2021 End: 07-27-2021 ambulatory MARILYN KATZ Facility:[facility] Procedures Date Procedure Procedure Detail Performing Clinician Start: 09-20-2023 Repair of left inguinal hernia Semaj NILL Start: 01-08-2022 PSA screening MARILYN DAVID Comment on above: Performed By: #### [facility] #### [facility] [address] [place] [address] Dr. Yarelis Peñaloza Start: 02-17-2021 Esophagogastroduodenoscopy Hue ALMONTE Start: 11-12-2019 Colonoscopy Hue Camilo Tonsillectomy and adenoidectomy Hue HERNANDEZAM Immunizations Immunization Date Immunization Notes Care Provider Fa cili 04-24-2023 influenza virus vaccine, unspecified formulation Semaj GLORIAL [facility] 02-07-2022 SARS-CoV-2 (COVID-19 ) mRNAMUL.[id number] Semaj FAIZANL [facility] 09-27-2021 SARS-CoV-2 mRNA (qwicifcpapa-vloi-wmjdb se) vaccine Semaj GLORIAL [facility] 03-15-2021 influenza virus vaccine, unspecified formulation Hue ALMONTE [facility] 03-09-2021 SARS-CoV-2 (COVID-19 ) mRNA BNT-162b2 vax Semaj GLORIAL [facility] Comment on above: Result Comment: 2023: [id number] 08-18-2020 SARS-CoV-2 (COVID-19 ) mRNA BNT-162b2 vax Semaj DiffbotL [facility] 07-27-2020 SARS-CoV-2 (COVID-19 ) mRNA BNT-162b2 vax Semaj NILL [facility] Payers Date Payer Category Payer Unknown [id number] 2022 Unknown [id number] 2022 Medicare [id number] 1959 Self-pay 1959 Unknown [id number] 2. [id number] 1955 Unknown [id number] 2.16.84 [id number] 1955 Unknown [id number] 2.16.84 [id number] 1955 Unknown [id number] 2.16.84 [id number] 1955 Unknown [id number] 2.16.84 [id number] 1955 Unknown [id number] 2.16.84 [id number] 1957 Unknown [id number] 2.16.84 [id number] 1957 Unknown [id number] 2.16.8 [id number] 1955 Unknown [id number] 2.16.8 [id number] 1955 Unknown [id number] 2.16.8 [id number] 1955 Unknown [id number] 2.16.8 [id number] 1955 Unknown [id number] 2.16.8 [id number] Social History Date Type Detail Facility Start: 10-07-2021 End: 09-05-2023 Tobacco smoking status Ex-smoker (finding) [facility] Tobacco smoking status Never Mitzi [facility] Sex Assigned At Male [facility] Functional Status Date Assessment Result Facility 09-27-2023 Functional Status N/A [facility] 09-05-2023 Functional Status N/A [facility] Clinical Notes 05-21-2021 to 09-27-2023 Note Date & Type Note Facility 09-27-2023 Hospital Discharge instructions Follow Up Care 09/27/2023 14:14:28 With:Semaj SUAREZ MD, SUR Address: [address] [place] [address]- When: only if needed With:Semaj SUAREZ MD, SUR Address: [address] [place] [address]- When: only if needed [facility] 07-21-2023 Note Cardiology Clinic No te Chief [...] risk factor modification (more content not included)... [facility] 07-21-2023 Note New patient here [...] All other systems reviewed and are negative. [facility] 06-20-2023 Note Chief Complaint consultation [...] age 18.0 Years. Stopped age 57 Years. Househ (more content not included)... [facility] Comment on above: Result Comment: Elec tronically Signed By: JEREMY PATEL, Semaj Ford\.br\Date and Time Signed: 06/20/23 19:14 EST 10-13-2021 Evaluation note Encounter Date Diagnosis Assessment Notes Oct, Exocrine pancreatic insufficiency (ICD-10 - K86.81) OBTAIN ALL RECORDS FROM [facility] AND [facility] Oct, Upper abdominal pain (ICD-10 - R10.10) Oct, Irritable bowel syndrome with diarrhea (ICD-10 - K58.0) Oct, Other [employer] Other 02-24-2022 Hospital Discharge instructions Follow Up Care 07/08/2021 15:18:35 With:GAGE PATEL, PATRICIO Swann, [facility] Address: [facility] [address] [place] [address]- When:4 weeks [facility] [id number] Evaluation + Plan note Future Scheduled Tests Laboratory* Pancreatic Elastase, Fecal 05/21/21 * Vitamin D 25 Hydroxy 07/08/21 [facility] Evaluation + Plan note Future Appointments Appointment Date:12/29/2021 08:30:00 AM Scheduled Provider:Hue ALMONTE MD Location:[facility] Appointment Type:[facility] Follow Up Future Scheduled Tests Laboratory* Pancreatic Elastase, Fecal 05/21/21 * Vitamin D 25 Hydroxy 07/08/21 [facility] Evaluation + Plan note Future Appointments Appointment Date:10/11/2023 03:00:00 PM Scheduled Provider:Semaj SUAREZ MD Location:[facility] Appointment Type: Post Op 15 [facility] Other History general Narrative - Reported* Type Description Date Medical History stating Medical History GERD Medical History anxiety/depression Surgical History tonsillectomy Surgical History finger surgery-wood removed [facility] Other Hospital course Narrative No data available for this section [facility] Hospital Discharge instructions No data available for this section [facility] Progress note No data available for this section [facility] Summary Purpose Family History No Family History Records FoundNo Family History Records FoundNo Family History Records Found No data available for this section No data available for this section No data available for this section No Family History Records Found Advance Directives No Advanced Directives Records FoundNo Advanced Directives Records FoundNo Advanced Directives Records FoundNo Advanced Directives Records Found Additional Source Comments (unrecognized sect ion and content) No Status Records FoundNo Status Records FoundNo Status Records FoundNo Status Records Found INFORMATION SOURCE (unrecogn ized section and content) DATE CREATED AUTHOR 10/24/2021 [facility] DATE CREATED AUTHOR AUTHOR'S ORGANIZ ATION 04/16/2022 [facility] DATE CREATED AUTHOR AUTHOR'S ORGANIZ ATION 07/22/2023 [facility] DATE CREATED AUTHOR AUTHOR'S ORGANIZ ATION 10/19/2023 [facility] REASON FOR VISIT (unrecogniz ed section and content) [employer] denialPATIENT HERE AT THE REQUEST OF DR BAIN FOR EXOCRINE PANCREATIC INSUFFICIENCYClinical Acute IllnessREFILL Care Team (unrecognized sect ion and content) Personnel Name: MARILYN KATZ CNP Address: [facility] Personnel Name: MARILYN KATZ CNP Address: Address: [facility] Personnel Name: MARILYN KATZ CNP Address: Address: [address] [place] [address] Personnel Name: MARILYN KATZ CNP Address: Address: [address] [place], [place] [address] FOR RECORDS PERTAINING TO PATIENTS WHO ARE [...] BE BASED ON THE PRIMARY CLINICAL RECORDS. [facility]. provides no warranty or guarantee of the accuracy or completeness of information in this document.
[2024-02-29 07:57] LABS: Basophils Percent Auto 0.3 % (0.2-2.0); Eosinophils Absolute Auto 0.2 10^3/uL (0.0-0.7); Eosinophils Percent Auto 2.1 % (0.9-7.0); Hematocrit 41.5 % (42.0-54.0); Hemoglobin 14.1 g/dL (14.0-18.0); Immature Granulocytes Abs Auto 0.03 10^3/uL (0.00-0.03); Immature Granulocytes Pct Auto 0.3 % (0.0-0.5); Lymphocytes Absolute Auto 1.6 10^3/uL (1.2-3.8); Mean Corpuscular Hemoglobin 33.5 pg (25.9-34.0); Mean Corpuscular Volume 98.6 fL (80.0-94.0); Mean Platelet Volume 9.9 fL (9.5-13.5); Monocytes Absolute Auto 0.5 10^3/uL (0.3-0.8); Monocytes Percent Auto 5.6 % (1.7-12.0); Neutrophils Absolute Auto 7.2 10^3/uL (1.4-6.5); Neutrophils Percent Auto 74.7 % (43.0-75.0); Platelet Count 189 10^3/uL (150-450); Red Blood Count 4.21 10^6/uL (4.70-6.10); Red Cell Distribution Width 12.3 % (11.0-15.0); White Blood Count 9.7 10^3/uL (4.0-11.0)
[2024-02-29 09:59] LABS: Alanine Aminotransferase 16 U/L (16-63); Albumin Globulin Ratio 1.1; Albumin Level 3.4 g/dL (3.4-5.0); Alkaline Phosphatase 55 U/L (46-116); Anion Gap 11.1; Aspartate Amino Transferase 19 U/L (15-37); BUN Creatinine Ratio 13.3; Bilirubin Total 0.5 mg/dL (0.2-1.0); Calcium 8.9 mg/dL (8.5-10.1); Carbon Dioxide 29.2 mmol/L (21.0-32.0); Chloride 106 mmol/L (98-107); Cholesterol 163 mg/dL (<=200); Estimated GFR (African America >60 (>=60 mL/min/1.73m^2); Estimated GFR (Non-African Ame >60 (>=60 mL/min/1.73m^2); Free T3 3.15 pg/mL (2.18-3.98); Globulin 3.1 g/dL; Glucose 89 mg/dL (74-106); HDL Cholesterol 55 mg/dL (40-60); LDL Cholesterol Calculated 88.6 mg/dL; Potassium 4.3 mmol/L (3.5-5.1); Sodium 142 mmol/L (136-145); Total Protein 6.5 g/dL (6.4-8.2); Triglycerides 97 mg/dL (<=150); Uric Acid 4.8 mg/dL (3.5-7.2); VLDL CHOLESTEROL 19.4 mg/dL
[2024-02-29 10:12] LABS: Prostate Specific Antigen Scrn 0.51 ng/mL (<=4.00)
[2024-02-29 10:15] LABS: Estimated Average Glucose 105 mg/dL; Glycohemoglobin A1C 5.3 % (4.5-6.2)
[2024-03-01 08:14] LABS: Insulin 11.5 uIU/mL (2.6-24.9)
== END 2024-02-29 07:28 | disposition home or self-care (01) ==
PROVIDERS: PCP Nurse Practitioner Family; Visit Provider Nurse Practitioner Family
DX: E78.5 Hyperlipidemia, unspecified (principal); R53.83 Other fatigue; R73.09 Other abnormal glucose; I10 Essential (primary) hypertension; M10.9 Gout, unspecified; Z12.12 Encounter for screening for malignant neoplasm of rectum; E03.9 Hypothyroidism, unspecified; Z12.5 Encounter for screening for malignant neoplasm of prostate
CPT/HCPCS: 36415; 80053; 80061; 83036; 83525; 84436; 84443; 84481; 84550; 85025; G0103

== ENCOUNTER 2024-05-03 08:25 | Outpatient (OUT) | payer MEDICARE, OTHER, SELFPAY ==
--- NOTE | 2024-05-03 08:27 | CT_ITS ---
[address] [address] Patient Name: ARMANDO BROOKS MRN: [id number] date: 1955 Sex: M Assigned Patient Location: CT Current Patient Location: Accession/Order Number: [id number] Exam Date: 05/03/2024 08:31 Report Date: 05/04/2024 06:41 At the request of: DON KATZ Procedure: CT lung screening low-dose EXAMINATION: CT lung screening low-dose HISTORY: Former Smoker COMPARISON: No relevant comparison available. TECHNIQUE: Axial, Coronal, and Sagittal images were created without the administration of IV contrast material. Dose reduction techniques were achieved by using automated exposure control and/or adjustment of mA and/or kV according to patient size and/or use of iterative reconstruction technique. FINDINGS: LUNGS: Biapical pleural scarring; stable. Minimal emphysematous changes. No acute infiltrates or suspicious nodules. PLEURA: No mass, effusion, or pneumothorax. VASCULATURE: No abnormality. AUDREY: No mass or pathologic adenopathy. MEDIASTINUM: No mass or pathologic adenopathy. CARDIAC: No enlargement, pericardial thickening, or pericardial effusion. Coronary Artery calcifications: Coronary calcifications are mild. AORTA: No aneurysm or dissection. CHEST WALL: No mass or axillary adenopathy BONES: No bone lesion or fracture. LIMITED ABDOMEN: No suspicious findings. Limited images of the upper abdomen. OTHER: Negative. CT/CT lung screening low-dose IMPRESSION: 1. Lung-RADS Category 1 Negative. No nodules and definitely benign nodules. Continue annual screening with LDCT in 12 months. Electronically authenticated by: BRAVO KHAN Date: 05/04/2024 06:41
--- OUTSIDE RECORDS SUMMARY | 2024-05-03 08:29 | XMS_ITS | CCD ---
Author Organization [facility] Care Team Providers Care Grain Picker Name Role Phone MARILYN KATZ Primary Care [...] 0 Start Date: 01/29/21 Status: Ordered amylase [id number] unt / lipase 70045 unt / protease [id number] unt delayed release oral capsule (4 sources) take 1 capsule by mouth three to four times daily Zenpep [id number] UNIT 1 CAPSULE Orally 3-4 TIMES A [...] 11/26/20 Status: Ordered take 1 tablet by edson every twenty-four hours traZODone HCl 50 MG [...] Start: 01-29-2021 take 1 capsule by mo [facility] once daily venlafaxine 75 [...] (current) drug therapy; Translations: [OTH SENIOR CARE PROVIDER CURRENT DRUG THERAPY] Onset: 10-18-2021 Episodic Other [...] SUAREZ MD, SUR Only if needed [address] [place] [address]- Additional Instructions: Semaj SUAREZ MD, SUR [place] [address]- Additional Instructions: Problem List/Past Medical [...] virus vaccine, inactivated 04/24/2023 Recorded SARS-CoV-2 (COVID-19) mRNAMUL.ORD![id number] 02/07/2022 Recorded SARSCoV2 mRNA(erbautazi-lvqr-sjjlui) vac 09/27/2021 Recorded influenza virus vaccine, inactivated 03/2021 Recorded influenza virus vaccine, inactivated 03/2021 Recorded influenza virus vaccine, inactivated 03/2021 Recorded SARS-CoV-2 (COVID-19) mRNA BNT-162b2 vax 03/09/2021 Recorded 2023-05-31: [id number] SARS-CoV-2 (COVID-19) mRNA BNT-162b2 vax 08/18/2020 Recorded SARS-CoV-2 (COVID-19) mRNA BNT-162b2 vax 07/27/2020 Recorded Normal [facility] Comment on above: Result Comment: [...] EDT With: JEREMY PATEL, Semaj Ford Where: [facility] General Surgery [facility] General Surgery Office/Clini c Noteon 09-27-2023 General [...] virus vaccine, inactivated 04/24/2023 Recorded SARS-CoV-2 (COVID-19) mRNAMUL.ORD![id number] 02/07/2022 Recorded SARSCoV2 mRNA(dzpvrsutf-rbwf-tdmwij) vac 09/27/2021 Recorded influenza virus vaccine, inactivated 03/2021 Recorded influenza virus vaccine, inactivated 03/2021 Recorded influenza virus vaccine, inactivated 03/2021 Recorded SARS-CoV-2 (COVID-19) mRNA BNT-162b2 vax 03/09/2021 Recorded 2023-05-31: [id number] SARS-CoV-2 (COVID-19) mRNA BNT-162b2 vax 08/18/2020 Recorded SARS-CoV-2 (COVID-19) mRNA BNT-162b2 vax 07/27/2020 Recorded Normal [facility] Comment on above: Result Comment: Elec tronically Signed By: JEREMY PATEL, Semaj Ford\.br\Date and Time Signed: 09/27/23 14:16 EDT Operative Reporton Operative Report [id number]#1.00TIFF Normal [facility] Ambulatory Visit Summaryon 0 09-05-2023 Ambulatory [...] us for your care. Normal [facility] General Surgery Office/Clini c Noteon 09-05-2023 [...] virus vaccine, inactivated 04/24/2023 Recorded SARS-CoV-2 (COVID-19) mRNAMUL.ORD![id number] 02/07/2022 Recorded SARSCoV2 mRNA(oetzglgtz-tvog-fmppsk) vac 09/27/2021 Recorded influen (more content not included)... Normal [facility] Comment on above: Result Comment: Elec tronically Signed By: JEREMY PATEL, Semaj Contreras\Date and Time Signed: 09/05/23 14:21 EDT Consultation Noteon 08-01-19 Consultation Note [id number]#1.00TIFF Normal [facility] Office Visiton 07-21-2023 Follow-up visit [id number] Jerome Zhu 1955 M Date Provider Department Center 07/21/2023 3848-EMMANUEL PAULA SUDHEER [place] Family History Problem Relation Age of Onset Other Father Family Status - Relation Status Age at Father Level of Service:30204 IN OFFICE/OUTPATIENT NEW MODERATE MDM 45 MINUTES Normal [facility] ECG 12-Leadon 06-29-2023 ECG 12-Lead [id number]#1.00TIFF Normal [facility] ECG 12-Leadon 06-28-2023 ECG 12-Lead [id number]#1.00TIFF Normal [facility] Consent for Procedure/Surger yon 06-22-2023 Consent for Procedure/Surgery [id number]#1.00TIFF Normal [facility] Ambulatory Visit Summaryon 0 06-20-2023 Ambulatory [...] us for your care. Normal [facility] Facesheeton 06-20-2023 Facesheet [id number]#1.00TIFF Normal [facility] Physician Referralon 024 Physician Referral [id number]#1.00TIFF Normal [facility] CT LUNG CANCER SCREENINGon 06-13-2021 CT [...] BRAVO KHAN Date: 2022-04-13 06:42 Normal [facility] INSULINon 01-10-2022 Insulin 15.8 uIU/mL Normal 2.6-24.9 [facility] Comment on above: Performed By: #### I NSULIN #### [facility] [address] [address] [address] Yarelis Peñaloza CBC AUTO DIFFon 01-08-2022 BASO # 0.0 103/ul Normal 0.0-0.1 [facility] Comment on above: Performed By: #### C BC ####[facility] [address] [address]Dr. Yarelis Peñaloza Basophils/100 WBC (Bld) 0.5 % Normal 0.2-2.0 [facility] Comment on above: Performed By: #### C BC ####[facility] [address] [address]Dr. Yarelis Peñaloza EO # 0.1 103/ul Normal 0.0-0.7 [facility] Comment on above: Performed By: #### C BC ####[facility] [address] [address]Dr. Yarelis Peñaloza Eosinophils/100 WBC (Bld) 1.0 % Normal 0.9-7.0 [facility] Comment on above: Performed By: #### C BC ####[facility] [address] [address]Dr. Yarelis Peñaloza Erythrocyte distribution width (RBC) [Ratio] 11.9 % Normal 11.0-15.0 [facility] Comment on above: Performed By: #### C BC ####[facility] [address] [address]Dr. Yarelis Peñaloza Hematocrit (Bld) [Volume fraction] 42.5 % Normal 42.0-54.0 [facility] Comment on above: Performed By: #### C BC ####[facility] [address] [address]Dr. Yarelis Peñaloza Hemoglobin (Bld) [Mass/Vol] 14.5 g/dL Normal 14.0-18.0 [facility] Comment on above: Performed By: #### C BC ####[facility] [address] [address]Dr. Yarelis Peñaloza IG # 0.04 10e3/ul Critically high 0.00-0.03 [facility] Comment on above: Performed By: #### C BC ####[facility] [address] [place], [place] [address]Dr. Yarelis Peñaloza IG % 0.5 % Normal 0.0-0.5 [facility] Comment on above: Performed By: #### C BC ####[facility] [address] [place], [place] [address]Dr. Yarelis Peñaloza LYMPH # 1.8 103/ul Normal 1.2-3.8 [facility] Comment on above: Performed By: #### C BC ####[facility] [address] [place], [place] [address]Dr. Yarelis Peñaloza Lymphocytes/100 WBC (Bld) 20.7 % Normal 20.5-60.0 [facility] Comment on above: Performed By: #### C BC ####[facility] [address] [place], [place] [address]Dr. Yarelis Peñaloza MANUAL DIFF REQ NO Normal [facility] Comment on above: Performed By: #### C BC ####[facility] [address] [place], [place] [address]Dr. Yarelis Peñaloza MCH (RBC) [Entitic mass] 32.5 pg Normal 25.9-34.0 [facility] Comment on above: Performed By: #### C BC ####[facility] [address] [place], [place] [address]Dr. Yarelis Peñaloza MCHC (RBC) [Mass/Vol] 34.1 g/dL Normal 29.9-35.2 [facility] Comment on above: Performed By: #### C BC ####[facility] [address] [place], [place] [address]Dr. Yarelis Peñaloza MCV (RBC) [Entitic vol] 95.3 fL Critically high 80.0-94.0 [facility] Comment on above: Performed By: #### C BC ####[facility] [address] [place], [place] [address]Dr. Yarelis Peñaloza MONO # 0.6 103/ul Normal 0.3-0.8 [facility] Comment on above: Performed By: #### C BC ####[facility] [address] [place], [place] [address]Dr. Yarelis Peñaloza Monocytes/100 WBC (Bld) 7.1 % Normal 1.7-12.0 [facility] Comment on above: Performed By: #### C BC ####[facility] [address] [place], [place] [address]Dr. Yarelis Peñaloza NEUT # 6.1 103/ul Normal 1.4-6.5 [facility] Comment on above: Performed By: #### C BC ####[facility] [address] [place], [place] [address]Dr. Yarelis Peñaloza Neutrophils/100 WBC (Bld) 70.2 % Normal 43.0-75.0 [facility] Comment on above: Performed By: #### C BC ####[facility] [address] [place], [place] [address]Dr. Yarelis Peñaloza Platelet mean volume (Bld) [Entitic vol] 9.8 fL Normal 9.5-13.5 [facility] Comment on above: Performed By: #### C BC ####[facility] [address] [place], [place] [address]Dr. Yarelis Peñaloza PLT 241 103/ul Normal 150-450 [facility] Comment on above: Performed By: #### C BC ####[facility] [address] [place], [place] [address]Dr. Yarelis Peñaloza RBC 4.46 106/ul Critically low 4.70-6.10 [facility] Comment on above: Performed By: #### C BC ####[facility] [address] [place], [place] [address]WeDr. Yarelis Peñaloza WBC 8.7 103/ul Normal 4.0-11.0 [facility] Comment on above: Performed By: #### C BC ####[facility] [address] [place], [place] [address]RiDr. Yarelis Peñaloza GLYCOHEMOGLOBIN A1Con 2021 ADA RECOMMENDATION SEE BELOW Normal [facility] Comment on above: Result Comment: ADA RECOMMENDED LIMIT 4.0 - 6.0 ADA THERAPEUTIC TARGET < 7.0 ACTION SUGGESTED > 7.0 Performed By: #### A 1C #### [facility] [address] [address] [address] Yarelis Peñaloza Glucose [Mass/Vol] 108 mg/dL Normal [facility] Comment on above: Performed By: #### A 1C #### [facility] [address] [address] [address] Yarelis Peñaloza HbA1c (Bld) [Mass fraction] 5.4 % Normal 4.5-6.2 [facility] Comment on above: Performed By: #### A 1C #### [facility] [address] [address] [address] Yarelis Peñaloza LIPID PROFILEon 01-08-2022 CHOL-HDL RATIO NORM SEE BELOW Normal [facility] Comment on above: Result Comment: 3.3 - 4.4 LOW RISK 4.4 - 7.1 AVERAGE RISK 7.1 - 11.0 MODERATE RISK >11.0 HIGH RISK Performed By: #### L IPID, CMP, URIC #### [facility] [address] [address] [address] Yarelis Peñaloza Cholesterol [Mass/Vol] 174 mg/dL Normal <=200 [facility] Comment on above: Performed By: #### L IPID, CMP, URIC #### [facility] [address] [address] [address] Yarelis Peñaloza Cholesterol in HDL [Mass/Vol] 38 mg/dL Critically low 40-60 [facility] Comment on above: Performed By: #### L IPID, CMP, URIC #### [facility] [address] [address] [address] Yarelis Peñaloza Cholesterol in LDL [Mass/Vol] 111.4 mg/dL Normal [facility] Comment on above: Performed By: #### L IPID, CMP, URIC #### [facility] [address] [address] [address] Yarelis Peñaloza Cholesterol.total/ Cholesterol in HDL [Mass ratio] 4.6 {ratio} Normal [facility] Comment on above: Performed By: #### L IPID, CMP, URIC #### [facility] [address] [address] [address] Yarelis Peñaloza HDL NORMAL > or = 60 mg/dl - LO W CARDIOVASCULAR RISK <40 mg/dl - HIGH CARDIOVASCULAR RISK Normal [facility] Comment on above: Performed By: #### L IPID, CMP, URIC #### [facility] [address] [address] [address] Yarelis Peñaloza LDL CALC NORMAL SEE BELOW Normal [facility] Comment on above: Result Comment: <100 mg/dl OPTIMAL 100 - 129 mg/dl NEAR OR ABOVE OPTIMAL 130 - 159 mg/dl BORDERLINE HIGH 160 - 189 mg/dl HIGH >190 mg/dl VERY HIGH Performed By: #### L IPID, CMP, URIC #### [facility] [address] [address] [address] Yarelis Peñaloza Triglyceride [Mass/Vol] 123 mg/dL Normal <=150 [facility] Comment on above: Performed By: #### L IPID, CMP, URIC #### [facility] [address] [address] [address] Yarelis Peñaloza VLDL CALC 24.6 mg/dL Normal [facility] Comment on above: Performed By: #### L IPID, CMP, URIC #### [facility] [address] [address] [address] Yarelis Peñaloza PROF 14(COMP METB)on 022 Albumin [Mass/Vol] 3.8 g/dL Normal 3.4-5.0 [facility] Comment on above: Performed By: #### L IPID, CMP, URIC #### [facility] [address] [address] [address] Yarelis Peñaloza Albumin/Globulin [Mass ratio] 1.2 {ratio} Normal [facility] Comment on above: Performed By: #### L IPID, CMP, URIC #### [facility] [address] [address] [address] Yarelis Peñaloza ALP [Catalytic activity/Vol] 67 U/L Normal 46-116 [facility] Comment on above: Performed By: #### L IPID, CMP, URIC #### [facility] [address] [place] [address] Dr. Yarelis Peñaloza ALT [Catalytic activity/Vol] 14 U/L Critically low 16-63 [facility] Comment on above: Performed By: #### L IPID, CMP, URIC #### [facility] [address] [place] [address] Dr. Yarelis Peñaloza Anion gap [Moles/Vol] 12.7 mmol/L Normal [facility] Comment on above: Performed By: #### L IPID, CMP, URIC #### [facility] [address] [place] [address] Dr. Yarelis Peñaloza AST [Catalytic activity/Vol] 11 U/L Critically low 15-37 [facility] Comment on above: Performed By: #### L IPID, CMP, URIC #### [facility] [address] [place] [address] Dr. Yarelis Peñaloza Bilirubin [Mass/Vol] 0.7 mg/dL Normal 0.2-1.0 [facility] Comment on above: Performed By: #### L IPID, CMP, URIC #### [facility] [address] [place] [address] Dr. Yarelis Peñaloza Calcium [Mass/Vol] 8.6 mg/dL Normal 8.5-10.1 [facility] Comment on above: Performed By: #### L IPID, CMP, URIC #### [facility] [address] [place] [address] Dr. Yarelis Peñaloza Chloride [Moles/Vol] 103 mmol/L Normal 98-107 [facility] Comment on above: Performed By: #### L IPID, CMP, URIC #### [facility] [address] [address] [address] Yarelis Peñaloza CO2 [Moles/Vol] 26.9 mmol/L Normal 21.0-32.0 [facility] Comment on above: Performed By: #### L IPID, CMP, URIC #### [facility] [address] [address] [address] Yarelis Peñaloza Creatinine [Mass/Vol] 0.97 mg/dL Normal 0.70-1.30 [facility] Comment on above: Performed By: #### L IPID, CMP, URIC #### [facility] [address] [address] [address] Yarelis Peñaloza EGFR-AF [place]IZEN [place] >60 Normal >=60 [facility] Comment on above: Performed By: #### L IPID, CMP, URIC #### [facility] [address] [place] [address] Dr. Yarelis Peñaloza EGFR-NON AF CITIZEN [place] >60 Normal >=60 [facility] Comment on above: Performed By: #### L IPID, CMP, URIC #### [facility] [address] [address] [address] Yarelis Peñaloza Globulin (S) [Mass/Vol] 3.2 g/dL Normal [facility] Comment on above: Performed By: #### L IPID, CMP, URIC #### [facility] [address] [address] [address] Yarelis Peñaloza Glucose [Mass/Vol] 102 mg/dL Normal 74-106 [facility] Comment on above: Performed By: #### L IPID, CMP, URIC #### [facility] [address] [address] [address] Yarelis Peñaloza Potassium [Moles/Vol] 3.6 mmol/L Normal 3.5-5.1 [facility] Comment on above: Performed By: #### L IPID, CMP, URIC #### [facility] [address] [address] [address] Yarelis Peñaloza Protein [Mass/Vol] 7.0 g/dL Normal 6.4-8.2 [facility] Comment on above: Performed By: #### L IPID, CMP, URIC #### [facility] [address] [address] [address] Yarelis Peñaloza Sodium [Moles/Vol] 139 mmol/L Normal 136-145 [facility] Comment on above: Performed By: #### L IPID, CMP, URIC #### [facility] [address] [address] [address] Yarelis Peñaloza Urea nitrogen [Mass/Vol] 17.0 mg/dL Normal 7.0-18.0 [facility] Comment on above: Performed By: #### L IPID, CMP, URIC #### [facility] [address] [address] [address] Yarelis Peñaloza Urea nitrogen/Creatinin e [Mass ratio] 17.5 mg/mg Normal [facility] Comment on above: Performed By: #### L IPID, CMP, URIC #### [facility] [address] [address] [address] Yarelis Peñaloza URIC ACID SERUMon 01-08-2022 Urate [Mass/Vol] 4.8 mg/dL Normal 3.5-7.2 [facility] Comment on above: Performed By: #### L IPID, CMP, URIC #### [facility] [address] [address] [address] Yarelis Peñaloza [place] hepatobiliary w pharmon 0 10-21-2021 [place] [address] Nuclear Medicine Report Signed Patient: Armando Zhu MR#: [id number] 4 : 1955 Acct:[id number] Age/Sex: 65 / M ADM Date: 10/21/21 Loc: CT Room: Type: [facility] Attending Dr: Kurt Cooper DO Ordering Provider: Kurt Cooper Jr, DO Date of Service: 10/21/21 NM/NM hepatobiliary w pharm: Upper abdominal pain Copies to: Kurt Cooper Jr, DO Marlo Payton II, MD Pamela Sue Cramer, [facility] hepatobiliary w pharm 10/21/2021 8:45 [...] Gallbladder ejection fraction is calculated at 58.8%. CT/CT hepatobiliary w pharm IMPRESSION: No evidence of acute cholecystitis. There is a normal gallbladder ejection fraction. Impression dictated by: Marlo Payton M.D.10/21/2021 2:05 PM Dictation Location: [address] [address] Transcribed By: [facility] 10/21/21 1405 Dictated By: Marlo Payton II, MD 10/21/211401 Signed By: 10/21/21 140 [facility] XR HAND RT MIN 3Von [...] by: RHYS THAO Date: 2021-10-10 13:44 Normal [facility] XR CSPINE MIN 4 VIEWSon 07-13 [...] by: KURT KEEN Date: 2021-07-26 14:30 Normal [facility] Vital Signs Date Time Vital Sign Value Performing Clinician Facility 09-05-2023 13:50-0400 Blood Pressure Location [facility] 09-05-2023 13:50-0400 Diastolic blood pressure 66 mm[Hg] Semaj [employer] [facility] 09-05-2023 13:50-0400 Heart rate 60 /min Semaj [facility] 09-05-2023 13:50-0400 Respiratory rate 16 /min Semaj [facility] 09-05-2023 13:50-0400 Systolic blood pressure 118 mm[Hg] Semaj [facility] 10-13-2021 14:30-0400 Body height 177.8 cm Kurt Cooper Other [employer] [facility] [employer] Other 10-13-2021 14:30-0400 Body mass index (BMI) [Ratio] 24.1 kg/m2 Kurt Cooper Other [facility] Other 10-13-2021 14:30-0400 Body weight 76.2 kg Kurt Cooper Other [facility] Other 10-13-2021 14:30-0400 Diastolic blood pressure 74 mm[Hg] Kurt Cooper Other [employer] Other 10-13-2021 14:30-0400 Systolic blood pressure 136 mm[Hg] Kurt Cooper Other [facility] [employer] Other 10-07-2021 13:26-0400 Diastolic blood pressure 67 mm[Hg] Hue HERNANDEZAM [facility] 10-07-2021 13:26-0400 Systolic blood pressure 113 mm[Hg] Hue HERNANDEZAM [facility] Encounters Encounter Date Encounter Type Care Provider Facility Start: 10-17-2023 End: 10-17-2023 ambulatory Semaj R NILL Facility: [facility] Start: 10-17-2023 End: 10-17-2023 Patient encounter procedure Semaj R NILL [facility] Start: 09-27-2023 End: 09-27-2023 ambulatory Semaj R NILL Facility: [facility] Start: 09-27-2023 End: 09-27-2023 Patient encounter procedure Semaj R NILL [facility] Start: 09-20-2023 End: 09-20-2023 ambulatory Semaj R NILL Facility:CD:[id number] Start: 09-05-2023 End: 09-05-2023 ambulatory Semaj R NILL Facility: [facility] Start: 09-05-2023 End: 09-05-2023 Patient encounter procedure Semaj R NILL [facility] Start: 07-21-2023 End: 07-21-2023 ambulatory EMMANUEL [facility] Start: 06-20-2023 End: 06-20-2023 ambulatory MARILYN KATZ Facility: [facility] Start: 04-12-2022 End: 04-13-[address] SUSAN BAIN Facility:[facility] Start: 01-08-2022 End: 01-09-2022 ambulatory MARILYN KATZ Facility:[facility] Start: 12-29-2021 End: 12-29-2021 Patient encounter procedure Swann SALAM [facility] Start: 12-01-2021 End: 12-01-2021 ambulatory Kurt Cooper Other [facility] Other Start: 12-01-2021 Telephone encounter Kurt Cooper [facility] Start: 11-09-2021 End: 11-09-2021 ambulatory Kurt Kenneth Other [facility] Other Start: 11-09-2021 Telephone encounter Kurt Cooper [facility] Start: 10-28-2021 End: 10-28-2021 ambulatory Kurt Kenneth Other [facility] Other Start: 10-28-2021 Telephone encounter Kurt Cooper [facility] Start: 10-13-2021 End: 10-13-2021 ambulatory Kurt Cooper Other [facility] Other Start: 10-13-2021 Office outpatient ne w 45 minutes Kurt Dagobertobhavna [facility] Start: 10-10-2021 End: 10-10-2021 ambulatory TWILA FALLON Facility:[facility] Start: 10-07-2021 End: 10-07-2021 Patient encounter procedure Hue HERNANDEZAM [facility] Start: 10-06-2021 ambulatory MARILYN KATZ Facility: [facility] Start: 07-29-2021 End: 08-18-2021 ambulatory MARILYN KATZ Facility:[facility] Start: 07-26-2021 End: 07-27-2021 ambulatory MARILYN KATZ Facility:[facility] Procedures Date Procedure Procedure Detail Performing Clinician Start: 09-20-2023 Repair of left inguinal hernia Semaj NILL Start: 01-08-2022 PSA screening MARILYN DAVID Comment on above: Performed By: #### P [facility] #### [facility] [address] [place] [address] Dr. Yarelis Peñaloza Start: 02-17-2021 Esophagogastroduodenoscopy Hue ALMONTE Start: 11-12-2019 Colonoscopy Hue Camilo Tonsillectomy and adenoidectomy Hue HERNANDEZAM Immunizations Immunization Date Immunization Notes Care Provider Fa cili 04-24-2023 influenza virus vaccine, unspecified formulation Semaj GLORIAL [facility] 02-07-2022 SARS-CoV-2 (COVID-19 ) mRNAMUL.ORD![id number] Semaj FAIZANL [facility] 09-27-2021 SARS-CoV-2 mRNA (qncenzurpxc-tisp-qyuwh se) vaccine Semaj GLORIAL [facility] 03-15-2021 influenza virus vaccine, unspecified formulation Hue ALMONTE [facility] 03-09-2021 SARS-CoV-2 (COVID-19 ) mRNA BNT-162b2 vax Semaj [facility] Comment on above: Result Comment: 2023: [id number] 08-18-2020 SARS-CoV-2 (COVID-19 ) mRNA BNT-162b2 vax Semaj [employer] [facility] 07-27-2020 SARS-CoV-2 (COVID-19 ) mRNA BNT-162b2 vax Semaj NILL [facility] Payers Date Payer Category Payer Unknown [id number] 2022 Unknown [id number] 2022 Medicare [id number] 1957 Self-pay 1957 Unknown [id number] 2. [id number] 1955 Unknown [id number] 2.16.84 [id number] 1955 Unknown [id number] 2.16.84 0.1.592908.3.579.2.593 1955 Unknown [id number] 2.16.84 0.1.763698.3.579.2.593 1955 Unknown [id number] 2.16.84 0.1.110143.3.579.2.593 1955 Unknown [id number] 2.16.84 0.1.296815.3.579.2.593 1955 Unknown [id number] 2.16.84 0.1.581852.3.579.2.593 1955 Unknown [id number] 2.16.8 40.1.654232.3.579.2.727 1955 Unknown [id number] 2.16.8 40.1.913002.3.579.2.727 1955 Unknown [id number] 2.16.8 40.1.903862.3.579.2.727 1955 Unknown [id number] 2.16.8 40.1.679764.3.579.2.727 1955 Unknown [id number] 2.16.8 40.1.699828.3.579.2.727 Social History Date Type Detail Facility Start: 10-07-2021 End: 09-05-2023 Tobacco smoking status Ex-smoker (finding) [facility] Tobacco smoking status Never Mitzi [facility] Sex Assigned At Male [facility] Functional Status Date Assessment Result Facility 09-27-2023 Functional Status N/A [facility] 09-05-2023 Functional Status N/A [facility] Clinical Notes 05-21-2021 to 09-27-2023 Note Date & Type Note Facility 09-27-2023 Hospital Discharge instructions Follow Up Care 09/27/2023 14:14:28 With:Semaj SUAREZ MD, SUR Address: [address] [place] [address]- When: only if needed With:Semaj SUAREZ MD, SUR Address: [address] [place] [phone]- When: only if needed [facility] 07-21-2023 Note Cardiology Clinic No te Chief [...] risk factor modification (more content not included)... [facility] 07-21-2023 Note New patient here to establish [...] All other systems reviewed and are negative. [facility] 06-20-2023 Note Chief Complaint consultation for left [...] 57 Years. Househ (more content not included)... [facility] Comment on above: Result Comment: Elec tronically Signed By: JEREMY PATEL, Semaj Ford\.br\Date and Time Signed: 06/20/23 19:14 EST 10-13-2021 Evaluation note Encounter Date Diagnosis Assessment Notes Oct, Exocrine pancreatic insufficiency (ICD-10 - K86.81) OBTAIN ALL RECORDS FROM [facility] Oct, Upper abdominal pain (ICD-10 - R10.10) Oct, Irritable bowel syndrome with diarrhea (ICD-10 - K58.0) Oct, Other STOP OMEPRAZOLE [employer] Other 02-24-2022 Hospital Discharge instructions Follow Up Care 07/08/2021 15:18:35 With:GAGE PATEL, PATRICIO Swann, [facility] Address: [facility] [address] [place] [address]- When:4 weeks [facility] [phone] Evaluation + Plan note Future Scheduled Tests Laboratory* Pancreatic Elastase, Fecal 05/21/21 * Vitamin D 25 Hydroxy 07/08/21 [facility] Evaluation + Plan note Future Appointments Appointment Date:12/29/2021 08:30:00 AM Scheduled Provider:Hue ALMONTE MD Location:[facility] Appointment Type:[facility] Follow Up Future Scheduled Tests Laboratory* Pancreatic Elastase, Fecal 05/21/21 * Vitamin D 25 Hydroxy 07/08/21 [facility] Evaluation + Plan note Future Appointments Appointment Date:10/11/2023 03:00:00 PM Scheduled Provider:Semaj SUAREZ MD Location:[facility] Appointment Type: Post Op [facility] General Surgery [place] Evaluation noteNo InformationNortUPMC [facility] The [facility] Other History general Narrative - Reported* Type Description Date Medical History stating Medical History GERD Medical History anxiety/depression Surgical History tonsillectomy Surgical History finger surgery-wood removed [facility] Score The Board Other Hospital course Narrative No data available for this section [facility] Hospital Discharge instructions No data available for this section [facility] Progress note No data available for this section [facility] Summary Purpose Family History No Family [...] section and content) DATE CREATED AUTHOR 10/24/[address] [facility] DATE CREATED AUTHOR AUTHOR'S ORGANIZ ATION 04/16/2022 [facility] DATE CREATED AUTHOR AUTHOR'S ORGANIZ ATION 07/22/2023 [facility] DATE CREATED AUTHOR AUTHOR'S ORGANIZ ATION 10/19/2023 [facility] REASON FOR VISIT (unrecogniz ed section and content) Librax denialPATIENT HERE AT THE REQUEST OF DR BAIN FOR EXOCRINE PANCREATIC INSUFFICIENCYClinical Acute IllnessREFILL Care Team (unrecognized sect ion and content) Personnel Name: MARILYN KATZ CNP Address: [facility] Personnel Name: MARILYN KATZ CNP Address: Address: [facility] Personnel Name: MARILYN KATZ CNP Address: Address: [address] [place] [address] Personnel Name: MARILYN KATZ CNP Address: Address: [address] [place], [place] [address] FOR RECORDS PERTAINING TO PATIENTS WHO [...] BE BASED ON THE PRIMARY CLINICAL RECORDS. [facility]. provides no warranty or guarantee of the accuracy or completeness of information in this document.
== END 2024-05-03 08:26 | disposition home or self-care (01) ==
LOC: CT 08:25
PROVIDERS: PCP Nurse Practitioner Family; Visit Provider Nurse Practitioner Family
DX: Z87.891 Personal history of nicotine dependence (principal)
CPT/HCPCS: 71271

== ENCOUNTER 2025-05-05 08:02 | Outpatient (OUT) | payer MEDICARE, OTHER, SELFPAY ==
--- OUTSIDE RECORDS SUMMARY | 2025-04-22 11:17 | XMS_ITS ---
Author Organization The [facility] in [place] Address [address] [place] [address] Care Team Providers Care Shipbuilding Draftsperson Name Role Phone Marilyn Carlson Primary Care Provider REASON FOR VISIT due for CT Encounters Encounter Location Date Provider Diagnosis [facility] [address] [place] [address] 04/22/2025 Marilyn Carlson Former smoker Z87.891 Assessments Encounter Date Diagnosis (ICD Code) Assessment Notes Treatment Notes Treatment Clinical Notes Section Notes 04/22/2025 Former smoker (ICD-10 - Z87.891) Plan Of Treatment Pending Test Test Name Order Date CT LUNG CANCER SCREENING 04/22/2025 Next Appt Details Provider Name:Marilyn dorado, 09/16/2025 08:30:00 AM, [address] [place], [address], Progress Notes * Lobo ZHU RDOB:[birth year] (69 yo M)Acc No.[id number]:04/22/2025 Patient:?Lobo ZHU :1955???Age:69 Y???Sex:MalePhone:[phone] Address:[address] [place] [address] Subjective: * Chief Complaints: * d ue for CT * Medical History: * Surgical History: * Hospitalization/Major Diagno stic Procedure: * Medications: Objective: * Vitals: * Physical Examination: ??? Assessment: * Assessment: 1.?Former smoker - Z87.891 (Primary)??? Plan: * Treatment: ?Imaging: CT LUNG CANCER SCREENING * Procedure Codes: * true * Date:?Generated for Printing/Faxing/eTransmitting on:?05/05/2025 08:07 AM EST
--- OUTSIDE RECORDS SUMMARY | 2025-05-05 08:08 | XMS_ITS | Patient Health Record ---
Author Organization The [facility] in [place] Address [address] [place] [address] Care Team Providers Care Privacy Director Name Role Phone Marilyn Carlson Primary Care Provider Allergies No Known Allergies Reason For Referral No Information Medications Medication SIG (Take, Route, Frequency, Duration) Notes Start Date End Date Status Escitalopram Oxalate 20 MG TAKE 1 TABLET BY MOUT H EVERY DAY; Duration: 90 ActiveHyoscyamine Sulfate ER 0.375 MGTAKE 1 TABLET BY MOUTH EVERY 12 HOURS FOR 30 DAYS; Duration: 90ActiveDiclofenac Sodium 75 MGTAKE 1 TABLET BY MOUTH TWICE A DAY NEEDED FOR 30 DAYS; Duration: 30ActivetraZODone HCl 50 MGTAKE 1 TABLET BY MOUTH EVERY DAY AT BEDTIME NEEDED; Duration: 90ActiveALPRAZolam 0.5 MG1 tablet Orally daily as needed; Duration: 30 days5ActiveLovastatin 40 MG TAKE 1 TABLET BY MOUTH EVERY DAY WITH EVENING MEAL; Duration: 90Active Immunizations Vaccine Route Administration Date Status Comme nts Flu, Flucelvax (7686-0825) ( 72045) 6 mos and older, single-dose syringe Unknown 03/01/2022 Administered Flu, FluLaval (1988-2561) (67170) 6mo+, single-dose eysogtyAojoifu09/26/2019 ZjwhetsxmzsoFQFV-MAJ-3 (COVID 19 Pfizer 30mcg/0.3mL)Zqzhcug1007/27/2020 GkrahfrkrcguHLRS-WAR-5 (COVID 19 Pfizer 30mcg/0.3mL)Vbiwrsd8908/18/2020 IuhztcrnrfpcLOLA-DKY-9 (COVID 19 Pfizer 30mcg/0.3mL)Sbqqrpt3403/09/2021 BezmhxbopgmxEUZN-DXS-4 (COVID 19 Pfizer 30mcg/0.3mL), clinton sucroseUnknown 09/27/20217616UaxivzwqjiakKLZE-YMH-0 (COVID 19) bivalent 30 mcg/0.3 ml doseUnknown 02/07/2022dministeredShingrix (Zoster)Emvkdhk0811/07/2022dministeredShingrix (Zoster)Cjtkiut7903/11/2023dministered Social History Tobacco Use: Social History Observation Description Date Details (start date - stop date) Former Smoker 05/15/1987 - 05/15/2020 Tobacco Use/Smoking Question Answer Notes Patient is a former smoker When did you start smoking?05/15/1987When did you stop smoking?05/15/2020 Additional Findings: Tobacco Non-UserCurrent non-smokerAlcohol Screen (Audit-C) Question Answer Notes Did you have a drink containing alcohol in the p ast year? Yes How often did you have 6 or more drinks on one occasion in the past year?Never (0 point)How many drinks did you have on a typical day when you were drinking in the past year?1 or 2 drinks (0 point)How often did you have a drink containing alcohol in the past year?Less than monthly (1 point)Agaony2Fzimwwihclcqak NegativeAUDIT-C (Standard) Question Answer Notes Did you have a drink containing alcohol in the p ast year? No Ljzwve7RnkouscenczfifWcvxavyh Problems Problem Type SNOMED Code ICD Code Onset Dates Problem Status W/U Status Risk Notes Problem Atrial tachycardia (190440565) Atrial tac hycardia (427.89) ActiveconfirmedProblemBacterial enteritis (39409377)Bacterial intestinal infection, unspecified (A04.9)ActiveconfirmedProblemIrritable bowel syndrome with diarrhea (634934814)Irritable bowel syndrome with diarrhea (K58.0)Active confirmedProblemSnoring (99667335)Snoring (R06.83)ActiveconfirmedProblemAbnormal feces (137994199)Other fecal abnormalities (R19.5)ActiveconfirmedProblem Hyperlipidemia (45783516)Hyperlipidemia (E78.5)ActiveconfirmedProblemNeck pain (33487549)Neck pain (M54.2)ActiveconfirmedProblemArthritis (2269368)Arthritis (M19.90)ActiveconfirmedProblemInsomnia (500878217)Insomnia (G47.00)Active confirmedProblemDiverticular disease of colon (573039504)Diverticulosis (K57.90) ActiveconfirmedProblemWeight loss (236419272)Weight loss (R63.4)Activeconfirmed ProblemHistory of polyp of colon (situation) (183600484)History of colon polyps (Z86.010)ActiveconfirmedProblemFormer smoker (1481968)Former smoker (Z87.891) ActiveconfirmedProblemMultiple pulmonary nodules (679752046)Multiple pulmonary nodules (R91.8)ActiveconfirmedProblemDecrease in appetite (finding) (09583407) Decreased appetite (R63.0)ActiveconfirmedProblemAnnual wellness visit (453571602294139)Wellness examination (Z00.00)ActiveconfirmedProblemEmphysema (95571964)Emphysema (J43.9)ActiveconfirmedProblemGastro-esophageal reflux disease (520262698)Gastro-esophageal reflux disease (K21.9)Activeconfirmed ProblemExocrine pancreatic insufficiency (83637604)Exocrine pancreatic insufficiency (K86.81)ActiveconfirmedProblemCutaneous cyst (455761285)Cutaneous cyst (L72.9)ActiveconfirmedProblemMixed anxiety and depressive disorder (501172317)Anxiety and depression (F41.8)Activeconfirmed Vital Signs Blood pressure diastolic 78 mm Hg 03/17/2025 Mktpfo09 in03/17/2025lood pressure ktyepoxd107 mm Hg03/17/20258796Ukwxyw023.6 lbs 03/17/2025BMI21.32 kg/m203/17/2025 Encounters Encounter Location Date Provider Diagnosis [facility] [address] [place] [address] 05/06/2024 Marilyn Carlson [facility] [place] [address] 06/24/2024Pamela CramerAnxiety and depression F41.8[facility] [facility] [place] [place] [address]/09/2024Pamela Aldo Arthritis M19.90 and Anxiety and depression F41.8[facility] [place] [address] [facility]], [place] [address]/Pamela CramerAnxiety and depression F41.8BV[facility] [facility] [place] [place] [address]/Pamela CramerBuF[facility] [facility]], [place] [address]/01/2025Pamela CramerFormer smoker Z87.891B[facility]. [facility] ([place] [place] [facility]], [place] [address]/09/2024 Marilyn CramerAnxiety and depression F41.8 and Arthritis M19.90[facility] [facility]], [place] [address]/07/2024Pamela CramerAnxiety and depression F41.8 and Hyperlipidemia E78.5 Assessments Encounter Date Diagnosis (ICD Code) Assessment Notes Treatment Notes Treatment Clinical Notes Section Notes 06/24/2024 Anxiety and depression (ICD-10 - F41.8) 09/16/2024rthritis (ICD-10 - M19.90)09/16/2024nxiety and depression (ICD-10 - F41.8) continue lexapro xanax helps CSA signed OARRS revewiewed 6m fu 09/16/2024rthritis (ICD-10 - M19.90) trial of diclofenac try OTC creams as needed 03/17/2025nxiety and depression (ICD-10 - F41.8)CSA signed, OARRS reviewed 12/02/2024nxiety and depression (ICD-10 - F41.8)04/22/2025Former smoker (ICD-10 - Z87.891)03/17/2025Hyperlipidemia (ICD-10 - E78.5)09/16/2024nxiety and depression (ICD-10 - F41.8)09/16/2024Othercontinue monitor wt, add calories, protein Plan Of Treatment Pending Test Test Name Order Date CMP (COMPLETE METABOLIC PANEL) 3 CMP (COMPLETE METABOLIC PANEL) 4 HEMOGLOBIN A1C (GLYCO) 02/21/2024 HEMOGLOBIN A1C (GLYCO) 12/23/2022 HEMOGLOBIN A1C (GLYCO) 03/17/2025 INSULIN, TOTAL 03/17/2025 INSULIN, TOTAL 12/23/2022 INSULIN, TOTAL 02/21/2024 LIPID PANEL (CHOL/TRIG/HDL/LDL) 02/21/20 24 LIPID PANEL (CHOL/TRIG/HDL/LDL) 03/17/20 25 LIPID PANEL (CHOL/TRIG/HDL/LDL) 12/24/19 23 CBC WITH DIFF (EXP 03/2025) 12/23/2022 CBC WITH DIFF (EXP 03/2025) 02/21/2024 PSA, PROSTATE-SPECIFIC ANTIGEN 3 URIC ACID 12/23/2022 URIC ACID 03/17/2025 URIC ACID 02/21/2024 PSA, TOTAL 02/21/2024 STOOL OCCULT BLOOD 02/21/2024 STOOL OCCULT BLOOD 12/23/2022 ECHOCARDIO M or 2D COMPLETE 06/29/2023 THYROID PANEL (T4/TSH/FREE T3) 4 THYROID PANEL (T4/TSH/FREE T3) 3 THYROID PANEL (T4/TSH/FREE T3) 5 CT LUNG CANCER SCREENING 04/22/2025 Holter Monitor - 3 days up to 14 days PSA, SCREENING 03/17/2025 CMP (COMP MET WHEELER) w/eGFR CKD-EPI 2024 CBC WITH DIFF 03/17/2025 Next Appt Details Provider Name:Marilyn dorado, 09/16/2025 08:30:00 AM, [address] [facility] [address], [place], [address], Insurance Providers Payer Name Payer Address Payer Phone Subscriber Number Group Number Insured Name Patient Relationship to Insured Coverage Start Date Coverage End Date [place]IC[place] [address] [place] [address] [id number] Jerome ZhuJoeelf - patient is the [id number] 2022[employer] OF [address] 8 MEDICARE SUPP [facility] [place] [id number] Arlette Zhu - patient is the [id number] 2022 Medical (General) History Medical History History ICD Code Irritable bowel syndrome with diarrhea K 58.0 Snoring R06.83 History of colon polyps Z86.010 Diverticulosis K57.90 Gastro-esophageal reflux disease K21.9 Neck pain M54.2 Exocrine pancreatic insufficiency K86.81 Bacterial intestinal infection, unspecif ied A04.9 Multiple pulmonary nodules R91.8 Emphysema J43.9 Former smoker Z87.891 Decreased appetite R63.0 Weight loss R63.4 Cutaneous cyst L72.9 Wellness examination Z00.00 Insomnia G47.00 Hyperlipidemia E78.5 Anxiety and depression F41.8 Surgical History Surgery Date(Month/Year) TONSILLECTOMY,OVER 12 YRS Skin cancer spots removed- multiple timeslower left groin hernia repair with mesh5-9-24
--- OUTSIDE RECORDS SUMMARY | 2025-05-05 08:08 | XMS_ITS | Clinical Summary ---
Author Organization [facility] Address [address] [address] Care Team Providers Care After School Counselor Name Role Phone Marilyn Carlson DAKOTAH Primary Care Provider [phone] Allergies No known active allergies Medications MedicationSigDispense QuantityRefillsLast FilledStart DateEnd DateStatus lovastatin (Mevacor) 40 mg tablet TAKE 1 TABLET BY MOUTH EVERY DAY WITH EVENING MEAL05/27/2023ctive hyoscyamine ER (Levbid) 0.375 mg 12 hr tablet Take 0.375 mg by mouth every 12 (twelve) hours if needed.Active traZODone (Desyrel) 50 mg tablet TAKE 1 TABLET BY MOUTH EVERY DAY AT BEDTIME ICQHQW1803/20/2023ctive escitalopram (Lexapro) 20 mg tablet Take 20 mg by mouth in the morning.03/20/2023ctive ALPRAZolam (Xanax) 0.5 mg tablet Take 0.5 mg by mouth if needed each day.Active diclofenac (Voltaren) 75 mg EC tablet Take 75 mg by mouth two times daily.Active Active Problems ProblemNoted DateDiagnosed DateAbnormal feces03/11/20255393Vtonttyc21/28/2025 Bacterial intestinal infection, lwzuiadlqzt20/28/2025utaneous cyst03/11/2025 Exocrine pancreatic hgaqvmlpymbfh19/28/2025Former hyyagz2503/11/2025 Gastroesophageal reflux sftbufr6403/11/2025History of colonic obuinn0903/11/2025Neck pain03/11/20254168Vwijyzx83/28/2025Weight loss03/11/20253857Yufstqqqfvx78/10/2025hronic superficial oysqgfdve07/10/2025Diverticular disease of colon07/22/2024Early nlwkfyl8607/22/2024Emphysema lung07/22/2024Epidermoid cyst of neck07/22/2024 Epigastric pain07/22/2024Infected sebaceous cyst07/22/2024Irritable bowel syndrome with uilixvch55/10/2025Multiple nodules of lung07/22/2024Night sweats 07/22/2024Reducible left inguinal jaxhie6307/22/2024Need for immunization against itrfixspn37rthritis, multiple joint goxohqltikq96/29/2019 07/21/2023Generalized anxiety uxruhhbl48Major depressive disorder in full koztafqkt35Mixed cpydadmxiqxwyp39/27/2018 07/21/2023Encounter for screening lxrmjkwdgyl61nxiety alcaneal spur, leftInsomnia02/27/2017 07/21/2023Tendonitis, Achilles, left Encounters DateTypeDepartmentCare FphrOlxqmesrlwz73/28/2025 10:00 AM EDTOffice Visit [facility] [place] [address] [place] [address] Bud Goodwin MD Paroxysmal atrial tachycardia (Primary Dx)from Last 3 Months Family History Medical HistoryRelationNameCommentspacemakerFatherRelationNameStatusComments FatherAliveMotherDeceased Social History Tobacco UseTypesPacks/DayYears UsedDateSmoking Tobacco: FormerCigarettes Smokeless Tobacco: NeverAlcohol UseStandard Drinks/WeekCommentsNever0 (1 standard drink = 0.6 oz pure alcohol)UT Safety & EnvironmentAnswerDate Recorded Fear of Current or Ex-PartnerNot on file07/18/2023Emotionally AbusedNot on file 07/18/2023hysically AbusedNot on file07/18/2023Sexually AbusedNot on file 07/18/2023hysically or Sexually AbusedNot on file07/18/2023Sex and Gender InformationValueDate RecordedSex Assigned at OflfcAavy78/01/2025 2:12 PM EDT Legal RmbVrkg2607/18/2023 9:20 AM ESTGender CrreruiyQcuh89/01/2025 2:12 PM EDT Sexual OrientationHeterosexual or Mrgantzj28/01/2025 2:12 PM EDT Last Filed Vital Signs Vital SignReadingTime TakenCommentsBlood Rxolablb93/561 10:17 AM EDT Uwmig348103/11/2025 10:17 AM EDTTemperature--Respiratory Rate--Oxygen Saturation 98%03/11/2025 10:17 AM EDTInhaled Oxygen Concentration--Utwcsb62.2 kg (146 lb) 03/11/2025 10:17 AM ZSZAcrxlz579.8 cm (5' 10 )03/11/2025 10:17 AM EDTBody Mass Index20.9503/11/2025 10:17 AM EDT Plan of Treatment Health MaintenanceDue DateLast DoneCommentsCT Ihcdnbavfznj73/24/1958FIT-DNA 1955FIT1955FOBT1955Medicare Annual Wellness (AWV)1955 Cjqrybmdiquyn75/24/1958Depression Iojuxxbln07/24/1970Pneumococcal Vaccine: 50+ Years (1 of 2 - PCV)1976Adult Nrvhqcu6212/06/1979Fall Risk Screening 2022OVID-19 Vaccine ( season), 04/24/2023, 02/07/2022, Additional history existsInfluenza Vaccine (#1), 04/24/2023, 03/01/2022, Additional history fsojhtSfwrfvtngki33/16/2030 11/28/2019, 11/12/2019Colorectal Cancer Ntmkkukpd90/16/2030Zoster Vaccines Enbvbyrcr10/28/2023, 11/07/2022HIB VaccinesAged OutNo longer eligible based on patient's age to complete this topicHPV VaccinesAged OutNo longer eligible based on patient's age to complete this topicIPV VaccinesAged OutNo longer eligible based on patient's age to complete this topicMeningococcal B VaccineAged OutNo longer eligible based on patient's age to complete this topicMeningococcal VaccineAged OutNo longer eligible based on patient's age to complete this topic Rotavirus VaccinesAged OutNo longer eligible based on patient's age to complete this topic Insurance * Guarantor: Lobo Zhu TypeRelation to PatientDate of BirthPhone Billing AddressPersonal/IosjldNnlp50/[birth year][address] [address] Care Teams Team MemberRelationshipSpecialtyStart DateEnd Date Marilyn Carlson CNP [facility] [facility] [place] [address] PCP - GeneralFamily Medicine07/20/23
--- OUTSIDE RECORDS SUMMARY | 2025-05-05 08:08 | XMS_ITS | Clinical Summary ---
Author Organization [facility] Address [address] [facility], [address] [place] [address] Care Team Providers Care Realtime Reporter Name Role Phone Carlos Moreno DO Primary Care Provider Unavail able Social History Tobacco UseTypesPacks/DayYears UsedDateSmoking Tobacco: Never AssessedSex and Gender InformationValueDate RecordedSex Assigned at BirthNot on fileLegal Sex Male06/27/2012 12:52 AM ESTGender IdentityNot on fileSexual OrientationNot on file Plan of Treatment Not on file Care Teams Team MemberRelationshipSpecialtyStart DateEnd Date Carlos Moreno DO PCP - [facility]02/03/12
--- NOTE | 2025-05-05 08:12 | CT_ITS ---
The [address] [address] Patient Name: ARMANDO BROOKS MRN: [id number] date: 1955 Sex: M Assigned Patient Location: CT Current Patient Location: CT Accession/Order Number: [id number] Exam Date: 05/05/2025 08:25 Report Date: 05/05/2025 10:17 At the request of: DON KATZ Procedure: CT lung screening low-dose LOW-DOSE SCREENING CHEST CT WITHOUT CONTRAST COMPARISON: 05/03/2024 CLINICAL DATA: Former smoker with 40 pack year history. Spiral axial unenhanced low-dose images were obtained through the chest. This CT exam was performed using one or more following dose reduction techniques: Automated exposure control, adjustment of the mA and/or kV according to patient size, or use of iterative reconstruction technique. The heart is within normal limits for size. No pericardial effusion is present. Coronary artery disease is seen. There is no aortic aneurysm. Minor plaque is visualized at the aortic arch. No enlarged lymph nodes are seen. There is subtle dextroscoliotic curvature and tiny endplate spurs. There is obstructive lung disease with airspace lucencies and subpleural blebs. Similar apical scarring is again noted. There is minor atelectasis at the right posterior costophrenic angle that is new. No additional consolidation, pleural effusion or pneumothorax is identified. Nodularity is again visualized along the major fissure on the right that may be intrapulmonary lymph nodes. No additional nodularity is seen. Limited imaging through the upper abdomen shows no contributory findings. CT/CT lung screening low-dose IMPRESSION: OBSTRUCTIVE LUNG DISEASE WITH ATELECTASIS AND SCARRING. NO DEVELOPING NODULARITY. Low-dose category 1 - negative Twelve-month low-dose CT follow-up suggested Impression dictated by: Lanny Aguilar M.D. 05/05/2025 10:17 AM Dictation Location: [facility] CENTERDxUpClose Electronically authenticated by: [id number] Y Date: 05/05/2025 10:17
[2025-05-05 08:42] LABS: Hematocrit 39.4 % (42.0-54.0); Hemoglobin 13.1 g/dL (14.0-18.0); Immature Granulocytes Abs Auto 0.03 10^3/uL (0.00-0.03); Immature Granulocytes Pct Auto 0.4 % (0.0-0.5); Lymphocytes Absolute Auto 1.8 10^3/uL (1.2-3.8); Mean Corpuscular HGB Conc 33.2 g/dL (29.9-35.2); Mean Corpuscular Hemoglobin 32.9 pg (25.9-34.0); Mean Corpuscular Volume 99.0 fL (80.0-94.0); Platelet Count 189 10^3/uL (150-450); Red Blood Count 3.98 10^6/uL (4.70-6.10); White Blood Count 7.4 10^3/uL (4.0-11.0)
[2025-05-05 09:24] LABS: Alanine Aminotransferase 33 U/L (16-63); Albumin Globulin Ratio 1.0; Albumin Level 3.2 g/dL (3.4-5.0); Alkaline Phosphatase 56 U/L (46-116); Anion Gap 9.3; Aspartate Amino Transferase 18 U/L (15-37); Blood Urea Nitrogen 16.0 mg/dL (7.0-18.0); Calcium 8.5 mg/dL (8.5-10.1); Carbon Dioxide 31.3 mmol/L (21.0-32.0); Chloride 107 mmol/L (98-107); Cholesterol 147 mg/dL (<=200); Estimated GFR (African America >60 (>=60 mL/min/1.73m^2); Estimated GFR (Non-African Ame >60 (>=60 mL/min/1.73m^2); Free T3 1.78 pg/mL (2.18-3.98); Globulin 3.1 g/dL; Glucose 91 mg/dL (74-106); HDL Cholesterol 38 mg/dL (40-60); Potassium 4.6 mmol/L (3.5-5.1); Sodium 143 mmol/L (136-145); Thyroid Stimulating Hormone 1.140 uIU/mL (0.358-3.740); Total Protein 6.3 g/dL (6.4-8.2); Triglycerides 82 mg/dL (<=150); Uric Acid 3.9 mg/dL (3.5-7.2); VLDL CHOLESTEROL 16.4 mg/dL
== END 2025-05-05 08:03 | disposition home or self-care (01) ==
LOC: CT 08:06
PROVIDERS: PCP Nurse Practitioner Family; Visit Provider Nurse Practitioner Family
DX: J44.9 Chronic obstructive pulmonary disease, unspecified (principal); Z87.891 Personal history of nicotine dependence; E78.5 Hyperlipidemia, unspecified; Z12.5 Encounter for screening for malignant neoplasm of prostate
CPT/HCPCS: 36415; 71271; 80053; 80061; 83036; 83525; 84436; 84443; 84481; 84550; 85025; G0103